=== PATIENT | male | born 1945 | race Caucasian/White ===

== ENCOUNTER 2024-12-23 19:59 | Emergency (ER) | payer MEDICARE, BC, SELFPAY ==
[2024-12-23] VITALS (17 sets, daily range): BP systolic 118–138; BP diastolic 60–84; PULSE 55–78; RESP 16–916; TEMP 36.8; O2SAT 91–98; BMI 22.4
--- OUTSIDE RECORDS SUMMARY | 2024-12-23 20:01 | XMS_ITS | Clinical Summary ---
Author Organization [facility] Address [address] , [address] [place] [address] Phone Care Team Providers Care Ripsaw Grader Name Role Phone Kathleen Kumar DO [phone] Conditions or Problems Problem Name Problem Code Onset Date Status Entry Date Provider Comment Standard Description Annotate Seizure disorder 386211717 (SNOMED CT) Active Linda Brennan MD Seizure disorder Medications Medication Instructions Start Date Stop Date Generic Name [facility] Provider VIMPAT 50 MG TABS 1 po bid for 1 wk then 2 po bid lacosamide [id number] Kathleen León Stacy DO LAMOTRIGINE 25 MG TABS 1 po qhs for 2 wks, then 1 bid for 2 wks, then 2 bid for 1 wk, then 3 bid for 1 wk, then 4 bid lamotrigine 61178523975 Kathleen León Stacy DO LAMOTRIGINE 25 MG TABS lamotrigine 08410303406 Kathleen León Stacy DO VIMPAT 50 MG TABS 1 po bid for 1 wk then 2 po bid lacosamide [id number] Kathleen Mau Stacy DO LEVETIRACETAM 750 MG TABS 2 tabs po in AM, 3 tabs pM levetiracetam [id number] Param Kennedy PA-C LEVETIRACETAM 750 MG TABS 3 po bid levetiracetam 60811940219 Chel Pop RN KEPPRA 1000 MG TABS 1 tablet twice a day levetiracetam 94773275832 Linda Brennan MD LEVETIRACETAM 750 MG TABS 2 po bid levetiracetam [id number] Kathleen León Stacy DO LEVETIRACETAM 750 MG TABS levetiracetam 40474807393 Kathleen León Stacy DO KEPPRA 500 MG TABS 2 tabs twice a day levetiracetam 81031392349 Linda Brennan MD KEPPRA 1000 MG TABS 1 tablet twice a day levetiracetam 73653522218 Linda Brennan MD KEPPRA 500 MG TABS 2 tabs twice a day LEVETIRACETAM [id number] Linda Brennan MD TERBINAFINE HCL TABS TERBINAFINE HCL TABS [id number] Linda Brennan MD KEPPRA 500 MG TABS 1 tab twice a day LEVETIRACETAM [id number] Linda Brennan MD Medications Administered No information available. Allergies, Adverse Reactions, Alerts Allergy Name Reaction Description Start Date Severity Statu s Provider PEANUTS Critical Active Linda karimi MD Results Date Name Value Unit Range Flag Description Internal Other: Verbal Autho rization/Emergency Contact - OBS VERBAL_EMER DONE Verbal au thorization and emergency contact Internal Other: Authorizatio n - OBS [id number] Yes GE use only - for LinkLog[employer] import when terms are not otherwise specified HIECONSENT Yes Consent To Release information to the Health Information Exchange (HIE) Telemedicine: Telemedicine V isit fax MEDS REVIEW Done Documenta tion of current medications (procedure) Plan of Care Type Date Detail Pending order Follow up Pending order Follow up Pending order Lamotrigine (Sweet ictal) Pending order Telemedicine Fol low up Pending order Telemedicine Fol low up Pending Order exclud ed from report: Pending order Lamotrigine (Sweet ictal) Pending order Telemedicine Fol low up Pending order Follow up KWABENA Pending order Levetiracetam (K eppra) Pending order Instructions for Staff Pending order Patient Instruct ions Pending order Follow up Pending order Creatinine Serum Pending order Levetiracetam (K eppra) Pending order We will contact you with test results Pending order Follow up Pending order Follow up after testing Pending order EEG Routine Procedures Code Procedure Name Date Entry Date ORDERS Telemedicine Follow up 09/10 ORDERS Telemedicine Follow up 08/26 ORDERS Follow up KWABENA ORDERS Levetiracetam (Keppra) 07/17 ORDERS Patient Instructions ORDERS Instructions for Staff 05/19 ORDERS Follow up ORDERS Levetiracetam (Keppra) 12/25 ORDERS Creatinine Serum ORDERS We will contact you with test results 07/09/23 ORDERS Follow up ORDERS Follow up after testing 2019 ORDERS EEG Routine [id number] EEG EXTENDED 41-60mins (END) Vital Signs Date Name Value Unit Description Height 71 [in_us] height E&M BMI (Body Mass Index) 22.14 kg/m2 Bod y Mass Index (Ratio) BP Diastolic 80 mm[Hg] blood pressu re, diastolic BP Systolic 145 mm[Hg] blood pressur e, systolic Heart Rate 68 /min pulse rate Weight Measured 158.2 [lb_av] weight E& M Weight Measured 158.2 [lb_av] weight E& M Immunizations No information available. Advance Directives No information available.
--- OUTSIDE RECORDS SUMMARY | 2024-12-23 20:02 | XMS_ITS | Data Portability ---
Author Organization [place] - [facility], [employer] - [employer] [facility] Address [address] [place] [address] Assessment Encounter Date Assessment Date Assessment LastModified by Organization Details LastModified Time 09/03/2024 09/03/2024 ASSESSMENT: Patient is a good candidate for conservative care and the prognosis is for a favorable outcome that achieves the patients' goals. We discussed etiology, activity modifications, home care, and other treatment options. Initially, it is recommended that the patient receive in-office treatment 1 times per week for 8 weeks at which time a re-evaluation will be performed to determine an appropriate change in plan. Initially, treatment will focus on joint manipulation to restore range of motion and reduce pain. We will slowly progress to therapeutic exercises and activities to improve function, strength, and stability may also be used as warranted. If the patient is not responding as expected, more invasive procedures will be discussed along with a referral. All considerations above were discussed with the patient and questions answered to satisfaction. If the patient should have any additional questions, or should the condition evolve or worsen, the patient should not hesitate to contact our office. ASSESSMENT: Patient is a good candidate for conservative care and the prognosis is for a favorable outcome that achieves the patients' goals. We discussed etiology, activity modifications, home care, and other treatment options. Initially, it is recommended that the patient receive in-office treatment 1 times per week for 8 weeks at which time a re-evaluation will be performed to determine an appropriate change in plan. Initially, treatment will focus on joint manipulation to restore range of motion and reduce pain. We will slowly progress to therapeutic exercises and activities to improve function, strength, and stability may also be used as warranted. If the patient is not responding as expected, more invasive procedures will be discussed along with a referral. All considerations above were discussed with the patient and questions answered to satisfaction. If the patient should have any additional questions, or should the condition evolve or worsen, the patient should not hesitate to contact our office. ecram Not available 09/03/2024 18:54:22 10/12/2024 10/12/2024 ASSESSMENT: Patient is a good candidate for conservative care and the prognosis is for a favorable outcome that achieves the patients' goals. We discussed etiology, activity modifications, home care, and other treatment options. Initially, it is recommended that the patient receive in-office treatment 1 times per week for 8 weeks at which time a re-evaluation will be performed to determine an appropriate change in plan. Initially, treatment will focus on joint manipulation to restore range of motion and reduce pain. We will slowly progress to therapeutic exercises and activities to improve function, strength, and stability may also be used as warranted. If the patient is not responding as expected, more invasive procedures will be discussed along with a referral. All considerations above were discussed with the patient and questions answered to satisfaction. If the patient should have any additional questions, or should the condition evolve or worsen, the patient should not hesitate to contact our office. ASSESSMENT: Patient is a good candidate for conservative care and the prognosis is for a favorable outcome that achieves the patients' goals. We discussed etiology, activity modifications, home care, and other treatment options. Initially, it is recommended that the patient receive in-office treatment 1 times per week for 8 weeks at which time a re-evaluation will be performed to determine an appropriate change in plan. Initially, treatment will focus on joint manipulation to restore range of motion and reduce pain. We will slowly progress to therapeutic exercises and activities to improve function, strength, and stability may also be used as warranted. If the patient is not responding as expected, more invasive procedures will be discussed along with a referral. All considerations above were discussed with the patient and questions answered to satisfaction. If the patient should have any additional questions, or should the condition evolve or worsen, the patient should not hesitate to contact our office. ecram Not available 10/12/2024 14:16:51 Plan of Treatment Reminders Order Date Submit Date Provider Last Modified By Organization Details Last Modified Time Details Appointments None record ed. Lab None record ed. Referral None record ed. Procedures None record ed. Surgeries None record ed. Imaging None record ed. Medication Orders None record ed. Patient TargetsNo targets recorded. Patient InstructionsNo instructions recorded. Reason for Referral None Reported. Problems Name Problem SNOMED Code Status Onset Date Resolution Date Notes Provider Name and Address Organization Details Recorded Time Neck pain 91778206 Active 2024 Jordon Lewis DC [address] [place], [address], [place] [facility] 18:54:19 Cervical segmental dysfunction 475949431 Active 2024 Jordon Lewis DC [address], [place], [address], [facility] [place] [facility] 18:54:19 Lumbar segmental dysfunction 905125229 Active 2024 Jordon Lewis DC [address], [place], [address], [facility] [place] [facility] 18:54:19 Thoracic segmental dysfunction 200662489 Active 2024 Jordon Lewis DC [address], [place], [address], [facility] [place] [facility] 18:54:19 Low back pain 270745984 Active 2024 Jordon Lewis DC [address], [place], [address], [facility] [place] [facility] 18:54:23 Somatic dysfunction of sacral spine 197812181 Active 2024 Jordon Lewis DC [address], [place], [address], [facility] 18:54:23 Problem Notes None recorded. Procedures Surgical History Date Name Laterality Status Provider Name and Address Organization Details Recorded Time 5 46021: Spinal manipulation , 3 to 4 regions completed Jordon Lewis DC [address], [place], [address], [facility] 10/12/2024 14:16:50 5 [address]001: Spinal manipulation , 3 to 4 regions completed Jordon Lewis DC [address], [address], [facility] 09/03/2024 19:11:23 Imaging Results None recorded. Procedure Notes None recorded. Medical Equipment None Reported. Medications Name Sig Start Date Stop Date Status Note LastModified by Organization Details LastModified Time levetiraceta m 500 mg tablet TAKE ONE TABLET BY MOUTH TWICE DAILY* active Not Available Not Available No t Available Anucort-HC 25 mg suppository insert 1 suppository by rectal route twice daily.* active Not Available Not Available No t Available oxcarbazepin e 300 mg tablet TAKE 1 & 1/2 TABLETS BY MOUTH IN THE MORNING AND 1 TAB IN THE EVENING* active Not Available Not Available No t Available hydrocortiso ne 2.5 % topical cream with perineal applicator Apply topically to affected area(s) three times daily.* active Not Available Not Available No t Available benzonatate 100 mg capsule TAKE ONE CAPSULE BY MOUTH THREE TIMES DAILY NEEDED FOR COUGH* active Not Available Not Available N ot Available codeine 10 mg-guaifenes in 100 mg/5 mL oral liquid Take 5 TO 10 mL by mouth every 4 hours if needed for Cough.* active Not Available Not Available No t Available levetiraceta m 750 mg tablet TAKE ONE TABLET BY MOUTH TWICE DAILY* active Not Available Not Available No t Available GaviLyte-G 236 gram-22.74 gram-6.74 gram-5.86 gram oral solution Drink 2 liters the day before colonoscopy and 2 liters 6 hours before colonoscopy appointment * active Not Available Not Available No t Available baclofen 5 mg tablet TAKE ONE OR TWO TABLETS BY MOUTH THREE TIMES DAILY NEEDED FOR HICCUPS* active Not Available Not Available No t Available Vitals None Recorded Social History None recorded. Functional Status None recorded. Mental Status None recorded. Family History Nothing Reported. Medical History No medical history recorded. Past Encounters Encounter ID Performer Location Encounter Start Date Encounter Closed Date Diagnosis/Indication Diagnosis SNOMED-CT Code Diagnosis ICD10 Code Diagnosis Note [id number] [facility] Cavaz[facility] [address] [place] [address] 09/03/2024 15:17:17 09/04/2024 09:46:34 Cervical segmental dysfunction 324761192 M99.01 Neck pain 07279267 M54.2 Thoracic s egmental dysfunction 700677911 M99.02 Lumbar seg mental dysfunction 418096937 M99.03 Low back pain 716155061 M54.50 Somatic dy sfunction of sacral spine 863447714 M99.04 [id number] [facility]A Cavazos [facility] [address] [place] [address] 10/12/2024 11:10:55 10/12/2024 15:37:09 Cervical segmental dysfunction 505298654 M99.01 Neck pain 41663234 M54.2 Thoracic s egmental dysfunction 267123777 M99.02 Lumbar seg mental dysfunction 229709403 M99.03 Low back pain 683244871 M54.50 Somatic dy sfunction of sacral spine 631898956 M99.04 Health Concerns Section Related Observation LastModified by Organization Detai ls LastModified Time None Recorded Concern Status LastModified by Organization Details LastModified Time None Recorded Advance Directives Directive None Recorded Payers Insurance Date Sequence Insurance Name Policy Number Policy Stokes Covered Member ID Stokes Member ID Guarantor Name 10/11/2024 1 [place] [employer] Javier Scott [id number] Javier Scott 10/11/2024 2 [place] [id number] Javier Scott [id number] Javier Scott Notes Date Note Type Note Provider Name and Address Organization Details Recorded Time 09/03/2024 text/html HPI - Cervical SpineReported bypatient.Location: right Quality:aching Severity:moderate Timing:gradual Context:atraumatic Alleviating Factors:chiropracti c care; rest Aggravating Factors:bending; twisting/turning Associated Symptoms:no numbness/tinglingHP I - Lumbar SpineReported bypatient.Location: right; With radiation to knee Quality:aching Severity:mild Context:bending; lifting; twisting Aggravating Factors:lifting; twisting; bending/squatting Alleviating Factors:nothing helps Jordon Lewis DC [address], [place], [address], [facility] 09/03/2024 19:11:37 10/12/2024 text/html HPI - Cervical SpineReported bypatient.Location: right Quality:aching Severity:moderate Timing:gradual Context:atraumatic Alleviating Factors:chiropracti c care; rest Aggravating Factors:bending; twisting/turning Associated Symptoms:no numbness/tinglingHP I - Lumbar SpineReported bypatient.Location: right; With radiation to knee Quality:aching Severity:mild Context:bending; lifting; twisting Aggravating Factors:lifting; twisting; bending/squatting Alleviating Factors:nothing helps Jordon Lewis DC [address] [place] [address], [place], [address], [facility] 10/12/2024 14:17:49
--- OUTSIDE RECORDS SUMMARY | 2024-12-23 20:02 | XMS_ITS | Data Portability ---
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 01/20, good FLOW, DRY. PSA STABLE 0.13. INTERESTED IN TREATMENTS FOR E.D.REVIEWED MEDICAL THERAPY ORDERED, AND REVIEWED PSA PLAN SCRIPTS FOR VIN CASANOVA. RTC 6 MO PSA. Not available 03/29/2023 13:11:34 10/04/2023 10/04/2023 78 y/o male, HX CAP, G8,(4,4), G6(3,3), S/P CRYOTHERAPY 2021. DOING WELL. GOOD FLOW DRY. PSA 0.35 ORDERED, REVIEWED PSA PLAN RTC 6 MO.WILL GET PSA IN [place]. Not available 10/04/2023 11:38:53 04/11/2024 04/11/2024 78 y/o male, hx cap, g6, g8(4,4), S/P CRYOTHERAPY 2021. DOING WELL. GOOD FLOW, DRY. PSA STABLE 0.15 , NO COMPLAINTS. ORDERED, REVIEWED PSA PLAN HE WILL GET PSA IN 6 MO IN [place]. Not available 04/11/2024 12:21:21 12/05/2024 12/05/2024 79 Y/O MALE, HX CAP, G6, G8(4,4).S/P CRYOTHERAPY 2021. DOING WELL. GOOD FLOW, DRY. PSA 1.5. DISCUSSED NEED FOR FURTHER EVALUATION IF PSA RISES ABOVE 2.5-3.0. WOULD DO MRI SCAN AND RE BX. IF NEEDED, ORDERED REVIEWED PSA PLAN RTC 6 MO. WILL FOLLOWUP WITH DR BAKER OR ANJELICA.PSA. IF RISES DO MRI SCAN. RE BX, POSSIBLE RADIATION. Not available 12/10/2024 13:20:46 Plan of Treatment Reminders Order Date Submit Date Provider Last Modified By Organization Details Last Modified Time Details Appointments PSA 10 2024 10:20A M [facility] Not available Not available Not available APC EST 2024 10:30A M RANDALL SRINIVASAN Not available Not available Not available Lab PSA, serum or plasma 2024 025 ssamb [facility], [address], [place], [address], 12/05/2024 14:30:28 PSA, serum or plasma 2023 024 [facility], [address], [place], [address], 04/11/2024 12:22:15 PSA, serum or plasma 2023 024 ssamb [facility], [address], [place], [address], 10/04/2023 11:25:53 PSA, serum or plasma 2022 023 [facility], [address], [place], [address], 03/29/2023 11:54:06 Referral None recorded . Procedures None recorded . Surgeries None recorded . Imaging None recorded . Medication Orders Viagra 100 mg tablet 2022 023 ssamb Not available 03/30/2023 10:23:37 Cialis 20 mg tablet 2022 023 ss[facility] Not available 03/30/2023 10:23:37 Patient TargetsNo targets recorded. Patient InstructionsNo instructions recorded. Reason for Referral None Reported. Results Created Date Observation Date Name Description Value Unit Range Abnormal Flag Note LastModifiedBy Organization Detail LastModifiedTime 03/29/2003/29/2023 PSA, serum or plasm a PSA 0.39ng /mL 0-4.0 Not Available [facility] [address], [place], [address], 03/29/2023 11:53:46 10/04/19 24 10/04/2023 PSA, serum or plasm a PSA 0.35 ng/mL 0-4.0 Not Available [facility] [address], [place], [address], 10/04/2023 11:11:10 04/11/20 24 04/11/2024 PSA, serum or plasm a PSA 0.15 ng/mL 0-4.0 NG/mL Not Available [facility] [address], [place], [address], 04/11/2024 11:54:15 12/06/19 25 12/05/2024 PSA, serum or plasm a PSA 1.5 ng/ml 0-4.0 NG/mL Not Available [facility] [address], [place], [address], 12/05/2024 14:30:07 Result Notes None recorded. Problems Name Problem SNOMED Code Status Onset Date Resolution Date Notes Provider Name and Address Organization Details Recorded Time Malignant neoplasm of prostate 869236505 Active 020 Tay cervantes [facility] 0 10:56:50 Problem Notes None recorded. Procedures Surgical History Date Name Laterality Status Provider Name and Address Organization Details Recorded Time 5 COMPLEX VISIT completed Valentin Jimenez MD [address] [facility],[address], [place], [address], [facility] 12/10/2024 13:17:47 4 COMPLEX VISIT completed Valentin Jimenez MD [address] [place] [address],[address], [place], [address], [facility] 04/11/2024 12:21:48 4 CREPE MAKER/blood draw completed Valentin Jimenez MD [address] [place] [address],[address], [place], [address], [facility] 04/11/2024 11:54:00 4 CREPE MAKER/blood draw completed Valentin Jimenez MD [address] [place] [address],[address], [place], [address], [facility] 10/04/2023 11:11:06 3 Blood Draw/CREPE MAKER/PSA RESULTS completed Valentin Jimenez MD [address] [place] [address],[address], [place], [address], [facility] 03/29/2023 11:53:42 3 CREPE MAKER/blood draw completed Valentin Jimenez MD [address] [place] [address],[address], [place], [address], [facility] 09/07/2022 11:19:39 2 Blood Draw/CREPE MAKER/PSA RESULTS completed Valentin Jimenez MD [address] [place] [address],[address], [place], [address], [facility] 03/10/2022 14:46:12 1 Blood Draw/CREPE MAKER/PSA RESULTS completed Valentin Jimenez MD [address] [place] [address],[address], [place], [address], [facility] 03/27/2021 11:12:53 1 Blood Draw/CREPE MAKER/PSA RESULTS completed Valentin Jimenez MD [address] [place] [address],[address], [place], [address], [facility] 09/24/2020 11:02:16 0 Colonoscopy completed Ida Stanley [facility] 03/28/2021 11:55:18 0 Blood Draw/CREPE MAKER/PSA RESULTS completed Lizzeth Reina [facility] 03/26/2020 12:00:39 0 cryosurgery completed Tay Munoz [facility] 01/22/2020 10:57:26 Imaging Results None recorded. Procedure Notes None recorded. Medical Equipment None Reported. Allergies No known drug allergies Medications Name Sig Start Date Stop Date Status Note LastModified by Organization Details LastModified Time prednisone 10 mg tablet TAKE 3 TABLETS BY MOUTH ONCE DAILY WITH FOOD FOR 2 DAYS, THEN TAKE 2 TABLETS DAILY WITH FOOD FOR 2 DAYSM, THEN TAKE 1 TABLET DAILY WITH FOOD 03/10 completed Not Available Not Available Not Available cetirizine 10 mg tablet Take 1 Tablet (10 mg) by mouth once daily. active Not Available Not Available No t Available levetiracet am 500 mg tablet TAKE ONE TABLET BY MOUTH TWICE DAILY* active Not Available Not Available No t Available Anucort-HC 25 mg suppository insert 1 supposito ry by rectal route twice daily.* active Not Available Not Available No t Available oxcarbazepi ne 300 mg tablet TAKE 1 & 1/2 TABLETS BY MOUTH IN THE MORNING AND 1 TAB IN THE EVENING* active Not Available Not Available No t Available sulfamethox azole 800 mg-trimetho prim 160 mg tablet 03/10 completed Not Available Not Available Not Available tramadol 50 mg tablet 03/10 completed Not Available Not Available Not Available triamcinolo ne acetonide 0.1 % topical cream APPLY TO AFFECTED AREA ON LEGS 1-2X DAILY FOR UP TO 2 WEEKS, TAKE A 2 WEEK BREAK THEB REPEAT NEEDED FOR FLARES active Not Available Not Available No t Available lamotrigine 25 mg tablet TAKE 1 TAB BY MOUTH ONCE DAILY AT BEDTIME FOR 2 WEEKS, THEN 1 TAB TWICE DAILY FOR 2 WEEKS, THEN 2 TABS TWICE DAILY FOR 1 WEEK, THEN 3 TABS T 03/10 completed Not Available Not Available Not Available hydrocortis one 2.5 % topical cream with perineal applicator Apply topically to affected area(s) three times daily.* active Not Available Not Available No t Available terbinafine HCl 250 mg tablet TAKE ONE TABLET BY MOUTH DAILY FOR TWO WEEKS, THEN TAKE A TWO WEEK BREAK. REPEAT FOR A TOTAL OF FOUR MONTHS. 03/29 completed Not Available Not Available Not Available hydrocortis one valerate 0.2 % topical ointment Apply topically to affected area(s) 2 times daily. 03/10 completed Not Available Not Available Not Available tamsulosin 0.4 mg capsule Take 1 capsule every day by oral route for 30 days. 03/10 completed Not Available Not Available Not Available benzonatate 100 mg capsule TAKE ONE CAPSULE BY MOUTH THREE TIMES DAILY NEEDED FOR COUGH* 04/11 completed Not Available Not Available Not Available cephalexin 500 mg capsule TAKE ONE CAPSULE BY MOUTH THREE TIMES DAILY FOR 7 DAYS 03/10 completed Not Available Not Available Not Available triamcinolo ne acetonide 0.1 % topical ointment Apply to affected area(S) three times daily active Not Available Not Available No t Available hydrocortis one 2.5 % topical cream apply to affected area(s) by topical route twice daily as needed for itching. 03/10 completed Not Available Not Available Not Available codeine 10 mg-guaifene sin 100 mg/5 mL oral liquid Take 5 TO 10 mL by mouth every 4 hours if needed for Cough.* 04/11 completed Not Available Not Available Not Available levetiracet am 750 mg tablet TAKE ONE TABLET BY MOUTH TWICE DAILY* active Not Available Not Available No t Available Viagra 100 mg tablet Take 1 tablet as needed by oral route. 2022 active Not Available Not Available Not Avai lable levofloxaci n 500 mg tablet 03/10 completed Not Available Not Available Not Available lamotrigine 100 mg tablet TAKE ONE TABLET BY MOUTH TWICE DAILY active Not Available Not Available No t Available naproxen 500 mg tablet 03/10 completed Not Available Not Available Not Available Cialis 20 mg tablet TAKE ONE TABLET NEEDED, NOT TO EXCEED ONE PILL IN 72 HOURS 2022 active Not Available Not Available Not Avai lable Keppra active Not Available Not Availa ble Not Available levetiracet am 1,000 mg tablet TAKE ONE TABLET BY MOUTH TWICE DAILY active Not Available Not Available No t Available GaviLyte-G 236 gram-22.74 gram-6.74 gram-5.86 gram oral solution Drink 2 liters the day before colonosco py and 2 liters 6 hours before colonosco py appointme nt* 04/11 completed Not Available Not Available Not Available baclofen 5 mg tablet TAKE ONE OR TWO TABLETS BY MOUTH THREE TIMES DAILY NEEDED FOR HICCUPS* active Not Available Not Available No t Available Vitals Date Recorded Body height Body mass index (BMI) Body weight Provider Name and Address Organization Details Last Updated DateTime 10/04/2023 182.88 cm 21.4 kg/m2 20120.59 dany Jimenez MD [address] [place] [address],[address] 10/04/2023 11:10:02 Date Recorded Body height Body mass index (BMI) Body weight Provider Name and Address Organization Details Last Updated DateTime 12/05/2024 182.88 cm 21.7 kg/m2 55659.78 g Tay Munoz [facility] 12/05/2024 14:12:34 Date Recorded Body height Body mass index (BMI) Body weight Provider Name and Address Organization Details Last Updated DateTime 03/29/2023 182.88 cm 21.4 kg/m2 77066.59 dany Jimenez MD [address] [place] [address],[address] 03/29/2023 11:51:27 Date Recorded Body height Body mass index (BMI) Body weight Provider Name and Address Organization Details Last Updated DateTime 04/11/2024 182.88 cm 21.7 kg/m2 97393.78 dany Jimenez MD [address] [place] [address],[address] 04/11/2024 11:52:42 Social History Question Answer Notes LastModified by Organ[employer] Details LastModified Time Tobacco Smoking Status [facility] 10:57:02 What Is Your Level Of Caffeine Consumption? None Information not available 10/04/2023 What Was The Date Of Your Most Recent Tobacco Screening? 12/05/2024 [facility] Information not available 12/05/2024 Has Tobacco Cessation Counseling Been Provided? No Information not available 10/04/2023 Sex: Unknown Functional Status Question Answer Note LastModified by Organizat ion Details LastModified Time Do you use any illicit or recreational drugs? No Information not available 10/04/2023 Do you or have you ever used any other forms of tobacco or nicotine? No Information not available 10/04/2023 What is your level of alcohol consumption? None Information not available 03/29/2023 Mental Status None recorded. Family History Relationship Description Onset Age of this Age Resolved Age Notes LastModified by Organization Details LastModified Time Father No current problems or disability Not available 10/03 11:14:24 Mother No current problems or disability Not available 10/03 11:14:24 Medical History Condition Response Other N High Blood Pressure N Kidney Stones N Lung Disease N Depression N GERD/Acid Reflux N Diabetes N Sexually Transmitted Infection N Bleeding Disorder N Cancer Y High Cholesterol N Heart Disease N Immunizations Vaccine Type Date Status Note Provider Nam e and Address Organization Details Recorded Time zoster recombinant 1 completed Valentin Jimenez MD [address] [place] [address],[address], [address], [facility] 10/04/2023 11:10:09 zoster recombinant 1 completed Valentin Jimenez MD [address] [place] [address],[address], [address], [facility] 10/04/2023 11:10:09 Influenza, adjuvanted, quadrivalent, PF 0 completed Valentin Jimenez MD [address] [place] [address],[address], [address], [facility] 10/04/2023 11:10:09 Influenza, adjuvanted, quadrivalent, PF 1 completed Valentin Jimenez MD [address] [place] [address],[address], [address], [facility] 10/04/2023 11:10:09 COVID-19, mRNA, LNP-S, PF, 100 mcg/0.5mL dose or 50 mcg/0.25mL dose 1 completed Valentin Jimenez MD [address] [place] [address],[address], [address], [facility] 10/04/2023 11:10:09 COVID-19, mRNA, LNP-S, PF, 100 mcg/0.5mL dose or 50 mcg/0.25mL dose 1 completed Valentin Jimenez MD [address] [place] [address],[address], [place], [address], [facility] 10/04/2023 11:10:09 COVID-19, mRNA, LNP-S, PF, 100 mcg/0.5mL dose or 50 mcg/0.25mL dose 1 completed Valentin Jimenez MD [address] [place] [address],[address], [place], [address], [facility] 10/04/2023 11:10:09 Tdap 8 completed Valentin Jimenez MD [address] [place] [address],[address], [place], [address], [facility] 10/04/2023 11:10:09 Td (adult), 5 Lf tetanus toxoid, preservative free, adsorbed 6 completed Valentin Jimenez MD [address] [place] [address],[address], [place], [address], [facility] 10/04/2023 11:10:09 Td (adult), 2 Lf tetanus toxoid, preservative free, adsorbed 6 completed Valentin Jimenez MD [address] [place] [address],[address], [place], [address], [facility] 10/04/2023 11:10:09 COVID-19, mRNA, LNP-S, PF, 30 mcg/0.3 mL dose, karan-sucrose 2 completed Valentin Jimenez MD [address] [place] [address],[address], [place], [address], [facility] 04/11/2024 11:52:31 Influenza, high-dose, quadrivalent, PF 2 completed Not Available [facility] 12/05/2024 14:01:12 COVID-19, mRNA, LNP-S, bivalent, PF, 50 mcg/0.5 mL or 25mcg/0.25 mL dose 2 completed Not Available [facility] 12/05/2024 14:01:12 Pneumococcal conjugate PCV20, polysaccharide MSQ025 conjugate, adjuvant, PF 3 completed Not Available [facility] 12/05/2024 14:01:12 Influenza, high-dose, quadrivalent, PF 3 completed Not Available [facility] 12/05/2024 14:01:12 Past Encounters Encounter ID Performer Location Encounter Start Date Encounter Closed Date Diagnosis/Indication Diagnosis SNOMED-CT Code Diagnosis ICD10 Code Diagnosis Note [id number] [place] [id number] 01/22/2020 10:49:30 01/23/2020 09:36:11 Benign prostatic hyperplasia with outflow obstruction 518478925 N40.1 Malignant neoplasm of prostate 916615166 C61 [id number] MD Fernanda [address] [place] [id number] 03/26/2020 11:34:52 03/26/2020 14:30:13 Malignant neoplasm of prostate 944035821 C61 [id number] MD Fernanda [address] [place] [id number] 09/24/2020 10:49:31 09/25/2020 16:19:16 Malignant neoplasm of prostate 956712046 C61 [id number] MD Fernanda [address] [place] [id number] 03/27/2021 10:50:55 03/30/2021 09:23:15 Malignant neoplasm of prostate 657901642 C61 [id number] MD Fernanda [address] [place] [id number] 09/25/2021 10:33:09 09/28/2021 09:00:53 Malignant neoplasm of prostate 473195510 C61 [id number] MD Fernanda Fonseca. [place] [id number] 03/10/2022 14:37:11 03/12/2022 13:10:21 Malignant neoplasm of prostate 882986797 C61 Prostate s pecific antigen above reference range 469297087 R97.20 [id number] MD Fernanda Fonsec[address]. [place] [id number] 09/07/2022 11:10:34 09/09/2022 10:47:12 Malignant neoplasm of prostate 356928898 C61 [id number] [facility] [address] [place] [id number] 03/29/2023 11:17:56 04/06/2023 11:27:05 Malignant neoplasm of prostate 256071823 C61 [id number] [facility] [address] [place] [id number] 03/29/2023 11:17:56 04/08/2023 04:02:29 [id number] MD MICHAELA [facility] [address] [place] [id number] 10/04/2023 11:01:14 10/05/2023 12:16:36 Malignant neoplasm of prostate 918935261 C61 [id number] MD MICHAELA [facility]on[facility] [address] [place] [address] 04/11/2024 11:42:43 04/12/2024 14:19:01 Malignant neoplasm of prostate 436077509 C61 [id number] Valentin Jimenez MD [facility] [address] [place] [id number] 12/05/2024 13:58:26 12/11/2024 16:53:52 Malignant neoplasm of prostate 143275696 C61 Health Concerns Section Related Observation LastModified by Organization Detai ls LastModified Time None Recorded Concern Status LastModified by Organization Details LastModified Time None Recorded Advance Directives Directive None Recorded Payers Insurance Date Sequence Insurance Name Policy Number Policy Stokes Covered Member ID Stokes Member ID Guarantor Name 12/11/2024 1 [place] MEDICARE COST [id number] Javier Scott [id number] Javier Scott 12/05/2024 1 [place] [id number] Javier Scott [id number] Javier Scott 12/05/2024 1 [place] - [facility] Javier Scott [id number] Javier Guy Tyler Notes Date Note Type Note Provider Name and Address Organization Details Recorded Time 03/29/2023 text/html 77 Y/O MALE, HX OF AN ELEVATED PSA . SMALL PROSTATE, NEG PROSTATE EXAM. PSA 11. PROSTATE 15 G. G6, G8(4,4) . NEG C.T. NEG BONE SCAN . HAD CRYO ON 12/23.doing well. good flow, mild freq. MOST RECENT PSA 0.11 ON 09/07/22 PSA TODAY 0.39. DISCUSSED OPTIONS FOR E.D. Valentin Jimenez MD [address] [place] [address],[address], [address], [facility] 03/29/2023 13:12:08 10/04/2023 text/html 77 Y/O MALE, HX OF AN ELEVATED PSA . SMALL PROSTATE, NEG PROSTATE EXAM. PSA 11. PROSTATE 15 G. G6, G8(4,4) . NEG C.T. NEG BONE SCAN . HAD CRYO ON 12/23.doing well. good flow, mild freq. MOST RECENT PSA 0.11 ON 09/07/22 PSA TODAY 0.39. DISCUSSED OPTIONS FOR E.D. PSA TODAY 10/04/23: 0.35 Valentin Jimenez MD [address] [place] [address],[address], [place], [address], [facility] 10/04/2023 11:39:29 04/11/2024 text/html 77 Y/O MALE, HX OF AN ELEVATED PSA . SMALL PROSTATE, NEG PROSTATE EXAM. PSA 11. PROSTATE 15 G. G6, G8(4,4) . NEG C.T. NEG BONE SCAN . HAD CRYO ON 12/23.doing well. good flow, mild freq. MOST RECENT PSA 0.11 ON 09/07/22 PSA TODAY 0.39. DISCUSSED OPTIONS FOR E.D. PSA TODAY 10/04/23: 0.35 PSA 04/11/24: 0.15 77 Y/O MALE, HX OF AN ELEVATED PSA . SMALL PROSTATE, NEG PROSTATE EXAM. PSA 11. PROSTATE 15 G. G6, G8(4,4) . NEG C.T. NEG BONE SCAN . HAD CRYO ON 12/23.doing well. good flow, mild freq. MOST RECENT PSA 0.11 ON 09/07/22 PSA TODAY 0.39. DISCUSSED OPTIONS FOR E.D. PSA TODAY 10/04/23: 0.35 PSA 04/11/24: 0.15doing well no complaints. Valentin Jimenez MD [address] [facility] [facility],[address], [place], [address], [facility] 04/11/2024 12:22:18 12/05/2024 text/html 77 Y/O MALE, HX OF AN ELEVATED PSA . SMALL PROSTATE, NEG PROSTATE EXAM. PSA 11. PROSTATE 15 G. G6, G8(4,4) . NEG C.T. NEG BONE SCAN . HAD CRYO ON 12/23.doing well. good flow, mild freq. MOST RECENT PSA 0.11 ON 09/07/22 PSA TODAY 0.39. DISCUSSED OPTIONS FOR E.D. PSA 10/04/23: 0.35PSA 04/11/24: 0.15doing well no complaints. PSA TODAY 12/05/2024: 1.5 Valentin Jimenez MD [address] [place] [address],[address], [place], [address], [facility] 12/10/2024 13:21:59
--- OUTSIDE RECORDS SUMMARY | 2024-12-23 20:02 | XMS_ITS | Clinical Summary ---
Author Organization [facility] Address [address] [place] [address] Care Team Providers Care Visual Merchandising Associate Name Role Phone VotelMax MD Primary Care Provider + Allergies Active Allergy Reactions Criticality Noted Date Comments Peanut GI Upset Low 09/29/2021 Medications multivitamin (MVI) tablet Take 1 Tablet by mouth once daily. 0 2 Active levETIRAcetam (KEPPRA) 500 mg tablet levetiracetam 500 mg tablet TAKE ONE TABLET BY MOUTH TWICE DAILY. take in addition to one 750mg tablet twice daily for a total dose of 1250mg twice daily 2 Active OXcarbazepine (TRILEPTAL) 300 mg tablet TAKE 1 & 1/2 TABLETS BY MOUTH IN THE MORNING AND 1 TAB IN THE EVENING* 4 Active levETIRAcetam 750 mg tabletIndicati ons:Epilepsy with partial complex seizures (HC) Take one tablet twice daily with a 500 mg tablet 5 Active lamoTRIgine 100 mg tabletIndicati ons:Epilepsy with partial complex seizures (HC) Take 1.5 tabs in the morning and 1 tab in the evening 5 Active Active Problems Problem Noted Date Diagnosed Date Epilepsy with partial complex seizures 2 Syncope 03/30/2021 Focal seizure 11/22/2020 Memory problem 11/22/2020 Hyperglycemia 11/22/2020 Hyperkalemia 11/22/2020 Adenomatous colon polyp 05/08/2020 Overview (11/18/2023): Colonoscopy 05/2020 multiple polyps, repeat in 3 years Colonoscopy 11/2023 SSA, TA, repeat in 5 years Malignant tumor of prostate 01/22/2020 Overview (03/30/2021): Cryoablation summer 2019 Left bundle branch block (LBBB) on electrocardio gram 12/17/2015 Assessment & Plan (12/06/2019 1:33 PM CDT): Nuclear Medicine Scan in 2016 with 66% EJF. Encounters Date Type Department Care Team Description 11/14/2024 10:25 AM CDT Office Visit [facility] [address] [place] [address] Max Burns MD Medicare ANNUAL (subsequent) Visit (79 year old male) 11/13/2024 Travel from Last 3 Months Immunizations Immunization Administration Dates Next Due COVID-19 vaccine (Moderna 10 0mcg/0.5mL) MAGDALENA KNOTT 05/06/2021,09/19/2020,08/22/2020 COVID-19 vaccine ([employer] NT[employer] 30mcg/0.3mL) 12YO+ LAQUITA-SUCROSE MAGDALENA KNOTT 11/02/2021 Influenza, High-dose Quadriv alent Inactivated 04/18/2023,04/19/2022 Influenza, Inactivated AIIV4 (Age 65+ Years) Preserv Free 04/23/2021,04/16/2020 Pneumococcal Conj 20-valent (Prevnar 20) 023 Td (Age >=7 Years) 12/19/1995 Td, Preservative Free (age >= 7 Years) 6 Tdap 09/03/2017,04/07/2006,12/19/1995 Zoster (Shingrix-RZV, recombinant) 06/29/2021, Family History Medical History Relation Name Comments Cancer Father Brain, lung and lip CA Cancer Mother Intestinal Other Other no history of s eizures Relation Name Status Comments Father (Age 83) Brain canc er Mother (Age 83) Old age Other Social History Tobacco Use Types Packs/Day Years Used Date Smoking Tobacco: Never Smokeless Tobacco: Never Tobacco Cessation:Counseling Given: Yes Alcohol Use Standard Drinks/Week Comments Never 0 (1 standard drink = 0.6 oz pur e alcohol) PHQ-2 Answer Date Recorded PHQ-2 TOTAL SCORE 0 11/13/2024 Social Connections Answer Date Recorded Do you often feel lonely or isolated from those around you? 0 11/13/2024 Financial Resource Strain Answer Date R ecorded Difficulty of Paying Living Expenses 3 11/13/2024 Difficulty of Paying Living Expenses Not on file 11/13/2024 Food Insecurity Answer Date Recorded Do you worry your food will run out before you are able to buy more? 1 11/13/2024 Transportation Needs Answer Date Record ed Does lack of transportation keep you from medica l appointments? 1 11/13/2024 Does lack of transportation keep you from work, meetings or getting things that you need? 1 11/13/2024 Housing Stability Answer Date Recorded What is your housing situation today? 1 11/13/2024 Utilities Answer Date Recorded Do you have trouble paying f or utilities (for example, heat, electricity, water, phone)? 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67 11/14/2024 10:19 AM CDT Plan of Treatment Health Maintenance Due Date Last Done Comments RSV vaccine for adults or (1 - 1-dose 75+ series) 2021 COVID-19 vaccine series ( season) 2024 04/19/2022, 11/02/2021, 05/06/2021, Additional history exists Influenza Vaccine (Season Ended) 2025 04/23/2021, 04/16/2020 Depression screening for age 12+ 11/13/2025 11/13/2024, 11/10/2023, 11/10/2023, Additional history exists BMI (ht and wt on same day) for age 18+ 11/14/2025 11/14/2024, 11/10/2023, 09/28/2023, Additional history exists Medicare Wellness for age 65+ 11/15/2025 11/14/2024, 11/10/2023, 11/04/2022, Additional history exists Tetanus booster 09/04/2027 09/03/2017, 0 11/2005, 04/07/2006, Additional history exists Tdap Completed 09/03/2017, 11/2005, 12/19/1995 Zoster (shingles) series for age 50+ Completed 06/29/2021, 04/28/2021 Hepatitis C screening for age 18-79 Completed 11/02/2021 Pneumococcal series for age 50+ Completed 11/04/2022 Hepatitis B series for 19+ Aged Out N o longer eligible based on patient's age to complete this topic Procedures Procedure Name Priority Date/Time Associated Diagnosis Comments CBC WITH AUTO DIFFERENTIAL Routine 11/14/2024 11:04 AM CDT Medicare annual wellness visit, subsequent ALT (SGPT) Routine 11/14/2024 11:04 AM CDT Lipid screening BASIC METABOLIC PANEL Routine 11/14/2024 11:04 AM CDT Epilepsy with partial complex seizures (HC) ANTI HCV Routine 11/02/2021 10:22 AM CDT Need for hepatitis C screening test from Last 3 Months or Most Recently Relevant to Health Maintenance Results * (ABNORMAL) CBC AND DIFFERENTIAL (11/14/2024 11:04 AM CDT) [facility] WHITE BLOOD CELL COUNT 5.8 3.8 - 10.8 Thousand/u L [facility] RED BLOOD CELL COUNT 4.85 4.20 - 5.80 Million/uL [facility] HEMOGLOBIN 15.3 13.2 - 17.1 g/dL [facility] HEMATOCRIT 46.4 38.5 - 50.0 % [facility] MCV 95.7 80.0 - 100.0 fL [facility] MCH 31.5 27.0 - 33.0 pg [facility] MCHC 33.0 32.0 - 36.0 g/dL [facility] Comment: For adults, a slight decrease in the calculated MCHC value (in the range of 30 to 32 g/dL) is most likely not clinically significant; however, it should be interpreted with caution in correlation with other red cell parameters and the patient's clinical condition. RDW 12.2 11.0 - 15.0 % [facility] PLATELET COUNT 212 140 - 400 Thousand/u L [facility] MPV 9.9 7.5 - 12.5 fL [facility] ABSOLUTE NEUTROPHILS 4,559 1,500 - 7,800 cells/uL [facility] ABSOLUTE LYMPHOCYTES 626(L) 850 - 3,900 cells/uL [facility] ABSOLUTE MONOCYTES 505 200 - 950 cells/uL [facility] ABSOLUTE EOSINOPHILS 81 15 - 500 cells/uL [facility] ABSOLUTE BASOPHILS 29 0 - 200 cells/uL [facility] NEUTROPHILS 78.6 % [facility] LYMPHOCYTES 10.8 % [facility] MONOCYTES 8.7 % [facility] EOSINOPHILS 1.4 % [facility] BASOPHILS 0.5 % [facility] Blood BLOOD SPECIMEN / Unknown 11/14/2024 11:04 AM CDT 11/14/2024 11:05 AM CDT us Max Burns MD HEMATOLOGY Final Re sult Performing Organization Address [facility]/ZIP Co de Phone Number [employer] [facility] [address] [place] [address], [facility] [address] [place] [address] * ALT (SGPT) (11/14/2024 11:04 AM CDT) [facility] ALT 12 9 - 46 U/L [facility] Blood BLOOD SPECIMEN / Unknown 11/14/2024 11:04 AM CDT 11/14/2024 11:05 AM CDT Max Burns MD CHEMISTRY Final Re sult Performing Organization Address [facility] Co de Phone Number [employer] [address] [address], [facility] [address] [place] [phone] * BASIC METABOLIC PANEL (11/14/2024 11:04 AM CDT) [facility] GLUCOSE 94 65 - 99 mg/dL [facility] Comment: Fasting reference interval UREA NITROGEN (BUN) 13 7 - 25 mg/dL [facility] CREATININE 1.12 0.70 - 1.28 mg/dL [facility] EGFR 67 > OR = 60 mL/min/1. 73m2 [facility] BUN/CREATININE RATIO SEE NOTE: 6 - 22 (calc) [facility] Comment: Not Reported: BUN and Creatinine are within reference range. SODIUM 139 135 - 146 mmol/L [facility] POTASSIUM 4.4 3.5 - 5.3 mmol/L [facility] CHLORIDE 100 98 - 110 mmol/L [facility] CARBON DIOXIDE 30 20 - 32 mmol/L [facility] ELECTROLYTE BALANCE 9 7 - 17 mmol/L (calc) [facility] CALCIUM 9.8 8.6 - 10.3 mg/dL [facility] Blood BLOOD SPECIMEN / Unknown 11/14/2024 11:04 AM CDT 11/14/2024 11:05 AM CDT us Max Burns MD CHEMISTRY Final Re sult [facility] [address] [place] [address], [facility] [address] [place] [address] * ANTI HCV (11/02/2021 10:22 AM CDT) Pathologist [facility] HEPATITIS C ANTIBODY Non-React casi Non-React casi 11/02/2021 6:53 PM CDT [facility] Comment:Antibodies to HCV no t detected; does not exclude the possibility of exposure to HCV. Blood BLOOD SPECIMEN / Unknown Venipuncture / Unknown 11/02/2021 10:22 AM CDT 11/02/2021 10:23 AM CDT Brittany Perez DO SEND OUTS Final Result [facility] [address] [place] [address], [place] from Last 3 Months or Most Recently Relevant to Health Maintenance Insurance [place] PB ONLY MEDICARE PART B HB ONLY [facility] HB ONLY MEDICARE PART A HB ONLY [facility] Advance Directives * Full Code (Latest Code Status on File) Date Activated Date Inactivated Comments 11/22/2020 8:54 PM 11/23/2020 1:35 PM Question Answer Comments Code Status Discussion: Not Discussed * Full Code Date Activated Date Inactivated Comments 12/18/2019 10:46 AM 12/18/2019 7:15 PM Care Teams Visual Merchandising Associate Relationship Specialty Start Date End Date Votel, Max Ortega MD [address] [place] [address] PCP - General Family Practice 09/28/23
--- OUTSIDE RECORDS SUMMARY | 2024-12-23 20:02 | XMS_ITS | Data Portability ---
Author Organization [place] - [facility], [employer] - [employer] [facility] Address [address] [place] [address] Assessment Encounter Date Assessment Date Assessment LastModified [...] Address Organization Details Recorded Time Neck pain 90892902 Active 2024 Jordon Lewis DC [address], [place], [address], [place] [facility] 18:54:19 Cervical segmental dysfunction 718075941 Active 2024 Jordon Lewis DC [address], [place], [address], [facility] 18:54:19 Lumbar segmental dysfunction 240981288 Active 2024 Jordon Lewis DC [address], [place], [address], [facility] 18:54:19 Thoracic segmental dysfunction 569217615 Active 2024 Jordon Lewis DC [address], [place], [address], [facility] 18:54:19 Low back pain 278177907 Active 2024 Jordon Lewis DC [address], [place], [address], [facility] 18:54:23 Somatic dysfunction of sacral spine 594786137 Active 2024 Jordon Lewis DC [address], [place], [address], [facility] 18:54:23 Problem Notes None recorded. Procedures Surgical History Date Name Laterality Status Provider Name and Address Organization Details Recorded Time 5 [address]: Spinal manipulation , 3 to 4 regions completed Jordon Lewis DC [address], [place], [address], [facility] 10/12/2024 14:16:50 5 [address]: Spinal manipulation , 3 to 4 regions completed Jordon Lewis DC [address], [address], [facility] 09/03/2024 19:11:23 Imaging Results None recorded. [...] SNOMED-CT Code Diagnosis ICD10 Code Diagnosis Note [id number] BER[facility]A Cavazos [facility] [address] [place] [address] 09/03/2024 15:17:17 09/04/2024 09:46:34 Cervical segmental dysfunction 741852892 M99.01 Neck pain 47041207 M54.2 Thoracic s egmental dysfunction 468979080 M99.02 Lumbar seg mental dysfunction 686167375 M99.03 Low back pain 471190144 M54.50 Somatic dy sfunction of sacral spine 067869603 M99.04 [id number] BERTHA Cavazos [facility] [address] [place] [address] 10/12/2024 11:10:55 10/12/2024 15:37:09 Cervical segmental dysfunction 403043052 M99.01 Neck pain 93235172 M54.2 Thoracic s egmental dysfunction 556430356 M99.02 Lumbar seg mental dysfunction 741512272 M99.03 Low back pain 605250569 M54.50 Somatic dy sfunction of sacral spine 597091915 M99.04 Health Concerns Section Related Observation LastModified by Organization Detai ls LastModified Time None Recorded Concern Status LastModified by Organization Details LastModified Time None Recorded Advance Directives Directive None Recorded Payers Insurance Date Sequence Insurance Name Policy Number Policy Stokes Covered Member ID Stokes Member ID Guarantor Name 10/11/2024 1 [place] [employer] Javier Scott [id number] Javier Scott 10/11/2024 2 [place] [id number] Javier Scott [id number] Javier Scott Notes Date Note Type Note [...] Alleviating Factors:nothing helps Jordon Lewis DC [address], [place], [address], [facility] 09/03/2024 19:11:37 10/12/2024 text/html HPI - Cervical SpineReported bypatient.Location: right Quality:aching Severity:moderate Timing:gradual Context:atraumatic Alleviating Factors:chiropracti c care; rest Aggravating Factors:bending; twisting/turning Associated Symptoms:no numbness/tinglingHP I - Lumbar SpineReported bypatient.Location: right; With radiation to knee Quality:aching Severity:mild Context:bending; lifting; twisting Aggravating Factors:lifting; twisting; bending/squatting Alleviating Factors:nothing helps Jordon Lewis DC [address] [place] [address], [place], [address], [facility] 10/12/2024 14:17:49
--- OUTSIDE RECORDS SUMMARY | 2024-12-23 20:02 | XMS_ITS | Continuity of Care Document ---
Author Organization [facility] Address [address] [place] [address] Care Team Providers Care Director Case Management Name Role Phone TEETEE VASQUES Primary Care Provider [phone] Assessment Encounter Date Assessment Date Assessment LastModified by Organization Details LastModified Time 12/05/2024 12/05/2024 79 Y/O MALE, HX CAP, [...] Not available APC EST 2024 10:30A M HANS SRINIVASAN-DEMETRICE Not available Not available Not available Lab PSA, serum or plasma 2024 0604/ 025 ssamb [facility], [address], [place], [address], 12/05/2024 14:30:28 Referral None recorded . Procedures None recorded . Surgeries None recorded . Imaging None recorded . Medication Orders None recorded . Patient TargetsNo targets recorded. Patient InstructionsNo instructions recorded. Reason for Referral None Reported. Results Created Date Observation Date Name Description Value Unit Range Abnormal Flag Note LastModifiedBy Organization Detail LastModifiedTime 12/06/19 25 12/05/2024 PSA, serum or plasm a PSA 1.5 ng/ml 0-4.0 NG/mL Not Available [facility] [address], [place], [address], 12/05/2024 14:30:07 Result Notes None recorded. Problems Name Problem SNOMED Code Status Onset Date Resolution Date Notes Provider Name and Address Organization Details Recorded Time Malignant neoplasm of prostate 660614198 Active 020 [facility] 10:56:50 Problem Notes None recorded. Procedures Surgical History Date Name Laterality Status Provider Name and Address Organization Details Recorded Time 5 COMPLEX VISIT completed Valentin Jimenez MD [address] [place] [address],[facility] [address], [address], [facility] 12/10/2024 13:17:47 4 COMPLEX VISIT completed Valentin Jimenez MD [address] [place] [address],[facility] [address], [address], [facility] 04/11/2024 12:21:48 4 DESIGN ENG/blood draw completed Valentin Jimenez MD [address] [place] [address],[address], [address], [facility] 04/11/2024 11:54:00 4 DESIGN ENG/blood draw completed Valentin Jimenez MD [address] [place] [address], [address], [facility] 10/04/2023 11:11:06 3 Blood Draw/DESIGN ENG/PSA RESULTS completed Valentin Jimenez MD [address] [place] [address],[address], [address], [facility] 03/29/2023 11:53:42 3 DESIGN ENG/blood draw completed Valentin Jimenez MD [address] [place] [address],[address], [address], [facility] 09/07/2022 11:19:39 2 Blood Draw/DESIGN ENG/PSA RESULTS completed Valentin Jimenez MD [address] [place] [address],[address], [place], [address], [facility] 03/10/2022 14:46:12 1 Blood Draw/DESIGN ENG/PSA RESULTS completed Valentin Jimenez MD [address] [place] [address],[facility] [address], [address], [facility] 03/27/2021 11:12:53 1 Blood Draw/DESIGN ENG/PSA RESULTS completed Valentin Jimenez MD [address] [place] [address],[address], [place], [address], [facility] 09/24/2020 11:02:16 0 Colonoscopy completed Ida Stanley [facility] 03/28/2021 11:55:18 0 Blood Draw/DESIGN ENG/PSA RESULTS completed Lizzeth Reina [facility] 03/26/2020 12:00:39 0 cryosurgery completed Tay Munoz [facility] 01/22/2020 10:57:26 Imaging Results None [...] Updated DateTime 12/05/2024 182.88 cm 21.7 kg/m2 04692.78 g Tay Munoz [facility] 12/05/2024 14:12:34 Social History Question Answer Notes LastModified by Organizat IS Decisions Details LastModified Time Tobacco Smoking Status Never [facility]oker [facility] 01/22/2020 10:57:02 What Is Your Level Of [...] Disease N Depression N GERD/Acid Reflux N Sexually Transmitted Infection N Cancer Y High Cholesterol N Diabetes N Bleeding Disorder N Heart Disease N Immunizations Vaccine Type Date Status Note Provider Nam e and Address Organization Details Recorded Time zoster recombinant 1 completed Valentin Jimenez MD [address] [place] [address],[address], [address], [facility] 10/04/2023 11:10:09 zoster recombinant 1 completed Valentin Jimenez MD [address] [place] [address], [address], [facility] 10/04/2023 11:10:09 Influenza, adjuvanted, quadrivalent, PF 0 completed Valentin Jimenez MD [address] [place] [address],[address], [address], [facility] 10/04/2023 11:10:09 Influenza, adjuvanted, quadrivalent, PF 1 completed Valentin Jimenez MD [address] [place] [address],[address], [address], [facility] 10/04/2023 11:10:09 COVID-19, mRNA, LNP-S, PF, 100 mcg/0.5mL dose or 50 mcg/0.25mL dose 1 completed Valentin Jimenez MD [address] [place] [address],[address], [address], [facility] 10/04/2023 11:10:09 COVID-19, mRNA, LNP-S, PF, 100 mcg/0.5mL dose or 50 mcg/0.25mL dose 1 completed Valentin Jimenez MD [address] [place] [address],[address], [address], [facility] 10/04/2023 11:10:09 COVID-19, mRNA, LNP-S, PF, 100 mcg/0.5mL dose or 50 mcg/0.25mL dose 1 completed Valentin Jimenez MD [address] [place] [address],[address], [place], [address], [facility] 10/04/2023 11:10:09 Tdap 8 completed Valentin Jimenez MD [address] [place] [address],[address], [address], [facility] 10/04/2023 11:10:09 Td (adult), 5 Lf tetanus toxoid, preservative free, adsorbed 6 completed Valentin Jimenez MD [address] [place] [address],[address], [place], [address], [facility] 10/04/2023 11:10:09 Td (adult), 2 Lf tetanus toxoid, preservative free, adsorbed 6 completed Valentin Jimenez MD [address] [place] [address],[address], [address], [facility] 10/04/2023 11:10:09 COVID-19, mRNA, LNP-S, PF, 30 mcg/0.3 mL dose, karan-sucrose 2 completed Valentin Jimenez MD [address] [place] [address],[address] [place] [address], [address], [facility] 04/11/2024 11:52:31 Influenza, high-dose, quadrivalent, PF 2 completed Not Available [facility] 12/05/2024 14:01:12 COVID-19, mRNA, LNP-S, bivalent, PF, 50 mcg/0.5 mL or 25mcg/0.25 mL dose 2 completed Not Available [facility] 12/05/2024 14:01:12 Pneumococcal conjugate PCV20, polysaccharide IPV475 conjugate, adjuvant, PF 3 completed Not Available [facility] 12/05/2024 14:01:12 Influenza, high-dose, quadrivalent, PF 3 completed Not Available [facility] 12/05/2024 14:01:12 Past Encounters Encounter ID Performer Location Encounter Start Date Encounter Closed Date Diagnosis/Indication Diagnosis SNOMED-CT Code Diagnosis ICD10 Code Diagnosis Note [id number] Valentin Jimenez MD [facility] [address] [place] [address] 12/05/2024 13:58:26 12/11/2024 16:53:52 Malignant neoplasm of prostate 222136935 C61 Health Concerns Section Related Observation LastModified by Organization Detai ls LastModified Time None Recorded Concern Status LastModified by Organization Details LastModified Time None Recorded Payers Encounter Date Sequence Insurance Name Policy Number Policy Stokes Covered Member ID Stokes Member ID Guarantor Name 12/05/2024 1 [place] MEDICARE COST [id number] Javier Scott [id number] Javier Scott Notes Date Note Type Note Provider Name and Address Organization Details Recorded Time 12/05/2024 text/html 77 Y/O MALE, HX OF [...] PSA TODAY 12/05/2024: 1.5 Valentin Jimenez MD [address], [place], [address], [place] [facility] 12/10/2024 13:21:59
--- OUTSIDE RECORDS SUMMARY | 2024-12-23 20:03 | XMS_ITS | Data Portability ---
Author Organization [facility], [facility] Address [address] [place] [address] Care Team Providers Care Striping Machine Operator Name Role Phone TEETEE VASUQES Primary Care Provider Assessment Encounter Date Assessment Date Assessment LastModified [...] PLAN RTC 6 MO.WILL GET PSA IN [place]. Not available 10/04/2023 11:38:53 04/11/2024 04/11/2024 78 y/o male, hx cap, g6, g8(4,4), S/P CRYOTHERAPY 2021. DOING WELL. GOOD FLOW, DRY. PSA STABLE 0.15 , NO COMPLAINTS. ORDERED, REVIEWED PSA PLAN HE WILL GET PSA IN 6 MO IN [place]. Not available 04/11/2024 12:21:21 12/05/2024 12/05/2024 79 [...] 025 ssamb [facility], [address], [place], [address], 12/05/2024 14:30:28 PSA, serum or plasma 2023 024 [facility], [address], [place], [address], 04/11/2024 12:22:15 PSA, serum or plasma 2023 024 ssamb [facility], [address], [place], [address], 10/04/2023 11:25:53 PSA, serum or plasma 2022 023 [facility], [address], [place], [address], 03/29/2023 11:54:06 Referral None recorded . Procedures [...] Not Available [facility] [address], [place], [address], 03/29/2023 11:53:46 10/04/19 24 10/04/2023 PSA, serum or plasm a PSA 0.35 ng/mL 0-4.0 Not Available [facility] [address], [place], [address], 10/04/2023 11:11:10 04/11/20 24 04/11/2024 PSA, serum or plasm a PSA 0.15 ng/mL 0-4.0 NG/mL Not Available [facility] [address], [place], [address], 04/11/2024 11:54:15 12/06/19 25 12/05/2024 PSA, serum or plasm a PSA 1.5 ng/ml 0-4.0 NG/mL Not Available [facility] [address], [place], [address], 12/05/2024 14:30:07 Result Notes None recorded. Problems Name Problem SNOMED Code Status Onset Date Resolution Date Notes Provider Name and Address Organization Details Recorded Time Malignant neoplasm of prostate 212929843 Active 020 Tay cervantes [facility] 0 10:56:50 Problem Notes None recorded. Procedures Surgical History Date Name Laterality Status Provider Name and Address Organization Details Recorded Time 5 COMPLEX VISIT completed Valentin Jimenez MD [address], [place], [address], [facility] 12/10/2024 13:17:47 4 COMPLEX VISIT completed Valentin Jimenez MD [address] [place] [address],[address], [place], [address], [facility] 04/11/2024 12:21:48 4 NON DESTRUCTIVE TESTING SUPERVISOR/blood draw completed Valentin Jimenez MD [address] [place] [address],[address], [place], [address], [facility] 04/11/2024 11:54:00 4 NON DESTRUCTIVE TESTING SUPERVISOR/blood draw completed Valentin Jimenez MD [address] [place] [address],[address], [place], [address], [facility] 10/04/2023 11:11:06 3 Blood Draw/NON DESTRUCTIVE TESTING SUPERVISOR/PSA RESULTS completed Valentin Jimenez MD [address] [place] [address],[address], [place], [address], [facility] 03/29/2023 11:53:42 3 NON DESTRUCTIVE TESTING SUPERVISOR/blood draw completed Valentin Jimenez MD [address] [place] [address],[address], [place], [address], [facility] 09/07/2022 11:19:39 2 Blood Draw/NON DESTRUCTIVE TESTING SUPERVISOR/PSA RESULTS completed Valentin Jimenez MD [address] [place] [address],[address], [place], [address], [facility] 03/10/2022 14:46:12 1 Blood Draw/NON DESTRUCTIVE TESTING SUPERVISOR/PSA RESULTS completed Valentin Jimenez MD [address] [place] [address],[address], [place], [address], [facility] 03/27/2021 11:12:53 1 Blood Draw/NON DESTRUCTIVE TESTING SUPERVISOR/PSA RESULTS completed Valentin Jimenez MD [address] [place] [address],[address], [place], [address], [facility] 09/24/2020 11:02:16 0 Colonoscopy completed Ida Stanley [facility] 03/28/2021 11:55:18 0 Blood Draw/NON DESTRUCTIVE TESTING SUPERVISOR/PSA RESULTS completed Lizzeth Reina [facility] 03/26/2020 12:00:39 0 cryosurgery completed Tay Munoz [facility] 01/22/2020 10:57:26 Imaging Results None [...] Updated DateTime 10/04/2023 182.88 cm 21.4 kg/m2 04044.59 dany Jimenez MD [address] [place] [address],[address] 10/04/2023 11:10:02 Date Recorded Body height Body mass index (BMI) Body weight Provider Name and Address Organization Details Last Updated DateTime 12/05/2024 182.88 cm 21.7 kg/m2 97696.78 g Tay Munoz [facility] 12/05/2024 14:12:34 Date Recorded Body height Body mass index (BMI) Body weight Provider Name and Address Organization Details Last Updated DateTime 03/29/2023 182.88 cm 21.4 kg/m2 96769.59 dany Jimenez MD [address] [place] [address],[address] 03/29/2023 11:51:27 Date Recorded Body height Body mass index (BMI) Body weight Provider Name and Address Organization Details Last Updated DateTime 04/11/2024 182.88 cm 21.7 kg/m2 80452.78 dany Jimenez MD [address] [place] [address],[address] 04/11/2024 11:52:42 Social History Question Answer Notes LastModified by [employer] Details LastModified Time Tobacco Smoking Status [facility]/2020 10:57:02 What Is Your Level Of [...] zoster recombinant 1 completed Valentin Jimenez MD [address] [place] [address],[address], [address], [facility] 10/04/2023 11:10:09 zoster recombinant 1 completed Valentin Jimenez MD [address] [place] [address],[address], [address], [facility] 10/04/2023 11:10:09 Influenza, adjuvanted, quadrivalent, PF 0 completed Valentin Jimenez MD [address] [place] [address],[address], [address], [facility] 10/04/2023 11:10:09 Influenza, adjuvanted, quadrivalent, PF 1 completed Valentin Jimenez MD [address] [place] [address],[address], [address], [facility] 10/04/2023 11:10:09 COVID-19, mRNA, LNP-S, PF, 100 mcg/0.5mL dose or 50 mcg/0.25mL dose 1 completed Valentin Jimenez MD [address] [place] [address],[address], [address], [facility] 10/04/2023 11:10:09 COVID-19, mRNA, LNP-S, PF, 100 mcg/0.5mL dose or 50 mcg/0.25mL dose 1 completed Valentin Jimenez MD [address] [place] [address],[address], [place], [address], [facility] 10/04/2023 11:10:09 COVID-19, mRNA, LNP-S, PF, 100 mcg/0.5mL dose or 50 mcg/0.25mL dose 1 completed Valentin Jimenez MD [address] [place] [address],[address], [place], [address], [facility] 10/04/2023 11:10:09 Tdap 8 completed Valentin Jimenez MD [address] [place] [address],[address], [place], [address], [facility] 10/04/2023 11:10:09 Td (adult), 5 Lf tetanus toxoid, preservative free, adsorbed 6 completed Valentin Jimenez MD [address] [place] [address],[address], [place], [address], [facility] 10/04/2023 11:10:09 Td (adult), 2 Lf tetanus toxoid, preservative free, adsorbed 6 completed Valentin Jimenez MD [address] [place] [address],[address], [place], [address], [facility] 10/04/2023 11:10:09 COVID-19, mRNA, LNP-S, PF, 30 mcg/0.3 mL dose, karan-sucrose 2 completed Valentin Jimenez MD [address] [place] [address],[address], [place], [address], [facility] 04/11/2024 11:52:31 Influenza, high-dose, quadrivalent, PF 2 completed Not Available [facility] 12/05/2024 14:01:12 COVID-19, mRNA, LNP-S, bivalent, PF, 50 mcg/0.5 mL or 25mcg/0.25 mL dose 2 completed Not Available [facility] 12/05/2024 14:01:12 Pneumococcal conjugate PCV20, polysaccharide CSK138 conjugate, adjuvant, PF 3 completed Not Available [facility] 12/05/2024 14:01:12 Influenza, high-dose, quadrivalent, PF 3 completed Not Available [facility] 12/05/2024 14:01:12 Past Encounters Encounter ID Performer Location Encounter Start Date Encounter Closed Date Diagnosis/Indication Diagnosis SNOMED-CT Code Diagnosis ICD10 Code Diagnosis Note [id number] [place] [address] 01/22/2020 10:49:30 01/23/2020 09:36:11 Benign prostatic hyperplasia with outflow obstruction 896116852 N40.1 Malignant neoplasm of prostate 031018239 C61 [id number] MD Fernanda [address] [place] [id number] 03/26/2020 11:34:52 03/26/2020 14:30:13 Malignant neoplasm of prostate 350330153 C61 [id number] MD Fernanda [address] [place] [id number] 09/24/2020 10:49:31 09/25/2020 16:19:16 Malignant neoplasm of prostate 944993496 C61 [id number] MD Fernanda [address] [place] [id number] 03/27/2021 10:50:55 03/30/2021 09:23:15 Malignant neoplasm of prostate 453254114 C61 [id number] MD Fernanda [address] [place] [id number] 09/25/2021 10:33:09 09/28/2021 09:00:53 Malignant neoplasm of prostate 784463276 C61 [id number] MD Fernanda Fonseca. [place] [address] 03/10/2022 14:37:11 03/12/2022 13:10:21 Malignant neoplasm of prostate 442818059 C61 Prostate s pecific antigen above reference range 832176147 R97.20 [id number] MD Fernanda Fon[address]. [place] [id number] 09/07/2022 11:10:34 09/09/2022 10:47:12 Malignant neoplasm of prostate 662976741 C61 [id number] [facility] [address] [place] [id number] 03/29/2023 11:17:56 04/06/2023 11:27:05 Malignant neoplasm of prostate 216967368 C61 [id number] [facility] [address] [place] [id number] 03/29/2023 11:17:56 04/08/2023 04:02:29 [id number] MD MICHAELA [facility] [address] [place] [id number] 10/04/2023 11:01:14 10/05/2023 12:16:36 Malignant neoplasm of prostate 365365383 C61 [id number] MD MICHAELA Fonseca[facility] [address] [place] [address] 04/11/2024 11:42:43 04/12/2024 14:19:01 Malignant neoplasm of prostate 013877922 C61 [id number] Valentin Jimenez MD [facility] [address] [place] [address] 12/05/2024 13:58:26 12/11/2024 16:53:52 Malignant neoplasm of prostate 992982052 C61 Health Concerns Section Related Observation LastModified by Organization Detai ls LastModified Time None Recorded Concern Status LastModified by Organization Details LastModified Time None Recorded Advance Directives Directive None Recorded Payers Insurance Date Sequence Insurance Name Policy Number Policy Stokes Covered Member ID Stokes Member ID Guarantor Name 12/11/2024 1 [place] - MEDICARE COST [id number] Javier Scott [id number] Javier Scott 12/05/2024 1 [place] [id number] Javier Scott [id number] Javier Scott 12/05/2024 1 [place] - [facility] Javier Scott [id number] Javier Guy Tyler Notes Date Note [...] DISCUSSED OPTIONS FOR E.D. Valentin Jimenez MD [address] [place] [address],[address], [address], [facility] 03/29/2023 13:12:08 10/04/2023 text/html 77 Y/O MALE, HX OF AN ELEVATED PSA . SMALL PROSTATE, NEG PROSTATE EXAM. PSA 11. PROSTATE 15 G. G6, G8(4,4) . NEG C.T. NEG BONE SCAN . HAD CRYO ON 12/23.doing well. good flow, mild freq. MOST RECENT PSA 0.11 ON 09/07/22 PSA TODAY 0.39. DISCUSSED OPTIONS FOR E.D. PSA TODAY 10/04/23: 0.35 Valentin Jimenez MD [address] [place] [address],[address], [place], [address], [facility] 10/04/2023 11:39:29 04/11/2024 text/html 77 Y/O [...] well no complaints. Valentin Jimenez MD [address], [place], [address], [facility] 04/11/2024 12:22:18 12/05/2024 text/html 77 Y/O [...] PSA TODAY 12/05/2024: 1.5 Valentin Jimenez MD [address] [place] [address],[address], [place], [address], [facility] 12/10/2024 13:21:59
--- NOTE | 2024-12-23 20:23 | ED.GENADULT ---
HPI - General Adult General Date Seen: 12/23/24 <Alexander Lockwood DO - Last Filed: 12/23/24 23:53> Chief complaint: Weakness <Alexander Lockwood DO - Last Filed: 12/23/24 23:53> Stated complaint: Leg sores, weakness, nausea <Alexander Lockwood DO - Last Filed: 12/23/24 23:53> Time Seen by Provider: 12/23/24 20:16 <Alexander Lockwood DO - Last Filed: 12/23/24 23:53> Source: patient <Alexander Carlton Lockwood DO - Last Filed: 12/23/24 23:53> Mode of arrival: ambulatory <Alexander Lockwood DO - Last Filed: 12/23/24 23:53> Limitations: no limitations <Alexander Lockwood DO - Last Filed: 12/23/24 23:53> History of Present Illness HPI narrative: Patient is a 79-year-old with improved history of seizures, syncope presenting to the emergency department for lightheadedness and weakness. He states he has been having symptoms of lightheadedness and nausea when he stands, leg weakness, chills. He states he has been having the symptoms now for several months but they got worse over the past week. He has been also been having neck and jaw pain he states the worst of the pain is at the base of his neck. Has been seeing a chiropractor for this and will make his neck feel little bit better. Has not had any fevers. Denies any chest pain or shortness of breath. Denies any abdominal pain. Has not spoken to leave his providers about this before. Does state he has some tingling sensation in his legs. No history of peripheral neuropathies. Denies any numbness of the legs. No other concerns noted. He states he lives home alone has been functioning appropriately at home. <Alexander Lockwood DO - Last Filed: 12/23/24 23:53> Related Data Home medications: Home Medications ?Medication ?Instructions ?Recorded ?Confirmed levetiracetam 750 mg tablet 750 mg PO BID 02/18/23 12/23/24 oxcarbazepine 300 mg tablet 300 mg PO 08/02/23 10/05/24 <Alexander Lockwood DO - Last Filed: 12/23/24 23:53> Allergies/adverse reactions: Allergies Allergy/AdvReac Type Severity Reaction Status Date / Time No Known Drug Allergies Allergy Verified 09/18/23 09:35 <Alexander Lockwood DO - Last Filed: 12/23/24 23:53> Review of Systems Status of ROS: Reports: 10 or more systems reviewed and unremarkable except as noted in History and below <Alexander Lockwood DO - Last Filed: 12/23/24 23:53> PFSH PFSH Surgical History: Surgical History Hx of appendectomy ?Z90.49 - Acquired absence of other specified parts of digestive tract (ICD-10) <Alexander Lockwood DO - Last Filed: 12/23/24 23:53> Social History: Social History Smoking Status: Never smoker Do you use any of these nicotine containing products: None Second hand tobacco smoke exposure: No Non-prescribed substance use: denies use <Alexander Lockwood DO - Last Filed: 12/23/24 23:53> Exam Narrative: Exam Narrative: Const: Well-nourished, Well-developed, in mild distress Eyes: PERRL, no conjunctival injection, and symmetrical lids HENT: Atraumatic external nose and ears. Moist mucous membranes. Neck: Symmetric, trachea midline, No thyromegaly. CVS: RRR, No murmurs or gallops. Peripheral pulses 2+ and equal in all extremities RESP: Unlabored respiratory effort. Clear to auscultation bilaterally. GI: Nontender/Nondistended, No rebound or guarding. MSK:Extremities w/o deformity, Normal Active ROM Skin: Warm, Dry. No rashes or lesions. Neuro: Normal Muscle tone, No focal neurological deficits. Psych: Awake, Alert, & Oriented x3. Appropriate mood and affect. <Alexander Lockwood DO - Last Filed: 12/23/24 23:53> Const: Vital Signs, click to edit/add: Vital Signs - 24 hr 12/23/24 20:07 12/23/24 20:20 12/23/24 20:26 Temperature 98.2 F Pulse Rate 66 Pulse Rate [Pulse Oximeter] 65 Pulse Rate [orthos tatic lying Right Pulse Oximeter] 67 Pulse Rate [orthos tatic sitting Righ t Pulse Oximeter] 66 Pulse Rate [orthos tatic standing Rig ht Pulse Oximeter] 73 Respiratory Rate 16 18 Blood Pressure 125/73 Blood Pressure [Ri ght Upper Arm] 132/84 Blood Pressure [or thostatic lying Le ft Arm] 121/67 Blood Pressure [or thostatic sitting Left Arm] 132/65 Blood Pressure [or thostatic standing Left Arm] 133/65 Pulse Oximetry 98 96 Oxygen Delivery Me thod Room Air 12/23/24 20:31 12/23/24 20:33 12/23/24 20:34 Temperature 98.2 F Pulse Rate 63 77 78 Pulse Rate [Pulse Oximeter] Pulse Rate [orthos tatic lying Right Pulse Oximeter] Pulse Rate [orthos tatic sitting Righ t Pulse Oximeter] Pulse Rate [orthos tatic standing Rig ht Pulse Oximeter] Respiratory Rate 18 18 18 Blood Pressure 121/67 132/65 133/65 Blood Pressure [Ri ght Upper Arm] Blood Pressure [or thostatic lying Le ft Arm] Blood Pressure [or thostatic sitting Left Arm] Blood Pressure [or thostatic standing Left Arm] Pulse Oximetry 94 91 93 Oxygen Delivery Me thod 12/23/24 20:47 12/23/24 21:15 12/23/24 21:17 Temperature Pulse Rate 63 75 67 Pulse Rate [Pulse Oximeter] Pulse Rate [orthos tatic lying Right Pulse Oximeter] Pulse Rate [orthos tatic sitting Righ t Pulse Oximeter] Pulse Rate [orthos tatic standing Rig ht Pulse Oximeter] Respiratory Rate 18 18 16 Blood Pressure 123/69 138/72 130/65 Blood Pressure [Ri ght Upper Arm] Blood Pressure [or thostatic lying Le ft Arm] Blood Pressure [or thostatic sitting Left Arm] Blood Pressure [or thostatic standing Left Arm] Pulse Oximetry 96 94 95 Oxygen Delivery Me thod 12/23/24 21:32 12/23/24 21:47 12/23/24 22:02 Temperature 98.2 F Pulse Rate 63 62 60 Pulse Rate [Pulse Oximeter] Pulse Rate [orthos tatic lying Right Pulse Oximeter] Pulse Rate [orthos tatic sitting Righ t Pulse Oximeter] Pulse Rate [orthos tatic standing Rig ht Pulse Oximeter] Respiratory Rate 16 16 16 Blood Pressure 133/70 127/64 129/68 Blood Pressure [Ri ght Upper Arm] Blood Pressure [or thostatic lying Le ft Arm] Blood Pressure [or thostatic sitting Left Arm] Blood Pressure [or thostatic standing Left Arm] Pulse Oximetry 93 94 93 Oxygen Delivery Me thod 12/23/24 22:17 12/23/24 22:32 12/23/24 22:44 Temperature 98.2 F Pulse Rate 60 65 60 Pulse Rate [Pulse Oximeter] Pulse Rate [orthos tatic lying Right Pulse Oximeter] Pulse Rate [orthos tatic sitting Righ t Pulse Oximeter] Pulse Rate [orthos tatic standing Rig ht Pulse Oximeter] Respiratory Rate 916 H 18 16 Blood Pressure 122/65 125/65 134/68 Blood Pressure [Ri ght Upper Arm] Blood Pressure [or thostatic lying Le ft Arm] Blood Pressure [or thostatic sitting Left Arm] Blood Pressure [or thostatic standing Left Arm] Pulse Oximetry 93 95 94 Oxygen Delivery Ga thod 12/23/24 23:02 12/23/24 23:32 12/24/24 00:02 Temperature Pulse Rate 61 55 L 63 Pulse Rate [Pulse Oximeter] Pulse Rate [orthos tatic lying Right Pulse Oximeter] Pulse Rate [orthos tatic sitting Righ t Pulse Oximeter] Pulse Rate [orthos tatic standing Rig ht Pulse Oximeter] Respiratory Rate 18 24 18 Blood Pressure 125/68 118/60 114/69 Blood Pressure [Ri ght Upper Arm] Blood Pressure [or thostatic lying Le ft Arm] Blood Pressure [or thostatic sitting Left Arm] Blood Pressure [or thostatic standing Left Arm] Pulse Oximetry 94 94 94 Oxygen Delivery Me thod 12/24/24 00:31 12/24/24 01:02 12/24/24 01:32 Temperature 98.2 F Pulse Rate 65 62 62 Pulse Rate [Pulse Oximeter] Pulse Rate [orthos tatic lying Right Pulse Oximeter] Pulse Rate [orthos tatic sitting Righ t Pulse Oximeter] Pulse Rate [orthos tatic standing Rig ht Pulse Oximeter] Respiratory Rate 16 16 15 Blood Pressure 117/63 126/70 127/63 Blood Pressure [Ri ght Upper Arm] Blood Pressure [or thostatic lying Le ft Arm] Blood Pressure [or thostatic sitting Left Arm] Blood Pressure [or thostatic standing Left Arm] Pulse Oximetry 92 94 93 Oxygen Delivery Me thod 12/24/24 01:54 12/24/24 02:06 Temperature 98.2 F 98.2 F Pulse Rate Pulse Rate [Pulse Oximeter] 61 61 Pulse Rate [orthos tatic lying Right Pulse Oximeter] Pulse Rate [orthos tatic sitting Righ t Pulse Oximeter] Pulse Rate [orthos tatic standing Rig ht Pulse Oximeter] Respiratory Rate 16 16 Blood Pressure Blood Pressure [Ri ght Upper Arm] 118/74 118/74 Blood Pressure [or thostatic lying Le ft Arm] Blood Pressure [or thostatic sitting Left Arm] Blood Pressure [or thostatic standing Left Arm] Pulse Oximetry 95 Oxygen Delivery Me thod Room Air <Alexander Lockwood, DO - Last Filed: 12/23/24 23:53> Vital Signs, click to edit/add: Vital Signs - 24 hr 12/23/24 20:07 12/23/24 20:20 12/23/24 20:26 Temperature 98.2 F Pulse Rate 66 Pulse Rate [Pulse Oximeter] 65 Pulse Rate [orthos tatic lying Right Pulse Oximeter] 67 Pulse Rate [orthos tatic sitting Righ t Pulse Oximeter] 66 Pulse Rate [orthos tatic standing Rig ht Pulse Oximeter] 73 Respiratory Rate 16 18 Blood Pressure 125/73 Blood Pressure [Ri ght Upper Arm] 132/84 Blood Pressure [or thostatic lying Le ft Arm] 121/67 Blood Pressure [or thostatic sitting Left Arm] 132/65 Blood Pressure [or thostatic standing Left Arm] 133/65 Pulse Oximetry 98 96 Oxygen Delivery Me thod Room Air 12/23/24 20:31 12/23/24 20:33 12/23/24 20:34 Temperature 98.2 F Pulse Rate 63 77 78 Pulse Rate [Pulse Oximeter] Pulse Rate [orthos tatic lying Right Pulse Oximeter] Pulse Rate [orthos tatic sitting Righ t Pulse Oximeter] Pulse Rate [orthos tatic standing Rig ht Pulse Oximeter] Respiratory Rate 18 18 18 Blood Pressure 121/67 132/65 133/65 Blood Pressure [Ri ght Upper Arm] Blood Pressure [or thostatic lying Le ft Arm] Blood Pressure [or thostatic sitting Left Arm] Blood Pressure [or thostatic standing Left Arm] Pulse Oximetry 94 91 93 Oxygen Delivery Me thod 12/23/24 20:47 12/23/24 21:15 12/23/24 21:17 Temperature Pulse Rate 63 75 67 Pulse Rate [Pulse Oximeter] Pulse Rate [orthos tatic lying Right Pulse Oximeter] Pulse Rate [orthos tatic sitting Righ t Pulse Oximeter] Pulse Rate [orthos tatic standing Rig ht Pulse Oximeter] Respiratory Rate 18 18 16 Blood Pressure 123/69 138/72 130/65 Blood Pressure [Ri ght Upper Arm] Blood Pressure [or thostatic lying Le ft Arm] Blood Pressure [or thostatic sitting Left Arm] Blood Pressure [or thostatic standing Left Arm] Pulse Oximetry 96 94 95 Oxygen Delivery Me thod 12/23/24 21:32 12/23/24 21:47 12/23/24 22:02 Temperature 98.2 F Pulse Rate 63 62 60 Pulse Rate [Pulse Oximeter] Pulse Rate [orthos tatic lying Right Pulse Oximeter] Pulse Rate [orthos tatic sitting Righ t Pulse Oximeter] Pulse Rate [orthos tatic standing Rig ht Pulse Oximeter] Respiratory Rate 16 16 16 Blood Pressure 133/70 127/64 129/68 Blood Pressure [Ri ght Upper Arm] Blood Pressure [or thostatic lying Le ft Arm] Blood Pressure [or thostatic sitting Left Arm] Blood Pressure [or thostatic standing Left Arm] Pulse Oximetry 93 94 93 Oxygen Delivery Me thod 12/23/24 22:17 12/23/24 22:32 12/23/24 22:44 Temperature 98.2 F Pulse Rate 60 65 60 Pulse Rate [Pulse Oximeter] Pulse Rate [orthos tatic lying Right Pulse Oximeter] Pulse Rate [orthos tatic sitting Righ t Pulse Oximeter] Pulse Rate [orthos tatic standing Rig ht Pulse Oximeter] Respiratory Rate 916 H 18 16 Blood Pressure 122/65 125/65 134/68 Blood Pressure [Ri ght Upper Arm] Blood Pressure [or thostatic lying Le ft Arm] Blood Pressure [or thostatic sitting Left Arm] Blood Pressure [or thostatic standing Left Arm] Pulse Oximetry 93 95 94 Oxygen Delivery Me thod 12/23/24 23:02 12/23/24 23:32 12/24/24 00:02 Temperature Pulse Rate 61 55 L 63 Pulse Rate [Pulse Oximeter] Pulse Rate [orthos tatic lying Right Pulse Oximeter] Pulse Rate [orthos tatic sitting Righ t Pulse Oximeter] Pulse Rate [orthos tatic standing Rig ht Pulse Oximeter] Respiratory Rate 18 24 18 Blood Pressure 125/68 118/60 114/69 Blood Pressure [Ri ght Upper Arm] Blood Pressure [or thostatic lying Le ft Arm] Blood Pressure [or thostatic sitting Left Arm] Blood Pressure [or thostatic standing Left Arm] Pulse Oximetry 94 94 94 Oxygen Delivery Me thod 12/24/24 00:31 12/24/24 01:02 12/24/24 01:32 Temperature 98.2 F Pulse Rate 65 62 62 Pulse Rate [Pulse Oximeter] Pulse Rate [orthos tatic lying Right Pulse Oximeter] Pulse Rate [orthos tatic sitting Righ t Pulse Oximeter] Pulse Rate [orthos tatic standing Rig ht Pulse Oximeter] Respiratory Rate 16 16 15 Blood Pressure 117/63 126/70 127/63 Blood Pressure [Ri ght Upper Arm] Blood Pressure [or thostatic lying Le ft Arm] Blood Pressure [or thostatic sitting Left Arm] Blood Pressure [or thostatic standing Left Arm] Pulse Oximetry 92 94 93 Oxygen Delivery Me thod 12/24/24 01:54 12/24/24 02:06 Temperature 98.2 F 98.2 F Pulse Rate Pulse Rate [Pulse Oximeter] 61 61 Pulse Rate [orthos tatic lying Right Pulse Oximeter] Pulse Rate [orthos tatic sitting Righ t Pulse Oximeter] Pulse Rate [orthos tatic standing Rig ht Pulse Oximeter] Respiratory Rate 16 16 Blood Pressure Blood Pressure [Ri ght Upper Arm] 118/74 118/74 Blood Pressure [or thostatic lying Le ft Arm] Blood Pressure [or thostatic sitting Left Arm] Blood Pressure [or thostatic standing Left Arm] Pulse Oximetry 95 Oxygen Delivery Me thod Room Air <Sue Mittal MD - Last Filed: 12/24/24 03:28> Course Course ED Course: dr. mittal- I assumed care for patient at shift change. We were able to secure placement in an ICU bed at [facility]. Previous physician had consult and with ICU team from [place] and they had recommended 2 short bursts of 3% saline. Patient was transferred prior to completion of these medications and recheck of sodium. Neurology consult was recommended by consulting team as well. Vitals remained stable with no further neurological decline while under our care. Transferred by [facility] ground ambulance, sign-out given to tele hospitalist with all information faxed as well. l <Sue Mittal MD - Last Filed: 12/24/24 03:28> Vital Signs Vital signs: Initial Vital Signs Temperature 98.2 F 12/23/24 20:07 Temperature Source Temporal Artery Scan 12/23/24 20:07 Pulse Rate 65 12/23/24 20:07 Respiratory Rate 16 12/23/24 20:07 Blood Pressure 132/84 12/23/24 20:07 Blood Pressure Mean 100 12/23/24 20:07 Blood Pressure Position Sitting 12/23/24 20:07 Pulse Oximetry 98 12/23/24 20:07 Oxygen Delivery Method Room Air 12/23/24 20:07 Vital Signs Temperature 98.2 F 12/23/24 20:07 Pulse Rate 65 12/23/24 20:07 Respiratory Rate 16 12/23/24 20:07 Blood Pressure 132/84 12/23/24 20:07 Pulse Oximetry 98 12/23/24 20:07 Oxygen Delivery Method Room Air 12/23/24 20:07 Temperature 98.2 F 12/24/24 02:06 Pulse Rate 61 12/24/24 02:06 Respiratory Rate 16 12/24/24 02:06 Blood Pressure 118/74 12/24/24 02:06 Pulse Oximetry 95 12/24/24 01:54 Oxygen Delivery Method Room Air 12/24/24 01:54 <Alexander Lockwood DO - Last Filed: 12/23/24 23:53> Initial Vital Signs Temperature 98.2 F 12/23/24 20:07 Temperature Source Temporal Artery Scan 12/23/24 20:07 Pulse Rate 65 12/23/24 20:07 Respiratory Rate 16 12/23/24 20:07 Blood Pressure 132/84 12/23/24 20:07 Blood Pressure Mean 100 12/23/24 20:07 Blood Pressure Position Sitting 12/23/24 20:07 Pulse Oximetry 98 12/23/24 20:07 Oxygen Delivery Method Room Air 12/23/24 20:07 Vital Signs Temperature 98.2 F 12/23/24 20:07 Pulse Rate 65 12/23/24 20:07 Respiratory Rate 16 12/23/24 20:07 Blood Pressure 132/84 12/23/24 20:07 Pulse Oximetry 98 12/23/24 20:07 Oxygen Delivery Method Room Air 12/23/24 20:07 Temperature 98.2 F 12/24/24 02:06 Pulse Rate 61 12/24/24 02:06 Respiratory Rate 16 12/24/24 02:06 Blood Pressure 118/74 12/24/24 02:06 Pulse Oximetry 95 12/24/24 01:54 Oxygen Delivery Method Room Air 12/24/24 01:54 <Sue Mittal MD - Last Filed: 12/24/24 03:28> Medications Administered Medications: Discontinued Medications Generic Name Dose Route Start Last Admin Trade Name Freq PRN Reason Stop Dose Admin Sodium Chloride 1,000 mls @ 1,000 mls/hr 12/23/24 20:30 12/23/24 21:24 0.9 % Sodium Chloride 1000 Ml IV 12/23/24 21:29 Infused .Q1H VARGAS Infusion Sodium Chloride 1,000 mls @ 100 mls/hr 12/23/24 22:48 12/24/24 00:01 0.9 % Sodium Chloride 1000 Ml IV 0 mls/hr .Q10H VARGAS Infusion Sodium Chloride 30 mls @ 30 mls/hr 12/23/24 23:37 12/24/24 01:41 3 % Sodium Chloride 500 Ml IV 12/24/24 00:36 Infused ONCE ONE Infusion Sodium Chloride 30 mls @ 30 mls/hr 12/23/24 23:39 12/24/24 01:42 3 % Sodium Chloride 500 Ml IV 12/24/24 00:38 Infused ONCE ONE Infusion Levetiracetam/Sodium Chloride 1,000 mg 12/23/24 22:15 12/23/24 22:35 Levetiracetam 1,000 Mg/100 Ml Infusion IVPB 12/23/24 22:16 1,000 mg ONCE ONE Administration <Alexander Lockwood DO - Last Filed: 12/23/24 23:53> Discontinued Medications Generic Name Dose Route Start Last Admin Trade Name Freq PRN Reason Stop Dose Admin Sodium Chloride 1,000 mls @ 1,000 mls/hr 12/23/24 20:30 12/23/24 21:24 0.9 % Sodium Chloride 1000 Ml IV 12/23/24 21:29 Infused .Q1H VARGAS Infusion Sodium Chloride 1,000 mls @ 100 mls/hr 12/23/24 22:48 12/24/24 00:01 0.9 % Sodium Chloride 1000 Ml IV 0 mls/hr .Q10H VARGAS Infusion Sodium Chloride 30 mls @ 30 mls/hr 12/23/24 23:37 12/24/24 01:41 3 % Sodium Chloride 500 Ml IV 12/24/24 00:36 Infused ONCE ONE Infusion Sodium Chloride 30 mls @ 30 mls/hr 12/23/24 23:39 12/24/24 01:42 3 % Sodium Chloride 500 Ml IV 12/24/24 00:38 Infused ONCE ONE Infusion Levetiracetam/Sodium Chloride 1,000 mg 12/23/24 22:15 12/23/24 22:35 Levetiracetam 1,000 Mg/100 Ml Infusion IVPB 12/23/24 22:16 1,000 mg ONCE ONE Administration <Sue Mittal MD - Last Filed: 12/24/24 03:28> Medical Decision Making MDM Narrative Medical decision making narrative: Patient is a 79-year-old male presenting to the emergency department for lightheadedness, headache, leg tingling sensation. He is asymptomatically in in bed other than the headache but he states is at the base of his skull. Has been seeing a chiropractor for this according to his son-in-law. With the lightheadedness I will do a CTA of the head and neck to make sure there are no dissections considering the chiropractic work. Will do some orthostatic blood pressures. Will check a chest x-ray were signs of pneumonia or pneumothorax. EKG and troponin to look for signs of ACS. He is already having symptoms consistent with a PE at this time in my opinion. He has not had any true syncopal episodes is not having any chest pain or shortness of breath associated with the symptoms and they are only there when he stands up. Patient's lab work shows a sodium of 120. Versus lab work shows no concerning findings. EKG shows no concerning findings. Imaging shows no acute concerning abnormalities as reviewed by myself and the radiologist. He seemed to get more confused and his son in law thought he noticed some jaw twitching. Previously the patient will have this jaw twitching confusion somewhat similar when he was dealing with his focal seizures. He sees [facility] for this. Patient states he took his medication today but is confused so is unsure if this is true. With that history I did speak to the on-call neurologist at [place], Dr. Cardozo who recommends a loading dose of Keppra and transferred to [place] [facility]. I spoke to Dr. Bach of the [place] [facility] hospitalist group who accepted him for transfer but wants is to recheck a sodium 1st to see if the patient needs to be an ICU versus the floor. Also recommend a mounting machine operator consult which was done. I spoke to the on-call mounting machine operator for [facility] and he recommends doing serum and urine osmolalities, he is aware these are send outs, along with a urine sodium and creatinine. Will re-evaluate again once sodium returns. Sodium returned at 118. I spoke to the [facility] industrial spray painter and he recommends 60 mL of 3% saline over 2 hours. This will be ordered. States the patient does not meet ICU criteria at this time. [facility] then informed me that they do not have any floor beds available and he will be placed on the wait list. We will start working on transferring to other facilities. <Alexander Lockwood, DO - Last Filed: 12/23/24 23:53> Lab Data Labs: Lab Results 12/23/24 12/23/24 12/23/24 Range/Units 20:10 20:11 20:20 WBC 10.62 (4.50-11.00) K/uL RBC 4.52 (4.30-5.90) m/uL Hgb 14.4 (13.5-17.5) gm/dL Hct 40.3 (37.0-53.0) % MCV 89 (80-100) fL MCH 32 (26-34) pg MCHC 36 (32-36) gm/dL RDW Coeff of Jorge 11.7 (11.5-15.5) % Plt Count 215 (140-440) K/uL Neut % (Auto) 84.4 H (42.0-72.0) % Lymph % (Auto) 8.5 L (20-44) % [place] % (Auto) 5.6 (0.0-11.0) % Eos % (Auto) 0.1 (0.0-7.0) % Baso % (Auto) 0.1 (0.0-3.0) % Neut # (Auto) 9.00 H (1.7-7.0) K/uL Lymph # (Auto) 0.90 (0.90-2.90) K/uL [place] # (Auto) 0.60 (0.00-0.90) K/UL Eos # (Auto) 0.01 (0.00-0.50) K/uL Baso # (Auto) 0.01 (0.00-0.30) K/uL Abs Immat Gran (auto) 0.14 (0.00-0.30) K/uL Imm/Tot Granulo (auto) 1.3 % Sodium (135-149) mmol/L Potassium (3.6-5.1) mmol/L Chloride (96-114) mmol/L Carbon Dioxide (20-32) mmol/L Anion Gap (7-15) mEq/L BUN (7-30) mg/dL Creatinine (0.5-1.5) mg/dL Estimated Creat Clear Estimated GFR ml/min Glucose (60-115) mg/dL Calcium (8.4-10.6) mg/dL Magnesium (1.5-2.6) mg/dL Troponin I (0.01-0.04) ng/mL Urine Color (Yellow) Urine Appearance (Clear) Urine pH (5.0-8.5) Ur Specific [place] (1.000-1.030) Urine Protein (Negative) Urine Glucose (UA) (Negative) Urine Ketones (Negative) Urine Blood (Negative) Urine Nitrite (Negative) Urine Bilirubin (Negative) Urine Urobilinogen (0.2-1.0) Ur Leukocyte Esterase (Negative) Urine RBC (0-2) Urine WBC (0-5) Ur Squamous Epith Cells (None-Few) Urine Bacteria (None) Ur Random Creatinine mg/dL Ur Random Sodium SARS-CoV-2 (PCR) Negative SARS-CoV-2 (Negative) Influenza Type A (PCR) Negative PCR FLU A (Negative) Influenza Type B (PCR) Negative PCR FLU B (Negative) RSV (PCR) Negative PCR RSV (Negative) POC Creatinine 0.9 (0.6-1.3) mg/dl 12/23/24 12/23/24 12/23/24 Range/Units 20:27 20:50 21:00 WBC (4.50-11.00) K/uL RBC (4.30-5.90) m/uL Hgb (13.5-17.5) gm/dL Hct (37.0-53.0) % MCV (80-100) fL MCH (26-34) pg MCHC (32-36) gm/dL RDW Coeff of Jorge (11.5-15.5) % Plt Count (140-440) K/uL Neut % (Auto) (42.0-72.0) % Lymph % (Auto) (20-44) % [place] % (Auto) (0.0-11.0) % Eos % (Auto) (0.0-7.0) % Baso % (Auto) (0.0-3.0) % Neut # (Auto) (1.7-7.0) K/uL Lymph # (Auto) (0.90-2.90) K/uL [place] # (Auto) (0.00-0.90) K/UL Eos # (Auto) (0.00-0.50) K/uL Baso # (Auto) (0.00-0.30) K/uL Abs Immat Gran (auto) (0.00-0.30) K/uL Imm/Tot Granulo (auto) % Sodium 120 L* (135-149) mmol/L Potassium 3.8 (3.6-5.1) mmol/L Chloride 88 L (96-114) mmol/L Carbon Dioxide 22 (20-32) mmol/L Anion Gap 10 (7-15) mEq/L BUN 14 (7-30) mg/dL Creatinine 0.8 (0.5-1.5) mg/dL Estimated Creat Clear 66.40 Estimated GFR 91 ml/min Glucose 149 H (60-115) mg/dL Calcium 8.7 (8.4-10.6) mg/dL Magnesium 1.4 L (1.5-2.6) mg/dL Troponin I < 0.01 (0.01-0.04) ng/mL Urine Color Yellow (Yellow) Urine Appearance Clear (Clear) Urine pH 6.5 (5.0-8.5) Ur Specific [place] 1.025 (1.000-1.030) Urine Protein 1+ A (Negative) Urine Glucose (UA) Negative (Negative) Urine Ketones 2+ A (Negative) Urine Blood Trace-intact A (Negative) Urine Nitrite Negative (Negative) Urine Bilirubin Negative (Negative) Urine Urobilinogen 0.2 (0.2-1.0) Ur Leukocyte Esterase Negative (Negative) Urine RBC 0-2 (0-2) Urine WBC 0-2 (0-5) Ur Squamous Epith Cells Few (None-Few) Urine Bacteria None (None) Ur Random Creatinine 200 mg/dL Ur Random Sodium 36 SARS-CoV-2 (PCR) (Negative) Influenza Type A (PCR) (Negative) Influenza Type B (PCR) (Negative) RSV (PCR) (Negative) POC Creatinine (0.6-1.3) mg/dl 12/23/24 Range/Units 22:45 WBC (4.50-11.00) K/uL RBC (4.30-5.90) m/uL Hgb (13.5-17.5) gm/dL Hct (37.0-53.0) % MCV (80-100) fL MCH (26-34) pg MCHC (32-36) gm/dL RDW Coeff of Jorge (11.5-15.5) % Plt Count (140-440) K/uL Neut % (Auto) (42.0-72.0) % Lymph % (Auto) (20-44) % [place] % (Auto) (0.0-11.0) % Eos % (Auto) (0.0-7.0) % Baso % (Auto) (0.0-3.0) % Neut # (Auto) (1.7-7.0) K/uL Lymph # (Auto) (0.90-2.90) K/uL [place] # (Auto) (0.00-0.90) K/UL Eos # (Auto) (0.00-0.50) K/uL Baso # (Auto) (0.00-0.30) K/uL Abs Immat Gran (auto) (0.00-0.30) K/uL Imm/Tot Granulo (auto) % Sodium 118 L* (135-149) mmol/L Potassium (3.6-5.1) mmol/L Chloride (96-114) mmol/L Carbon Dioxide (20-32) mmol/L Anion Gap (7-15) mEq/L BUN (7-30) mg/dL Creatinine (0.5-1.5) mg/dL Estimated Creat Clear Estimated GFR ml/min Glucose (60-115) mg/dL Calcium (8.4-10.6) mg/dL Magnesium (1.5-2.6) mg/dL Troponin I (0.01-0.04) ng/mL Urine Color (Yellow) Urine Appearance (Clear) Urine pH (5.0-8.5) Ur Specific [place] (1.000-1.030) Urine Protein (Negative) Urine Glucose (UA) (Negative) Urine Ketones (Negative) Urine Blood (Negative) Urine Nitrite (Negative) Urine Bilirubin (Negative) Urine Urobilinogen (0.2-1.0) Ur Leukocyte Esterase (Negative) Urine RBC (0-2) Urine WBC (0-5) Ur Squamous Epith Cells (None-Few) Urine Bacteria (None) Ur Random Creatinine mg/dL Ur Random Sodium SARS-CoV-2 (PCR) (Negative) Influenza Type A (PCR) (Negative) Influenza Type B (PCR) (Negative) RSV (PCR) (Negative) POC Creatinine (0.6-1.3) mg/dl <Alexander Lockwood, DO - Last Filed: 12/23/24 23:53> Lab Results 12/23/24 12/23/24 12/23/24 Range/Units 20:10 20:11 20:20 WBC 10.62 (4.50-11.00) K/uL RBC 4.52 (4.30-5.90) m/uL Hgb 14.4 (13.5-17.5) gm/dL Hct 40.3 (37.0-53.0) % MCV 89 (80-100) fL MCH 32 (26-34) pg MCHC 36 (32-36) gm/dL RDW Coeff of Jorge 11.7 (11.5-15.5) % Plt Count 215 (140-440) K/uL Neut % (Auto) 84.4 H (42.0-72.0) % Lymph % (Auto) 8.5 L (20-44) % [place] % (Auto) 5.6 (0.0-11.0) % Eos % (Auto) 0.1 (0.0-7.0) % Baso % (Auto) 0.1 (0.0-3.0) % Neut # (Auto) 9.00 H (1.7-7.0) K/uL Lymph # (Auto) 0.90 (0.90-2.90) K/uL [place] # (Auto) 0.60 (0.00-0.90) K/UL Eos # (Auto) 0.01 (0.00-0.50) K/uL Baso # (Auto) 0.01 (0.00-0.30) K/uL Abs Immat Gran (auto) 0.14 (0.00-0.30) K/uL Imm/Tot Granulo (auto) 1.3 % Sodium (135-149) mmol/L Potassium (3.6-5.1) mmol/L Chloride (96-114) mmol/L Carbon Dioxide (20-32) mmol/L Anion Gap (7-15) mEq/L BUN (7-30) mg/dL Creatinine (0.5-1.5) mg/dL Estimated Creat Clear Estimated GFR ml/min Glucose (60-115) mg/dL Calcium (8.4-10.6) mg/dL Magnesium (1.5-2.6) mg/dL Troponin I (0.01-0.04) ng/mL Urine Color (Yellow) Urine Appearance (Clear) Urine pH (5.0-8.5) Ur Specific [place] (1.000-1.030) Urine Protein (Negative) Urine Glucose (UA) (Negative) Urine Ketones (Negative) Urine Blood (Negative) Urine Nitrite (Negative) Urine Bilirubin (Negative) Urine Urobilinogen (0.2-1.0) Ur Leukocyte Esterase (Negative) Urine RBC (0-2) Urine WBC (0-5) Ur Squamous Epith Cells (None-Few) Urine Bacteria (None) Ur Random Creatinine mg/dL Ur Random Sodium SARS-CoV-2 (PCR) Negative SARS-CoV-2 (Negative) Influenza Type A (PCR) Negative PCR FLU A (Negative) Influenza Type B (PCR) Negative PCR FLU B (Negative) RSV (PCR) Negative PCR RSV (Negative) POC Creatinine 0.9 (0.6-1.3) mg/dl 12/23/24 12/23/2425 Range/Units 20:27 20:50 21:00 WBC (4.50-11.00) K/uL RBC (4.30-5.90) m/uL Hgb (13.5-17.5) gm/dL Hct (37.0-53.0) % MCV (80-100) fL MCH (26-34) pg MCHC (32-36) gm/dL RDW Coeff of Jorge (11.5-15.5) % Plt Count (140-440) K/uL Neut % (Auto) (42.0-72.0) % Lymph % (Auto) (20-44) % [place] % (Auto) (0.0-11.0) % Eos % (Auto) (0.0-7.0) % Baso % (Auto) (0.0-3.0) % Neut # (Auto) (1.7-7.0) K/uL Lymph # (Auto) (0.90-2.90) K/uL [place] # (Auto) (0.00-0.90) K/UL Eos # (Auto) (0.00-0.50) K/uL Baso # (Auto) (0.00-0.30) K/uL Abs Immat Gran (auto) (0.00-0.30) K/uL Imm/Tot Granulo (auto) % Sodium 120 L* (135-149) mmol/L Potassium 3.8 (3.6-5.1) mmol/L Chloride 88 L (96-114) mmol/L Carbon Dioxide 22 (20-32) mmol/L Anion Gap 10 (7-15) mEq/L BUN 14 (7-30) mg/dL Creatinine 0.8 (0.5-1.5) mg/dL Estimated Creat Clear 66.40 Estimated GFR 91 ml/min Glucose 149 H (60-115) mg/dL Calcium 8.7 (8.4-10.6) mg/dL Magnesium 1.4 L (1.5-2.6) mg/dL Troponin I < 0.01 (0.01-0.04) ng/mL Urine Color Yellow (Yellow) Urine Appearance Clear (Clear) Urine pH 6.5 (5.0-8.5) Ur Specific [place] 1.025 (1.000-1.030) Urine Protein 1+ A (Negative) Urine Glucose (UA) Negative (Negative) Urine Ketones 2+ A (Negative) Urine Blood Trace-intact A (Negative) Urine Nitrite Negative (Negative) Urine Bilirubin Negative (Negative) Urine Urobilinogen 0.2 (0.2-1.0) Ur Leukocyte Esterase Negative (Negative) Urine RBC 0-2 (0-2) Urine WBC 0-2 (0-5) Ur Squamous Epith Cells Few (None-Few) Urine Bacteria None (None) Ur Random Creatinine 200 mg/dL Ur Random Sodium 36 SARS-CoV-2 (PCR) (Negative) Influenza Type A (PCR) (Negative) Influenza Type B (PCR) (Negative) RSV (PCR) (Negative) POC Creatinine (0.6-1.3) mg/dl 12/23/24 Range/Units 22:45 WBC (4.50-11.00) K/uL RBC (4.30-5.90) m/uL Hgb (13.5-17.5) gm/dL Hct (37.0-53.0) % MCV (80-100) fL MCH (26-34) pg MCHC (32-36) gm/dL RDW Coeff of Jorge (11.5-15.5) % Plt Count (140-440) K/uL Neut % (Auto) (42.0-72.0) % Lymph % (Auto) (20-44) % [place] % (Auto) (0.0-11.0) % Eos % (Auto) (0.0-7.0) % Baso % (Auto) (0.0-3.0) % Neut # (Auto) (1.7-7.0) K/uL Lymph # (Auto) (0.90-2.90) K/uL [place] # (Auto) (0.00-0.90) K/UL Eos # (Auto) (0.00-0.50) K/uL Baso # (Auto) (0.00-0.30) K/uL Abs Immat Gran (auto) (0.00-0.30) K/uL Imm/Tot Granulo (auto) % Sodium 118 L* (135-149) mmol/L Potassium (3.6-5.1) mmol/L Chloride (96-114) mmol/L Carbon Dioxide (20-32) mmol/L Anion Gap (7-15) mEq/L BUN (7-30) mg/dL Creatinine (0.5-1.5) mg/dL Estimated Creat Clear Estimated GFR ml/min Glucose (60-115) mg/dL Calcium (8.4-10.6) mg/dL Magnesium (1.5-2.6) mg/dL Troponin I (0.01-0.04) ng/mL Urine Color (Yellow) Urine Appearance (Clear) Urine pH (5.0-8.5) Ur Specific [place] (1.000-1.030) Urine Protein (Negative) Urine Glucose (UA) (Negative) Urine Ketones (Negative) Urine Blood (Negative) Urine Nitrite (Negative) Urine Bilirubin (Negative) Urine Urobilinogen (0.2-1.0) Ur Leukocyte Esterase (Negative) Urine RBC (0-2) Urine WBC (0-5) Ur Squamous Epith Cells (None-Few) Urine Bacteria (None) Ur Random Creatinine mg/dL Ur Random Sodium SARS-CoV-2 (PCR) (Negative) Influenza Type A (PCR) (Negative) Influenza Type B (PCR) (Negative) RSV (PCR) (Negative) POC Creatinine (0.6-1.3) mg/dl <Sue Mittal MD - Last Filed: 12/24/24 03:28> Imaging Data Chest x-ray: Attestation: I have reviewed the pertinent imaging results. <Alexander Lockwood DO - Last Filed: 12/23/24 23:53> Radiologist's impression: No acute cardiopulmonary process detected. Age-indeterminate but likely chronic compression fracture along the thoracolumbar junction. Dictated by Eduardo Linares MD @ 12/23/2024 9:18:23 PM <Alexander Lockwood DO - Last Filed: 12/23/24 23:53> CT scan head: Attestation: I have reviewed the pertinent imaging results. <Alexander Lockwood DO - Last Filed: 12/23/24 23:53> Radiologist's impression: No acute abnormality appreciated. Please note that all CT scans at this facility use dose modulation, iterative reconstruction, and/or weight-based dosing when appropriate to reduce radiation dose to as low as reasonably achievable. Dictated by Eduardo Linares MD @ 12/23/2024 9:33:04 PM <Alexander Lockwood DO - Last Filed: 12/23/24 23:53> CTA head and neck: Attestation: I have reviewed the pertinent imaging results. <Alexander Lockwood DO - Last Filed: 12/23/24 23:53> Radiologist's impression: Preliminary report, full report to follow. Impression: CTA head: No acute abnormality appreciated. CTA neck: No acute abnormality appreciated. Dictated by Eduardo Linares MD @ 12/23/2024 9:36:34 PM <Alexander Lockwood, DO - Last Filed: 12/23/24 23:53> ECG Data Attestation: I personally reviewed and interpreted this ECG as follows: <Alexander Lockwood, DO - Last Filed: 12/23/24 23:53> Prior ECG tracings: not available for review <Alexander Lockwood, DO - Last Filed: 12/23/24 23:53> Interpretation: Normal sinus rhythm with a rate of 67 beats per minute. Does have a first-degree AV block. Left bundle branch block. Normal QRS. No ST or T-wave abnormalities. <Alexander Lockwood, DO - Last Filed: 12/23/24 23:53> Discharge Plan Discharge Clinical Impression: Acute hyponatremia, Focal seizure <Alexander Lockwood, DO - Last Filed: 12/23/24 23:53> Patient Disposition: Xfer Other <Alexander Lockwood, DO - Last Filed: 12/23/24 23:53> Condition: Guarded <Alexander Lockwood, DO - Last Filed: 12/23/24 23:53> Prescriptions: No Action levetiracetam 750 mg tablet 750 mg PO BID oxcarbazepine 300 mg tablet 300 mg PO Rx Instructions: TAKE 1 1/2 TABLETS BY MOUTH IN THE MORNING AND 1 TAB IN THE EVENING <Alexander Lockwood DO - Last Filed: 12/23/24 23:53> Stand Alone Forms: MyHealth Info Instructions <Alexander Lockwood DO - Last Filed: 12/23/24 23:53>
--- NOTE | 2024-12-23 20:26 | CRLHL7_ITS ---
For Patients: As a result of the Century Cures Act, medical imaging exams and procedure reports are released immediately into your electronic medical record. You may view this report before your referring provider. If you have questions, please contact your health care provider. INDICATION: Acute stroke, lightheadedness. TECHNIQUE: CTA head with contrast bolus tracking, 3D angiographic rendering using maximum intensity projection (MIP) and images permanently archived. FINDINGS: There is normal opacification of the intracranial vasculature. There is no large vessel occlusion. No aneurysm is identified. IMPRESSION: No acute intracranial abnormality at CTA. Please note that all CT scans at this facility use dose modulation, iterative reconstruction, and/or weight-based dosing when appropriate to reduce radiation dose to as low as reasonably achievable. Dictated by Ambrosio Rice MD @ 12/24/2024 12:13:02 PM (Electronically Signed)
--- NOTE | 2024-12-23 20:26 | CRLHL7_ITS ---
For Patients: As a result of the Century Cures Act, medical imaging exams and procedure reports are released immediately into your electronic medical record. You may view this report before your referring provider. If you have questions, please contact your health care provider. Indication: Lightheadedness Technique: Noncontrast CT through the head with multiplanar reformats Comparison: CT head performed 10/19/2020 Findings: Brain: No acute hemorrhage. No acute infarct. No significant mass effect or midline shift. No gross evidence of a mass lesion or cerebral edema. Mild chronic microvascular ischemic disease and global parenchymal volume loss again demonstrated. Ventricles: No acute abnormality appreciated. Orbits, sinuses, mastoids: No acute abnormality appreciated. Calvarium and soft tissues: No acute abnormality appreciated. Impression: No acute abnormality appreciated. Please note that all CT scans at this facility use dose modulation, iterative reconstruction, and/or weight-based dosing when appropriate to reduce radiation dose to as low as reasonably achievable. Dictated by Eduardo Linares MD @ 12/23/2024 9:33:04 PM (Electronically Signed)
--- NOTE | 2024-12-23 20:26 | CRLHL7_ITS ---
For Patients: As a result of the Century Cures Act, medical imaging exams and procedure reports are released immediately into your electronic medical record. You may view this report before your referring provider. If you have questions, please contact your health care provider. INDICATION: Acute stroke, lightheadedness. TECHNIQUE: CTA neck with contrast bolus tracking, 3D angiographic rendering using maximum intensity projection (MIP) and images permanently archived. FINDINGS: There is no significant carotid artery stenosis or dissection. There is no significant vertebral artery stenosis or dissection. The soft tissues of the neck are within normal limits. Degenerative changes are noted in the cervical spine. IMPRESSION: No significant carotid or vertebral artery stenosis or dissection. Please note that all CT scans at this facility use dose modulation, iterative reconstruction, and/or weight-based dosing when appropriate to reduce radiation dose to as low as reasonably achievable. Dictated by Ambrosio Rice MD @ 12/24/2024 12:14:02 PM (Electronically Signed)
--- NOTE | 2024-12-23 20:27 | CRLHL7_ITS ---
For Patients: As a result of the Cures Act, medical imaging exams and procedure reports are released immediately into your electronic medical record. You may view this report before your referring provider. If you have questions, please contact your health care provider. Indication: Lightheadedness Technique: Two views of the chest Comparison: None Findings/Impression: No acute cardiopulmonary process detected. Age-indeterminate but likely chronic compression fracture along the thoracolumbar junction. Dictated by Eduardo Linares MD @ 12/23/2024 9:18:23 PM (Electronically Signed)
[2024-12-23] MEDS: 0.9 % SODIUM CHLORIDE 1000 ml 1,000 ML IV (20:31)
[2024-12-23 20:32] LABS: Creatinine, Point-of-Care* 0.9 mg/dl (0.6-1.3)
[2024-12-23 21:04] LABS: Chloride* 88 mmol/L (96-114)
[2024-12-23 21:05] LABS: Potassium* 3.8 mmol/L (3.6-5.1)
[2024-12-23 21:08] LABS: Anion Gap 10 mEq/L (7-15); Blood Urea Nitrogen* 14 mg/dL (7-30); Calcium* 8.7 mg/dL (8.4-10.6); Carbon Dioxide* 22 mmol/L (20-32); Creatinine* 0.8 mg/dL (0.5-1.5); Estimated Glomerular Filt Rate 91 ml/min; Glucose* 149 mg/dL (60-115); Magnesium* 1.4 mg/dL (1.5-2.6)
[2024-12-23 21:11] LABS: Appearance Urine Clear (Clear); Bilirubin Urine Negative (Negative); Blood Urine Trace-intact (Negative); Color Urine Yellow (Yellow); Glucose Urine Negative (Negative); Ketones Urine 2+ (Negative); Leukocyte Esterase Urine Negative (Negative); Nitrite Urine Negative (Negative); Protein Urine 1+ (Negative); Specific Gravity Urine 1.025 (1.000-1.030); Urobilinogen Urine 0.2 (0.2-1.0); pH Urine 6.5 (5.0-8.5)
[2024-12-23 21:20] LABS: Basophils Absolute Auto 0.01 K/uL (0.00-0.30); Basophils Percent Auto 0.1 % (0.0-3.0); Eosinophils Absolute Auto 0.01 K/uL (0.00-0.50); Eosinophils Percent Auto 0.1 % (0.0-7.0); Hematocrit 40.3 % (37.0-53.0); Hemoglobin* 14.4 gm/dL (13.5-17.5); Immature Granulocytes Abs Auto 0.14 K/uL (0.00-0.30); Immature Granulocytes Pct Auto 1.3 %; Lymphocytes Percent Auto 8.5 % (20-44); Mean Corpuscular HGB Conc 36 gm/dL (32-36); Mean Corpuscular Hemoglobin 32 pg (26-34); Mean Corpuscular Volume 89 fL (80-100); Monocytes Percent Auto 5.6 % (0.0-11.0); Neutrophils Percent Auto 84.4 % (42.0-72.0); Platelet Count* 215 K/uL (140-440); RDW Coefficient of Variation % 11.7 % (11.5-15.5); Red Blood Count 4.52 m/uL (4.30-5.90); White Blood Count* 10.62 K/uL (4.50-11.00)
[2024-12-23 21:21] LABS: Sodium* 120 mmol/L (135-149); Troponin I* < 0.01 ng/mL (0.01-0.04)
[2024-12-23 21:22] LABS: Slide Review Reflex No
[2024-12-23 21:23] LABS: RBC Urine 0-2 (0-2); Squamous Epithelial Cell Urine Few (None-Few); WBC Urine 0-2 (0-5)
[2024-12-23 21:41] LABS: PCR FLU A Negative PCR FLU A (Negative); PCR FLU B Negative PCR FLU B (Negative); PCR RSV Negative PCR RSV (Negative); SARS PCR* Negative SARS-CoV-2 (Negative)
--- OUTSIDE RECORDS SUMMARY | 2024-12-23 21:48 | XMS_ITS | Clinical Summary ---
Author Organization [facility] Address [address] , [address] [place] [address] Phone Care Team Providers Care Field Marketing Representative Name Role Phone Kathleen Kumar DO [phone] Conditions or Problems Problem Name Problem Code Onset Date Status Entry Date Provider Comment Standard Description Annotate Seizure disorder [id number] (SNOMED CT) Active Linda Brennan MD Seizure disorder Medications Medication Instructions Start Date Stop Date Generic Name [facility] Provider VIMPAT 50 MG TABS 1 po bid for 1 wk then 2 po bid lacosamide [id number] Kathleen León Stacy DO LAMOTRIGINE 25 MG TABS 1 po qhs for 2 wks, then 1 bid for 2 wks, then 2 bid for 1 wk, then 3 bid for 1 wk, then 4 bid lamotrigine [id number] Kathleen León Stacy DO LAMOTRIGINE 25 MG TABS lamotrigine [id number] Kathleen León Stacy DO VIMPAT 50 MG TABS 1 po bid for 1 wk then 2 po bid lacosamide [id number] Kathleen Mau Stacy DO LEVETIRACETAM 750 MG TABS 2 tabs po in AM, 3 tabs pM levetiracetam [id number] Param Kennedy PA-C LEVETIRACETAM 750 MG TABS 3 po bid levetiracetam [id number] Chel Pop RN KEPPRA 1000 MG TABS 1 tablet twice a day levetiracetam [id number] Linda Brennan MD LEVETIRACETAM 750 MG TABS 2 po bid levetiracetam [id number] Kathleen León Stacy DO LEVETIRACETAM 750 MG TABS levetiracetam [id number] Kathleen León Stacy DO KEPPRA 500 MG TABS 2 tabs twice a day levetiracetam 46969004214 Linda Brennan MD KEPPRA 1000 MG TABS 1 tablet twice a day levetiracetam [id number] Linda Brennan MD KEPPRA 500 MG TABS 2 tabs twice a day LEVETIRACETAM [id number] Linda Brennan MD TERBINAFINE HCL TABS TERBINAFINE HCL TABS [id number] Linda Brennan MD KEPPRA 500 MG TABS 1 tab twice a day LEVETIRACETAM [id number] Linda Brennan MD Medications Administered No information [...] up after testing 2019 ORDERS EEG Routine [id number] EEG EXTENDED 41-60mins (END) Vital Signs Date [...]
[2024-12-23] MEDS: LEVETIRACETAM 1,000 mg/100 ml INFUSION 1000 MG IVPB (22:35)
[2024-12-23] MEDS: 0.9 % SODIUM CHLORIDE 1000 ml 1,000 ML 100 ML IV (22:49)
[2024-12-23 23:20] LABS: Sodium* 118 mmol/L (135-149)
[2024-12-23 23:24] LABS: Sodium Urine Random* 36
[2024-12-23 23:41] LABS: Creatinine Urine Random 200 mg/dL
[2024-12-23] MEDS: 3 % SODIUM CHLORIDE 500 ml 30 ML IV ×2 (23:52→23:54)
[2024-12-24 00:02] VITALS: BP 114/69; PULSE 63; RESP 18; O2SAT 94
[2024-12-24 00:31] VITALS: BP 117/63; PULSE 65; RESP 16; O2SAT 92
[2024-12-24 01:02] VITALS: BP 126/70; PULSE 62; RESP 16; O2SAT 94
[2024-12-24 01:32] VITALS: BP 127/63; PULSE 62; RESP 15; TEMP 36.8; O2SAT 93
[2024-12-24 01:54] VITALS: BP 118/74; PULSE 61; RESP 16; TEMP 36.8; O2SAT 95
[2024-12-24 02:06] VITALS: BP 118/74; PULSE 61; RESP 16; TEMP 36.8
[2024-12-26 09:58] LABS: Urine Osmolality 878 mOsm/kg (50-800)
== END 2024-12-24 02:06 | disposition other institution (70) ==
PROVIDERS: Student in an Organized Health Care Education/Training Program; Emergency Provider Family Medicine; PCP Student in an Organized Health Care Education/Training Program
DX: E87.1 Hypo-osmolality and hyponatremia (principal); G40.89 Other seizures; R42 Dizziness and giddiness; R53.1 Weakness; R11.0 Nausea; R68.83 Chills (without fever); M54.2 Cervicalgia; R68.84 Jaw pain
CPT/HCPCS: 36415; 70450; 70496; 70498; 71046; 80048; 81001; 82565; 82570; 83735; 83930; 83935; 84295; 84300; 84484; 85025; 87631; 93005; 96361; 96374; 99285; J1953; J7030; J7131; Q9967

== ENCOUNTER 2024-12-24 01:51 | Outpatient (CLI) | payer MEDICARE, BC, SELFPAY ==
--- OUTSIDE RECORDS SUMMARY | 2024-12-24 03:27 | XMS_ITS | Encounter Summary ---
Author Organization [facility] Address [address] [place] [id number] Care Team Providers Care Buggy Man Name Role Phone Clinic, [facility] Primary Care Provider Reason for Visit * Auth/Cert (Routine) Specialty Diagnoses / Procedures Referred By Dale españa Referred To Contact Med Surg Diagnoses Hyponatremia Hyponatremia Ida Carreon MD [address] [place] [address] Phone: tel: fax: [facility] [address] [place] [address] Phone: tel: fax: Referral ID Status Reason Start Date Expiration Date Visits Re quested Visits Authorized [id number] 1 1 Encounter Details Date Type Department Care Team (Late st Contact Info) Description 12/24/2024 3:27 AM CDT - Present Hospital Encounter [facility] [address] [place] [phone] Ida Carreon MD [address] [place] [address] Jt Ge MD [address] [place], [place] [id number] Stefano Saez MD [address] [place], [place] [id number] Social History Tobacco Use Types Packs/Day Years Used Date Smoking Tobacco: Never Assessed Food Insecurity Answer Date Recorded Within the past 12 months, d id you worry that your food would run out before you got money to buy more? No 12/24/2024 Within the past 12 months, d id the food you bought just not last and you didn t have money to get more? No 12/24/2024 Housing Stability Answer Date Recorded Do you have housing? (Taylor saenz is defined as stable permanent housing and does not include staying outside in a car, in a tent, in an abandoned building, in an overnight custodial, or couch-surfing.) Yes 12/24/2024 Are you worried about losing your housing? No 12/24/2024 Financial Resource Strain Answer Date R ecorded Within the past 12 months, h ave you or your family members you live with been unable to get utilities (heat, electricity) when it was really needed? No 12/24/2024 Transportation Needs Answer Date Record ed Within the past 12 months, h as lack of transportation kept you from medical appointments, getting your medicines, non-medical meetings or appointments, work, or from getting things that you need? No 12/24/2024 Interpersonal Safety Answer Date Record ed Do you feel physically and e motionally safe where you currently live? Yes 12/24/2024 Within the past 12 months, h ave you been hit, slapped, kicked or otherwise physically hurt by someone? No 12/24/2024 Within the past 12 months, h ave you been humiliated or emotionally abused in other ways by your partner or ex-partner? 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 Gender Identity Not on file Sexual Orientation Not on file documented as of this encounter Last Filed Vital Signs Vital Sign Reading Time Taken Comments Blood Pressure 157/80 12/25/2024 11:02 PM CDT Pulse 83 12/25/2024 11:02 PM CDT Temperature 36.8 C (98.2 F) 12/25/2024 11:02 PM CDT Respiratory Rate 18 12/25/2024 11:02 PM CDT Oxygen Saturation 97% 12/25/2024 11:02 PM CDT Inhaled Oxygen Concentration - - Weight 76.7 kg (169 lb 1.5 oz) 12/25/2024 7:52 A M CDT Height 185.4 cm (6' 1) 12/24/2024 3:45 AM CDT Body Mass Index 22.31 12/24/2024 3:45 AM CDT documented in this encounter Progress Notes * Stefano Saez MD - 12/25/2024 5:19 PM CDT [facility] Medicine Progress Note Date of Service: 12/25/2024 Assessment & Plan Javier Scott is a 79 year old male with h/o seizure disorder, transferred from outside ER for hyponatremia and seizure. Hyponatremia Initial Na = 120 ? 118 at outside emergency department, received 3% saline prior to transfer. Repeat Na = 120 upon arrival. Reportedly had a brief seizure while in transport, see below. Appears euvolemic at time of admission. Reportedly started a low sodium diet, also possibly drinks a lot of water (although varying reports about this, unclear if this is true). Patient encephalopathic, records from outside emergency department unavailable at time of admission. Unclear cause of hyponatremia at this time, although appears to have euvolemic hyponatremia possibly related to poor sodium intake vs excessive fluid intake, less likely medication related but cannot rule out. Na 127 this morning which is adequate replacement rate. Recheck 126 ? 133 this afternoon. Etiology of hyponatremia is not clear but possibly due to seizures. - stop NS and follow - stop fluid restriction - recheck this evening Addendum: Na 139 this evening. Normalizing rather rapidly today. ODS risk not high from his starting point of 127 this morning. - resume IVF with D5W at 100/h and recheck in AM Encephalopathy Presented with confusion, A&O to self and president (thought year was 2005, thought location was place for people with memory issues). Does not remember much about events leading up to emergency department visit, although is aware he has been having episodes of memory loss lately, does not know frequency or when it started. Is aware he is confused, at times is able to have a coherent conversation but alternates with nonsensical speech as well. Reportedly had head CT at outside emergency department that was normal, records unavailable at timeof admission. No focal deficits at time of admission. Patient denies any alcohol use. Has seizure disorder with witnessed 30 second seizure while in EMS transport, unclear medication compliance (see below). Ammonia low. Vit B12 normal. RPR nonreactive. Etiology for encephalopathy is most likely post-ictal state, though hyponatremia may have contributed early on. Mentation improving but still very impulsive and tangential at times. - continue to follow Seizure disorder Known history of seizure disorder, it appears he follows with private practice neurology but no records available. Has been prescribed lamotrigine in the past, but not filled since 2021. Also prescribed levetiracetam 500 mg plus 750 mg tabs together BID and oxcarbazepine 450 mg am / 300 mg pm, but compliance recently questioned. Patient did have a witnessed 30 second seizure per EMS, possibly post-ictal upon arrival. Unclear if seizure due to not taking medications vs hyponatremia. Levitiracetam level on admission was therapeutic though may have received load in outside ED. Oxcarbazepine level pending. Lamotrigine level negative. Able to obtain records from neurology this evening 12/25, and confirmed levitiracetam dosing and oxcarbazepine dosing as above and also not on lamotrigine. - Levetiracetam 1000 mg bid ? 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 - Resume oxcarbazepine 450 mg AM and 300 mg PM today 12/25 - Seizure precautions Clinically Significant Risk Factors # Hyponatremia: Lowest Na = 120 mmol/L in last 2 days, will monitor as appropriate # Hypochloremia: Lowest Cl = 90 mmol/L in last 2 days, will monitor as appropriate # Hypocalcemia: Lowest Ca = 8.3 mg/dL in last 2 days, will monitor and replace as appropriate Diet: Fluid restriction 1800 ML FLUID Combination Diet Low Saturated Fat Na <2400mg Diet, No Caffeine Diet DVT Prophylaxis: Low Risk/Ambulatory with no VTE prophylaxis indicated Queen Catheter: Not present Lines: None Cardiac Monitoring: None Code Status: Full Code Discussion/Disposition: Improving but not baseline. Na improving. Follow at least overnight again. Medically Ready for Discharge: Anticipated Tomorrow Medical Decision Making 55 MINUTES SPENT BY ME on the date of service doing chart review, history, exam, documentation & further activities per the note. 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 Patient pulled IVs out twice overnight but not today. Physical Exam Temp: [98.2 ??F (36.8 ??C)] 98.2 ??F (36.8 ??C) Pulse: [54-64] 64 Resp: [16-18] 16 BP: (125-135)/(57-67) 135/67 SpO2: [96 %] 96 % Weights: Vitals: 12/24/24 0345 12/25/24 0752 Weight: 75 kg (165 lb 5.5 oz) 76.7 kg (169 lb 1.5 oz) Body mass index is 22.31 kg/m??. Constitutional: alert and oriented to place, day, date, some recent events, but also some tangential thought process, impulsive, mild pressured speech CV: Regular, no edema Respiratory: CTA bilaterally GI: Soft, non-tender, bowel sounds normal Skin: Warm and dry Neuro: face symmetric, no nystagmus, EOMI, PERRL, tongue midline without fasciculations, no asterixis, no palmar drift, [id number] smooth and accurate Data Recent Labs Lab 12/25/24 1428 12/25/24 0834 12/25/24 0305 12/24/24 1043 12/24/24 0758 12/24/24 0654 WBC -- -- 11.8* -- -- 10.7 HGB -- -- 13.0* -- -- 12.5* MCV -- -- 89 -- -- 90 PLT -- -- 182 -- -- 173 NA 133* 126* 127* < > -- 120* 120* POTASSIUM -- -- 4.6 -- -- 4.2 CHLORIDE -- -- 96* -- -- 90* CO2 -- -- 20* -- -- 21* BUN -- -- 16.7 -- -- 12.8 CR -- -- 0.87 -- -- 0.84 ANIONGAP -- -- 11 -- -- 9 PAT -- -- 8.5* -- -- 8.3* GLC -- -- 133* -- 121* 117* ALBUMIN -- -- -- -- -- 3.6 PROTTOTAL -- -- -- -- -- 5.5* BILITOTAL -- -- -- -- -- 0.7 ALKPHOS -- -- -- -- -- 63 ALT -- -- -- -- -- 14 AST -- -- -- -- -- 25 < > = values in this interval not displayed. Recent Labs Lab 12/25/24 0305 12/24/24 0758 12/24/24 0654 12/24/24 0354 GLC 133* 121* 117* 130* Unresulted Labs Ordered in the Past 30 Days of this Admission Date and Time Order Name Status Description 12/24/2024 9:49 AM Oxcarbazepine Level In process Imaging: No results found for this or any previous visit (from the past 24 hours). I reviewed all new labs and imaging results over the last 24 hours. I personally reviewed no imagesor EKG's today. Medications Current Facility-Administered Medications Medication Dose Route Frequency Provider Last Rate Last Admin sodium chloride 0.9 % infusion Intravenous Continuous Jt Ge MD 75 mL/hr at 12/25/24 1234New Bag at 12/25/24 1234 Current Facility-Administered Medications Medication Dose Route Frequency Provider Last Rate Last Admin levETIRAcetam (KEPPRA) tablet 1,000 mg 1,000 mg Oral BID Ida Carreon MD 1,000 mg at 12/25/24 0803 sodium chloride (PF) 0.9% PF flush 3 mL 3 mL Intracatheter Q8H Ida Carreon MD 3 mL at 12/24/24 0617 Stefano Saez MD [facility] Medicine * Saskia Breen LSW - 12/25/2024 4:39 PM CDT Care Transitions Dept Referral received to assist with discharge planning EMR reviewed. Per RN notes- Patient is currently alert to self/place Remains on a 1:1 Unable to complete assessment with patient today Plan to reach out to Pt's daughter to complete assessment HALEY Ayala [facility] [phone] [facility][Note 3] [phone] * Sabine Srinivasan RN - 12/24/2024 4:24 PM CDT End Of Shift Note Situation: Hyponatremia Plan: every 6 hour sodium checks with NACL 0.9% 75 mL/ hr to RFA. Subjective/Objective: AMS, STM but LTM intact. After explanation patient will ask where am I again?, what is this place, after explaining to him he is in hospital. Neuro: AMS, see above note Resp:RA GI/: Continent ambulates to bathroom with SBA due to lines MSK: Intact Skin: Intact LDAs: PIV RFA Report given to Chriss Matos RN for transfer of care. * Sabine Srinivasan RN - 12/24/2024 4:17 PM CDT Payroll And Benefits Analyst was able to fax release of information statement to [facility] [phone] to obtain medical records. [facility] phone number [phone]. Daughter is at bedside with patient giving consent to release information. * Sabine Srinivasan RN - 12/24/2024 8:17 AM CDT Payroll And Benefits Analyst noted bed alarm sounding, patient was ambulating around room, had taken his PIV out, blood was trailed from bed to sink to bathroom. Patient was unaware what happened, kept looking at his arm wondering how he started bleeding. Payroll And Benefits Analyst was able to clean up LUE FA and noted 18G PIV sitting on his bedside table. Patient states, what's that. Was unaware it came from his arm. Payroll And Benefits Analyst had to repeat several times on how he became to [facility] from [facility]. Unaware he has seizures. Patient had his cell phone in his hand stating he did not know how to call his daughter, then once sports book writer assisted patient was able to call Gabriella (daughter). As he was talking on the phone to her,he asked how he can talk to his daughter Gabriella. Daughter states she will go to patient house and get medications and will be in to see her dad today and will bring his meds. Daughter states patient stated he started a low sodium diet for health reasons recently. Update to night monitor/ MD Ge. * Renae Peters PA-C - 12/24/2024 7:[address] [facility] Medicine Progress Note - Hospitalist Service Date of Admission: 12/24/2024 Assessment & Plan Javier Scott is a 79 year old male with h/o seizure disorder, transferred from outside ER for hyponatremia and seizure. Hyponatremia Initial Na = 120 ? 118 at outside emergency department, received 3% saline prior to transfer. Repeat Na = 120 upon arrival. Reportedly had a brief seizure while in transport, see below. Appears euvolemic at time of admission. Reportedly started a low sodium diet, also possibly drinks a lot of water (although varying reports about this, unclear if this is true). Patient encephalopathic, records from outside emergency department unavailable at time of admission. Unclear cause of hyponatremia at this time, although appears to have euvolemic hyponatremia possibly related to poor sodium intake vs excessive fluid intake, less likely medication related but cannot rule out. - Trial NS @ 75 ml/hr - Na checks q4h - At risk for ODS; goal Na not to exceed 126 by 7 am on 12/25 - Urine osmolality and serum osmolality pending - Fluid restriction 1800 ml daily Encephalopathy Presented with confusion, A&O to self and president (thought year was 2005, thought location was place for people with memory issues). Does not remember much about events leading up to emergency department visit, although is aware he has been having episodes of memory loss lately, does not know frequency or when it started. Is aware he is confused, at times is able to have a coherent conversation but alternates with nonsensical speech as well. Reportedly had head CT at outside emergency department that was normal, records unavailable at timeof admission. No focal deficits at time of admission. Patient denies any alcohol use. Has seizure disorder with witnessed 30 second seizure while in EMS transport, unclear medication compliance (see below). Etiology for encephalopathy is unclear, possibly post-ictal state, differential also includes acuteCVA (although outside window for acute intervention and no other deficits), metabolic encephalopathy, less likely hepatic encephalopathy (ammonia level low, not known to be a drinker or have liver disease) or toxic encephalopathy. - Neuro checks q4h - Ammonia level low (15) - B12, folic acid, RPR pending - Defer MRI for now, reevaluate if not improving Seizure disorder Known history of seizure disorder, it appears he follows with private practice neurology but no records available. Has been prescribed lamotrigine in the past, but not filled since 2021. Also prescribed levetiracetam (500 vs 750 mg bid, unclear what the most recent dose is) and oxcarbazepine 450 mgam / 300 mg pm, but it is unclear if he has been taking these regularly (see medication scribe note12/24/24 for pharmacy fill details). Patient encephalopathic at time of admission and does not recall his medications or if he has been taking them. He did have a witnessed 30 second seizure per EMS, possibly post-ictal upon arrival. Unclear if seizure due to not taking medications vs hyponatremia. - Levetiracetam 1000 mg bid - Home oxcarbazepine & lamotrigine on hold for now - Drug levels pending (levetiracetam, oxcarbazepine, and lamotrigine) - Seizure precautions ADDENDUM 2:27 PM Additional information obtained from patient's daughter: Patient's first seizure was about 4 years ago and manifested as lip smacking and confusion. Patientwas started on Keppra, but a few years ago had been decreasing his dose to half and had recurrent seizures and subtherapeutic levels. It appears patient is not taking his medications again (or is taking reduced doses) based on having pills from a number of months ago still present in pill containers at his home. He has pill containers for levetiracetam and oxcarbazepine at home (but not lamotrigine). Medications are prescribed by neurologist Dr. Angelica Johnson at [facility], will attempt to obtain records. Diet: Combination Diet Low Saturated Fat Na <2400mg Diet, No Caffeine Diet Fluid restriction 1800 ML FLUID DVT Prophylaxis: Pneumatic Compression Devices Queen Catheter: Not present Lines: None Cardiac Monitoring: None Code Status: Full Code Clinically Significant Risk Factors Present on Admission # Hyponatremia: Lowest Na = 120 mmol/L in last 2 days, will monitor as appropriate # Hypochloremia: Lowest Cl = 90 mmol/L in last 2 days, will monitor as appropriate # Hypocalcemia: Lowest Ca = 8.3 mg/dL in last 2 days, will monitor and replace as appropriate Social Drivers of Health Disposition Plan Medically Ready for Discharge: Anticipated in 2-4 Days The patient's care was discussed with the Attending Physician, Dr. Jt Ge, Bedside Nurse, andPatient. Renae Peters PA-C Hospitalist Service [facility] Securely message with [facility] (more info) Text page via [facility] Paging/Directory Interval History Patient remains confused, is aware he is confused and mentions having recent episodes of memory loss, does not know how often episodes occur or when they started. Does not remember any events leading up to going to the emergency department last night. Is A&O to self and president only; states his location is a place for people with memory issues, does not know date but notes it looks like summer outside so December or January, but states the yearis 2004 or 2005. 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 Patient does not know if he takes any medications at home, let alone what he takes and when he lasthad them, is not sure if he started any new medications. Says I think I've had seizures in the past but I don't know. Denies any alcohol use. Stays hydrated but doesn't think he drinks an excessive amount of water ('3-4 glasses a day, maybe more if I'm outside and its hot). Currently denies any pain, breathing difficulties, palpitations, urinary problems, dizziness / lightheadedness, weakness, numbness, tingling. Physical Exam Vital Signs: Temp: 98.8 ??F (37.1 ??C) Temp src: Oral BP: 116/74 Pulse: 58 Resp: 30 SpO2: 95 % O2 Device: None (Room air) Weight: 165 lbs 5.52 oz Constitutional: Alert, oriented x2, pleasantly confused but cooperative. No apparent distress, appears nontoxic. Speaking in full sentences, at times conversation is coherent and at other times speaks nonsensically. Eyes: Eyes are clear, pupils are reactive. No scleral icterus. Extraocular movements intact. HEENT: Oropharynx is clear and moist, no lesions. Normocephalic, no evidence of cranial trauma. Cardiovascular: Regular rhythm and rate, normal S1 and S2. No murmur, rubs, or gallops. Peripheral pulses intact bilaterally. No lower extremity edema. Respiratory: Non-labored breathing on room air. Lung sounds are clear to auscultation bilaterally without wheezes, rhonchi, or crackles. GI: Soft, non-distended. Non-tender, no rebound or guarding. No hepatosplenomegaly or masses appreciated. Normal bowel sounds. Musculoskeletal: Without obvious deformity, normal range of motion. Normal muscle bulk and tone. Distal CMS intact. Skin: Warm and dry, no rashes or ecchymoses. No mottling of skin. Neurologic: Patient moves all extremities. Cranial nerves are grossly intact. Tile Erector is symmetric. Gross strength and sensation are equal bilaterally. Normal rapid alternating movements. No pronator drift. Normal finger to nose testing. Genitourinary: Deferred Medical Decision Making 85 MINUTES SPENT BY ME on the date of service doing chart review, history, exam, documentation & further activities per the note. MANAGEMENT DISCUSSED with the following over the past 24 hours: Dr. Jt Ge NOTE(S)/MEDICAL RECORDS REVIEWED over the past 24 hours: PCP note 11/14/24, RN notes 12/24/24 Data I have personally reviewed the following data over the past 24 hrs: 10.7 \ 12.5 (L) / 173 123 (L) 90 (L) 12.8 / 121 (H) 4.2 21 (L) 0.84 \ ALT: 14 AST: 25 AP: 63 TBILI: 0.7 ALB: 3.6 TOT PROTEIN: 5.5 (L) LIPASE: N/A TSH: 3.31 T4: N/A A1C: N/A Imaging results reviewed over the past 24 hrs: No results found for this or any previous visit (from the past 24 hours). Cosigned by Jt Ge MD at 12/24/2024 4:19 PM CDT Associated attestation - Jt Ge MD - 12/24/2024 4:19 PM CDT Physician Attestation I saw and evaluated Javier Scott as part of a shared CLIENT SOLUTIONS MANAGER/PA visit. I personally reviewed the vital signs, medications, labs, and imaging. I personally provided a substantive portion of care for this patient and I approve the care plan aswritten by the KWABENA. I was involved with Medical Decision Making including: Please see A&P for additional details of medical decision making. MANAGEMENT DISCUSSED with the following over the past 24 hours: Renae Peters Discussed and determined plan in collaboration with Renae as below including trial of NS infusion given appropriately dilute sodium in urine. Showing initial improvement with this, will follow every 6 hours overnight with goal of up to 128. Discussed possible MRI, but stroke seems very unlikely here and if present is not acute. Can reassess that tomorrow if mental status not clearing with improved sodium and being further out from seizures. Continue keppra, can reassess other medications tomorrow - I'm suspicious he may be on multiple medications due to not reliably taking them, but cannotsee neurology notes to confirm this or if they had been checking levels in the past. 50 MINUTES SPENT BY ME on the date of service doing chart review, history, exam, documentation & further activities per the note. Jt Ge MD Date of Service (when I saw the patient): 12/24/24 * Dylan Jin RN - 12/24/2024 4:17 AM CDT Recorder completed secondary skin check with primary nurse. Agree with findings. * Anabella Church RN - 12/24/2024 3:50 AM CDT [facility] ADMISSION NOTE Patient admitted to room 1008 at approximately 0345 via cart from EMS. Patient was accompanied by EMS staff. Verbal SBAR report received from Dandre MARX RN prior to patient arrival. Patient trasferred to bed via self. Patient alert and oriented X 2. The patient is not having any pain. . Admission vital signs: Blood pressure 115/63, pulse 54, temperature 98 ??F (36.7 ??C), temperature source Oral, resp. rate 14, height 1.854 m (6' 1), weight 75 kg (165 lb 5.5 oz), SpO2 97%. Patient was oriented to plan of care, call light, bed controls, tv, telephone, bathroom, and visiting hours. Risk Assessment The following safety risks were identified during admission: fall and seizure. Yellow risk band applied: YES. Skin Initial Assessment This sports book writer admitted this patient and completed a full skin assessment and Evan score in the Adult PCS flowsheet. Photo documentation of skin problem and/or wound competed via Tindie application (located under Modular Patterns): N/A Appropriate interventions initiated as needed. Secondary skin check completed by Nick ELKINS. Education Patient has a [place] to Observation order: Yes Observation education completed and documented: Yes Anabella Church RN documented in this encounter H&P Notes * Ida Carreon MD - 12/24/2024 4:35 AM CDT HOSPITALIST TELEMED ADMISSION H&P Service Date : 12/24/2024 Dr. Lauri Moser, ceci located in [place]. Javier Scott is located in [place] at [facility]. The RN or tech on duty in the ED is assisting me today with this patient. chief complaint: Near-syncope History of Present Illness: Javier Scott is a 79 year old male with h/o seizure disorder, transferred from outside ER for hyponatremia. Pt is confused, and postictal, not able to give hx at this time. States I don't know trying to gain the situation I guess. Per my d/w ER MD at [facility], family brought him into the ER due to anear syncopal episode. I do not have the outside ER records. I am told that he had a sodium of 120, 118 repeat. I am told he had a CT CTA head was negative and they looked euvolemic. They gave 3% saline after discussion with Nephrology. I do not have any other lab work. In outside records I see prescriptions for Keppra, Lamictal and oxcarbazepine . Unclear exactly what he was taking .There are some records in chart review but it is unclear exactly what seizure meds he has taking an he was unable to tell me. He had a 30 second seizure [address] the way here in ambulance per nursing in his now postictal but improving per nursing. Past Medical History Seizure disorder Past Surgical History No past surgical history on file. Social History Javier Family History Javier's family history is not on file. Home Medications No current outpatient medications Allergies No Known Allergies 10 pt ROS neg except as noted in HPI Physical Exam: I performed all aspects of the physical examination via Telemedicine associated with two way audio and video communication. Vital Signs: Blood pressure 115/63, pulse 54, temperature 98 ??F (36.7 ??C), temperature source Oral, resp. rate 14, height 1.854 m (6' 1), weight 75 kg (165 lb 5.5 oz), SpO2 97%. Physical Exam Gen: Well-developed, well-nourished, in no acute distress, lying semi-supine in hospital stretcher HEENT: Anicteric sclera, PER, hearing intact to voice Resp: No accessory muscle use, breath sounds clear; no wheezes no rales no rhonchi Card: No murmur, normal S1, S2 Abd: Soft per RN exam, no TTP, non-distended, normoactive bowel sounds are present Musc: moves all extremities well Psych: confused, not anxious, not agitated DATA Labs: I have personally reviewed the following studies: No results for input(s): POTASSIUM, CHLORIDE, CO2, BUN, CREATININE, GLUCOSE, PHOS, ALBUMIN, ALKPHOS, AST, ALT, LIPASE, AMYLASE, PTT, INR in the last 168 hours. Invalid input(s): SODIUM, CAPTH, ALICE, MAGNESIUM, BILIRUBIN, LACTA No results for input(s): WBC, HGB, HCT, PLT, BAND, BNP, MYOGLOBIN, CRP, TSH in the last 168 hours. Invalid input(s): ESR, CORTDX, MMB, RAPDTR, CPK, URICACID, NH3, SERUMOSMLLTY, ROMELIA, UOSM Imaging: ER imaging reviewed ASSESSMENT/PLAN: 1. 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 Seizure disorder: - See above Clinically Significant Risk Factors Present on Admission Misc DVT prophylaxis: SCDs Code Status: Full code The plan was discussed with - Patient Time: 30 min documented in this encounter Miscellaneous Notes * Plan of Care - Alice Calero RN - 12/25/2024 7:10 PM CDT Problem: Adult Inpatient Plan of Care Goal: Absence of Hospital-Acquired Illness or Injury Intervention: Identify and Manage Fall Risk Recent Flowsheet Documentation Taken 12/25/2024 1530 by Alice Calero RN Safety Promotion/Fall Prevention: (1:1) activity supervised assistive device/personal items within reach clutter free environment maintained lighting adjusted nonskid shoes/slippers when out of bed room door open room near nurse's station other (see comments) Taken 12/25/2024 0800 by Alice Calero RN Safety Promotion/Fall Prevention: (1:1) activity supervised assistive device/personal items within reach clutter free environment maintained lighting adjusted nonskid shoes/slippers when out of bed room door open room near nurse's station other (see comments) Problem: Adult Inpatient Plan of Care Goal: Absence of Hospital-Acquired Illness or Injury Intervention: Prevent Infection Recent Flowsheet Documentation Taken 12/25/2024 1530 by Alice Calero RN Infection Prevention: rest/sleep promoted hand hygiene promoted Taken 12/25/2024 0800 by Alice Calero RN Infection Prevention: rest/sleep promoted hand hygiene promoted Problem: Risk for Delirium Goal: Improved Behavioral Control Intervention: Minimize Safety Risk Recent Flowsheet Documentation Taken 12/25/2024 1530 by Alice Calero RN Enhanced Safety Measures: room near unit station product safety expert at bedside Taken 12/25/2024 0800 by Alice Calero RN Enhanced Safety Measures: room near unit station product safety expert at bedside Goal Outcome Evaluation: Plan of Care Reviewed With: patient Overall Patient Progress: improvingOverall Patient Progress: improving Outcome Evaluation: Patient is A/O with intermittent confusion at times. Patient is up with SBA anddenies any pain. Sodium level checks are scheduled Q6hrs. Last sodium check at 1630 was 133. IV is SL. Hallway monitor 1:1 * Plan of Care - Tricia Merchant RN - 12/25/2024 4:53 AM CDT Goal Outcome Evaluation: Plan of Care Reviewed With: patient Overall Patient Progress: improvingOverall Patient Progress: improving Patient is alert to self and place (knew he was in the hospital but thought he was in [place]). Denying pain. IV infusing with Na checks every 6 hours, last Na was 127 at 0430am. Patient has been cooperative but very forgetful. Patient frequently asking what is this helping to do how did I gethere and why am I here. Denying pain. Up with stand by assist to ambulate to the bathroom. Seizur e precautions and 1:[address], no seizure activity noted on this shift. Time cared for patient 2330 to 0730. * Plan of Care - Maura Drake RN - 12/24/2024 8:40 PM CDT Problem: Risk for Delirium Goal: Optimal Coping Outcome: Progressing Goal: Improved Behavioral Control Outcome: Progressing Intervention: Minimize Safety Risk Recent Flowsheet Documentation Taken 12/24/2024 171 by Maura Drake, RN Enhanced Safety Measures: review medications for side effects with activity Goal: Improved Attention and Thought Clarity Outcome: Progressing Goal: Improved Sleep Outcome: Progressing Activity: SBA Neuro: Alert to self an they are in a hospital. Neuro assessments Q4 hours, all intact. Patient daughter thought that maybe her father had had a few unwitnessed seizure. Daughter stated that the patient will become focused on something, may stear off. This nurse has not witnessed any seizure activity, but did become focused on a water bottle. Resp: WNL GI/: Up ambulating to the bathroom Diet: Vegetarian IV Access/Drains: 0.9% NS at 75 Vitals: BP 125/57 (BP Location: Left arm) Pulse 54 Temp 98.2 ??F (36.8 ??C) (Oral) Resp 18 Ht 1.854 m (6' 1) Wt 75 kg (165 lb 5.5 oz) SpO2 96% BMI 21.81 kg/m?? Plan: Na labs Q6 hrs. Patient Na was 125, PA aware * Plan of Care - Sabine Srinivasan RN - 12/24/2024 4:24 PM CDT Problem: Adult Inpatient Plan of Care Goal: Plan of Care Review Description: The Plan of Care Review/Shift note should be completed every shift. The Outcome Evaluation is a brief statement about your assessment that the patient is improving, declining, or no change. This information will be displayed automatically on your shift note. Outcome: Progressing Goal: Patient-Specific Goal (Individualized) Description: You can add care plan individualizations to a care plan. Examples of Individualizationmight be: Parent requests to be called daily at 9am for status, I have a hard time hearing out of my right ear, or Do not touch me to wake me up as it startles me. Outcome: Progressing Goal: Absence of Hospital-Acquired Illness or Injury Outcome: Progressing Goal: Optimal Comfort and Wellbeing Outcome: Progressing Intervention: Provide Person-Centered Care Recent Flowsheet Documentation Taken 12/24/2024 1624 by Sabine Srinivasan RN Trust Relationship/Rapport: care explained questions encouraged thoughts/feelings acknowledged Taken 12/24/2024 0800 by Sabine Srinivasan RN Trust Relationship/Rapport: care explained questions encouraged thoughts/feelings acknowledged Goal: Readiness for Transition of Care Outcome: Progressing Problem: Risk for Delirium Goal: Optimal Coping Outcome: Progressing Goal: Improved Behavioral Control Outcome: Progressing Intervention: Minimize Safety Risk Recent Flowsheet Documentation Taken 12/24/2024 1624 by Sabine Srinivasan RN Trust Relationship/Rapport: care explained questions encouraged thoughts/feelings acknowledged Taken 12/24/2024 0800 by Sabine Srinivasan RN Trust Relationship/Rapport: care explained questions encouraged thoughts/feelings acknowledged Goal: Improved Attention and Thought Clarity Outcome: Progressing Goal: Improved Sleep Outcome: Progressing Goal Outcome Evaluation: * Medication Scribe - Admission Medication History - Chikis Buchanan - 12/24/2024 10:44 AM CDT Medication Scribe Admission Medication History Admission medication history is complete. The information provided in this note is only as accurateas the sources available at the time of the update. Information Source(s): Family member, [facility] pharmacy, and [facility] via phone Pertinent Information: Spoke with his daughter Zuleyka by cell phone [phone]. Also, with [facility] [place] by phone. Per [facility], [place], he has not filled the Lamotrigine since 2021. Daughter saw no bottlesof that at patient's home. She did find Oxcarbazepine 300 mg with fill date of 12/16/24, (which [facility] verified). Levetiracetam 750 mg bid last filled 12/17/24. (which [facility] verified). [facility] also stated that patient had an order for Levetiracetam 500 mg bid to go with 750 mg bid last filled on 10/05/24 which daughter did not find bottles of at patient's home. So don't know for sure about that strength. Patient's daily pill box was empty. Daughter states that he usually fills it on Tuesday nights. So not sure when patient last took medicine at home. Daughter also found bottles of Levetiracetam 750 mg and Oxcarbazepine 300 mg that were filled in September of 2024 in his closet that still had medicines in them. Changes made to [employer] medication list: Added: All of the medicines on [employer] list are new to the list as he is not a [facility] patient. Deleted: None Changed: None Allergies reviewed with patient and updates made in EHR: no, patient is confused at this time. Medication History Completed By: Chikis Buchanan 12/24/2024 10:44 AM [employer] Med List Medication Sig Last Dose/Taking levETIRAcetam (KEPPRA) 500 MG tablet Take 500 mg by mouth 2 times daily. Unknown levETIRAcetam (KEPPRA) 750 MG tablet Take 750 mg by mouth 2 times daily. Unknown OXcarbazepine (TRILEPTAL) 300 MG tablet Take 450 mg by mouth every morning. Unknown OXcarbazepine (TRILEPTAL) 300 MG tablet Take 300 mg by mouth every evening. Unknown * Plan of Care - Anabella Church RN - 12/24/2024 6:30 AM CDT Goal Outcome Evaluation: Pt resting comfortably. Remains confused, oriented to self and location, but asks repetitive questions such as how did I get here? What happened? What's the plan?. Pt reminded of situation and planof care. Sodium level pending. Pt able to use urinal independently- Urine sample sent. Anabella Church RN on 12/24/2024 at 6:32 AM documented in this encounter Plan of Treatment Pending Results Name Type Priority Associated Diagnoses Date /Time Oxcarbazepine Level Lab Routine 12/24 10:43 AM CDT Scheduled Orders Name Type Priority Associated Diagnoses Order Schedule Oxygen: Nasal cannula, Oxygen mask Respiratory Care Routine As Needed until discontinued starting 12/24/2024 Oxcarbazepine Level Lab Routine Routi ne for 1 Occurrences starting 12/24/2024 until 12/24/2024 Basic metabolic panel Lab Routine AM Draw for 1 Occurrences starting 12/26/2024 until 12/26/2024 documented as of this encounter Procedures * The patient is currently admitted. The information in this section might not be complete until the patient is discharged. Procedure Name Priority Date/Time Associated Diagnosis Comments SODIUM Timed 12/25/2024 8:24 PM CDT SODIUM Timed 12/25/2024 2:28 PM CDT EXTRA TUBE Routine 12/25/2024 8:34 AM CDT EXTRA PURPLE TOP TUBE Routine 12/25/2024 8:34 AM CDT SODIUM Timed 12/25/2024 8:34 AM CDT BASIC METABOLIC PANEL Routine 12/25/2024 3:05 AM CDT CBC WITH PLATELETS Routine 12/25/2024 3: 05 AM CDT SODIUM Timed 12/24/2024 8:30 PM CDT SODIUM Timed 12/24/2024 2:32 PM CDT TREPONEMA ABS W REFLEX TO RPR AND TITER Routine 12/24/2024 10:43 AM CDT LAMOTRIGINE LEVEL Routine 12/24/2024 10: 43 AM CDT KEPPRA (LEVETIRACETAM) LEVEL Routine 12/24/2024 10:43 AM CDT FOLATE Routine 12/24/2024 10:43 AM CDT AMMONIA Routine 12/24/2024 10:43 AM CDT VITAMIN B12 Routine 12/24/2024 10:43 AM CDT SODIUM Timed 12/24/2024 10:43 AM CDT GLUCOSE BY METER Routine 12/24/2024 7:58 AM CDT CBC WITH PLATELETS AND DIFFERENTIAL Routine 12/24/2024 6:54 AM CDT CBC WITH PLATELETS & DIFFERENTIAL Routine 12/24/2024 6:54 AM CDT TSH WITH FREE T4 REFLEX Routine 12/24/2024 6:54 AM CDT OSMOLALITY STAT Add-on 12/24/2024 6:54 AM CDT COMPREHENSIVE METABOLIC PANEL Routine 12/24/2024 6:54 AM CDT SODIUM Timed 12/24/2024 6:54 AM CDT SODIUM RANDOM URINE Routine 12/24/2024 6 :17 AM CDT OSMOLALITY, RANDOM URINE Routine 12/24/2024 6:17 AM CDT GLUCOSE BY METER Routine 12/24/2024 3:54 AM CDT documented in this encounter Results * Sodium (12/25/2024 8:24 PM CDT) Sodium 139 135 - 145 mmol/L 12/25/2024 8:50 PM CDT [facility] Blood STRUCTURE OF RIGHT UPPER LIMB / Unknown Venipuncture / Unknown 12/25/2024 8:24 PM CDT 12/25/2024 8:28 PM CDT us Jt Ge MD LAB - BLOOD ORDERABLES Final R esult [facility] [address] [facility]. Room [address] [place] [address] * (ABNORMAL) Sodium (12/25/2024 2:28 PM CDT) Sodium 133(L) 135 - 145 mmol/L 12/25/2024 3:48 PM CDT [facility] Blood BLOOD SPECIMEN / Unknown Venipuncture / Unknown 12/25/2024 2:28 PM CDT 12/25/2024 2:31 PM CDT Jt Ge MD LAB - BLOOD ORDERABLES Final R esult Performing Organization Address City/[facility]/ZIP Co de Phone Number [facility] Care Lab [address] [place] [address]. Room [address] [place] [phone] * Extra Purple Top Tube (12/25/2024 8:34 AM CDT) Hold Specimen JIC 12/25/2024 9:46 AM CDT [facility] Blood STRUCTURE OF RIGHT UPPER LIMB / Unknown Venipuncture / Unknown 12/25/2024 8:34 AM CDT 12/25/2024 8:38 AM CDT Stefano Saez MD LAB - BLOOD ORDERABLES Fi nal Result Performing Organization Address [facility]UST Co de Phone Number [facility] [address] [place] [address]. Room [address] [place] [phone] * (ABNORMAL) Sodium (12/25/2024 8:34 AM CDT) Sodium 126(L) 135 - 145 mmol/L 12/25/2024 8:59 AM CDT [facility] Blood STRUCTURE OF RIGHT UPPER LIMB / Unknown Venipuncture / Unknown 12/25/2024 8:34 AM CDT 12/25/2024 8:37 AM CDT Jt Ge MD LAB - BLOOD ORDERABLES Final R esult Performing Organization Address City/[facility]/ZIP Co de Phone Number [facility] Lab [address] [facility]. Room [address] [place] [address] * (ABNORMAL) Basic metabolic panel (12/25/2024 3:05 AM CDT) [facility] Sodium 127(L) 135 - 145 mmol/L 12/25/2024 3:46 AM CDT [facility] Potassium 4.6 3.4 - 5.3 mmol/L 12/25/2024 3:46 AM CDT [facility] Chloride 96(L) 98 - 107 mmol/L 12/25/2024 3:46 AM CDT [facility] Carbon Dioxide (CO2) 20(L) 22 - 29 mmol/L 12/25/2024 3:46 AM CDT [facility] Anion Gap 11 7 - 15 mmol/L 12/25/2024 3:46 AM CDT [facility] Urea Nitrogen 16.7 8.0 - 23.0 mg/dL 12/25/2024 3:46 AM CDT [facility] Creatinine 0.87 0.67 - 1.17 mg/dL 12/25/2024 3:46 AM CDT [facility] GFR Estimate 88 >60 mL/min/1.7 3m2 12/25/2024 3:46 AM [facility] Comment:eGFR calculated 2020 CKD-EPI equation. Calcium 8.5(L) 8.8 - 10.4 mg/dL 12/25/2024 3:46 AM CDT [facility] Glucose 133(H) 70 - 99 mg/dL 12/25/2024 3:46 AM T [facility] Blood STRUCTURE OF RIGHT UPPER LIMB / Unknown Venipuncture / Unknown 12/25/2024 3:05 AM CDT 12/25/2024 3:27 AM CDT Jt Ge MD LAB - BLOOD ORDERABLES Final R esult [facility] [address] [place] [address]. Room # [address] [place] [address] * (ABNORMAL) CBC with platelets (12/25/2024 3:05 AM CDT) WBC Count 11.8(H) 4.0 - 11.0 10e3/uL 12/25/2024 3:30 AM CDT [facility] RBC Count 4.13(L) 4.40 - 5.90 10e6/uL 12/25/2024 3:30 AM CDT [facility] Hemoglobin 13.0(L) 13.3 - 17.7 g/dL 12/25/2024 3:30 AM CDT [facility] Hematocrit 36.9(L) 40.0 - 53.0 % 12/25/2024 3:30 AM CDT [facility] MCV 89 78 - 100 fL 12/25/2024 3:30 AM CDT [facility] MCH 31.5 26.5 - 33.0 pg 12/25/2024 3:30 AM CDT [facility] MCHC 35.2 31.5 - 36.5 g/dL 12/25/2024 3:30 [facility] RDW 12.0 10.0 - 15.0 % 12/25/2024 3:30 AM [facility] Platelet Count 182 150 - 450 10e3/uL 12/25/2024 3:30 AM CDT [facility] Blood STRUCTURE OF RIGHT UPPER LIMB / Unknown Venipuncture / Unknown 12/25/2024 3:05 AM CDT 12/25/2024 3:27 AM CDT Jt Ge MD LAB - BLOOD ORDERABLES Final R esult [facility] [address] [facility]. Room [address] [place] [phone] * (ABNORMAL) Sodium (12/24/2024 8:30 PM CDT) Pathologist [facility] Sodium 125(L) 135 - 145 mmol/L 12/24/2024 8:46 PM CDT [facility] Blood STRUCTURE OF LEFT UPPER LIMB / Unknown Venipuncture / Unknown 12/24/2024 8:30 PM CDT 12/24/2024 8:33 PM CDT Jt Ge MD LAB - BLOOD ORDERABLES Final R esult Performing Organization Address City/[facility]/ZIP Co de Phone Number [facility] [address] [place] [address]. Room # [address] [place] [address] * (ABNORMAL) Sodium (12/24/2024 2:32 PM CDT) Sodium 123(L) 135 - 145 mmol/L 12/24/2024 2:59 PM CDT [facility] Blood STRUCTURE OF LEFT UPPER LIMB / Unknown Venipuncture / Unknown 12/24/2024 2:32 PM CDT 12/24/2024 2:42 PM CDT Jt Ge MD LAB - BLOOD ORDERABLES Final R esult Performing Organization Address [facility]UST Co de Phone Number [facility] [address] [place] [address]. Room [address] [place] [address] * Treponema Abs w Reflex to RPR and Titer (12/24/2024 10:43 AM CDT) Treponema Antibody Total Nonreactive Nonreactive 12/24/2024 4:27 PM CDT [facility] Blood STRUCTURE OF LEFT UPPER LIMB / Unknown Venipuncture / Unknown 12/24/2024 10:43 AM CDT 12/24/2024 10:47 AM CDT Renae Peters PA-C LAB - BLOOD ORDERABLES Final Result [facility]/PROT/ENDO [facility]Prot/Endo [address] [facility] [address], [address] [place] [address], [facility] [address] [facility] [address], [address] [place] [phone], [place] * (ABNORMAL) Lamotrigine Level (12/24/2024 10:43 AM CDT) Lamotrigine <0.9(L) 3.0 - 15.0 ug/mL 12/25/2024 3:16 PM CDT [facility] Comment: INTERPRETIVE INFORMATION: Lamotrigine Therapeutic Range: 3.0-15.0 ug/mL Toxic: Greater than or equal to 20 ug/mL Pharmacokinetics varies widely, particularly with co-medications and/or compromised renal function. Adverse effects may include dizziness, somnolence, nausea and vomiting. Performed By: [employer] [address] [place] [id number] [employer]: Tacos Velasquez MD, PhD CLIA Number: [id number] Blood STRUCTURE OF LEFT UPPER LIMB / Unknown Venipuncture / Unknown 12/24/2024 10:43 AM CDT 12/24/2024 10:47 AM CDT Renae Peters PA-C LAB - BLOOD ORDERABLES Final Result Performing Organization Address City/[facility]/ZIP Co de Phone Number [facility] [address] [place] [phone] [phone] * Keppra (Levetiracetam) Level (12/24/2024 10:43 AM CDT) Keppra (Levetiracetam) Level 36.1 10.0 - 40.0 g/mL 12/24/2024 2:16 PM CDT [facility] Blood STRUCTURE OF LEFT UPPER LIMB / Unknown Venipuncture / Unknown 12/24/2024 10:43 AM CDT 12/24/2024 10:47 AM CDT Renae Peters PA-C LAB - BLOOD ORDERABLES Final Result [facility] [place] [facility] [address] [facility], [address] [place] [address], [facility] * Folate (12/24/2024 10:43 AM CDT) Folic Acid 18.4 4.6 - 34.8 ng/mL 12/24/2024 9:02 PM CDT LABORATORY Blood STRUCTURE OF LEFT UPPER LIMB / Unknown Venipuncture / Unknown 12/24/2024 10:43 AM CDT 12/24/2024 10:47 AM CDT Renae Peters PA-C LAB - BLOOD ORDERABLES Final Result LABORATORY [employer] [facility] [employer] [facility] [address] [facility], [address] [phone] * Vitamin B12 (12/24/2024 10:43 AM CDT) Vitamin B12 637 232 - 1,245 pg/mL 12/24/2024 2:31 PM CDT LABORATORY Blood STRUCTURE OF LEFT UPPER LIMB / Unknown Venipuncture / Unknown 12/24/2024 10:43 AM CDT 12/24/2024 10:47 AM CDT Renae Peters PA-C LAB - BLOOD ORDERABLES Final Result Performing Organization Address City/[facility]/ZIP Co de Phone Number LABORATORY [employer] [facility] Lab [address] [facility], [address] [phone] * (ABNORMAL) Ammonia (12/24/2024 10:43 AM CDT) Ammonia 15(L) 16 - 60 umol/L 12/24/2024 11:04 AM CDT [facility] Blood STRUCTURE OF LEFT UPPER LIMB / Unknown Venipuncture / Unknown 12/24/2024 10:43 AM CDT 12/24/2024 10:46 AM CDT Renae HODGES-C LAB - BLOOD ORDERABLES Final Result [facility] [address] [facility]. [address] [place] [address], [facility] * (ABNORMAL) Sodium (12/24/2024 10:43 AM CDT) Sodium 123(L) 135 - 145 mmol/L 12/24/2024 11:04 AM CDT [facility] Blood STRUCTURE OF LEFT UPPER LIMB / Unknown Venipuncture / Unknown 12/24/2024 10:43 AM CDT 12/24/2024 10:47 AM CDT Jt Ge MD LAB - BLOOD ORDERABLES Final R esult [facility] Acute [facility] Lab [address] [facility]. Room # [facility] [place] [address] * (ABNORMAL) Glucose by meter (12/24/2024 7:58 AM CDT) GLUCOSE BY METER POCT 121(H) 70 - 99 mg/dL 12/24/2024 8:06 AM CDT [facility] Comment:Dr/RN Notified Blood, Capillary BLOOD SPECIMEN / Unknown 12/24/2024 7:58 AM CDT 12/24/2024 8:06 AM CDT Jt Ge MD LAB - BEAKER POCT Final Result [facility] [address] [facility]. Room [address] [place] [phone] * (ABNORMAL) Osmolality (12/24/2024 6:54 AM CDT) Osmolality Blood 255(L) 280 - 301 mmol/kg 12/24/2024 1:52 PM CDT [facility] Blood STRUCTURE OF RIGHT UPPER LIMB / Unknown Venipuncture / Unknown 12/24/2024 6:54 AM CDT 12/24/2024 7:11 AM CDT Narrative [facility] - 12/24/2024 1:52 PM CDT Greater than 385 mmol/kg relates to stupor in hyperglycemia Greater than 400 mmol/kg can relate to seizures Greater than 420 mmol/kg can be lethal Serum Osmalar Gap: Normal <10 Larger suggest unmeasured substances present in serum (ethanol, methanol, isopropanol, mannitol, ethylene glycol). us Jt Ge MD LAB - BLOOD ORDERABLES Final R esult [facility] [address] [facility], [address] [place] [phone] * (ABNORMAL) CBC with platelets and differential (12/24/2024 6:54 AM CDT) WBC Count 10.7 4.0 - 11.0 10e3/uL 12/24/2024 7:50 AM CDT [facility] RBC Count 3.94(L) 4.40 - 5.90 10e6/uL 12/24/2024 7:50 AM CDT [facility] Hemoglobin 12.5(L) 13.3 - 17.7 g/dL 12/24/2024 7:50 AM CDT [facility] Hematocrit 35.4(L) 40.0 - 53.0 % 12/24/2024 7:50 AM CDT [facility] MCV 90 78 - 100 fL 12/24/2024 7:50 AM CDT [facility] MCH 31.7 26.5 - 33.0 pg 12/24/2024 7:50 AM CDT [facility] MCHC 35.3 31.5 - 36.5 g/dL 12/24/2024 7:50 AM CDT [facility] RDW 11.9 10.0 - 15.0 % 12/24/2024 7:50 AM CDT [facility] Platelet Count 173 150 - 450 10e3/uL 12/24/2024 7:50 AM CDT [facility] % Neutrophils 86 % 12/24/2024 7:50 AM CDT [facility] % Lymphocytes 7 % 12/24/2024 7:50 AM CDT [facility] % Monocytes 7 % 12/24/2024 7:50 AM CDT [facility] % Eosinophils 0 % 12/24/2024 7:50 AM CDT [facility] % Basophils 0 % 12/24/2024 7:50 AM CDT [facility] % Immature Granulocytes 1 % 12/24/2024 7:[facility] NR[facility]s per 100 WBC 0 <1 /100 025 7:50 AM CDT [facility] Absolute Neutrophils 9.2(H) 1.6 - 8.3 10e3/uL 12/24/2024 7:50 AM CDT [facility] Absolute Lymphocytes 0.7(L) 0.8 - 5.3 10e3/uL 12/24/2024 7:50 AM CDT [facility] Absolute Monocytes 0.7 0.0 - 1.3 10e3/uL 12/24/2024 7:50 AM CDT [facility] Absolute Eosinophils 0.0 0.0 - 0.7 10e3/uL 12/24/2024 7:50 AM CDT [facility] Absolute Basophils 0.0 0.0 - 0.2 10e3/uL 12/24/2024 7:[facility] Absolute Immature Granulocytes 0.1 <=0.4 10e3/uL 12/24/2024 7:50 [facility] Absolute NRBCs 0.0 10e3/uL 12/24/2024 7:50 AM CDT [facility] Blood STRUCTURE OF RIGHT UPPER LIMB / Unknown Venipuncture / Unknown 12/24/2024 6:54 AM CDT 12/24/2024 7:11 AM CDT Ida Carreon MD LAB - BLOOD ORDERABLES Final Result [facility] [address] [facility]. Room [address] [place] [phone] * TSH with free T4 reflex (12/24/2024 6:54 AM CDT) TSH 3.31 0.30 - 4.20 uIU/mL 12/24/2024 7:55 AM CDT [facility] Blood STRUCTURE OF RIGHT UPPER LIMB / Unknown Venipuncture / Unknown 12/24/2024 6:54 AM CDT 12/24/2024 7:11 AM CDT us Ida Carreon MD LAB - BLOOD ORDERABLES Final Result [facility] [address] [facility]. Room [address] [place] [phone] * (ABNORMAL) Comprehensive metabolic panel (12/24/2024 6:54 AM CDT) Sodium 120(L) 135 - 145 mmol/L 12/24/2024 7:43 AM [facility] Potassium 4.2 3.4 - 5.3 mmol/L 12/24/2024 7:43 AM [facility] Carbon Dioxide (CO2) 21(L) 22 - 29 mmol/L 12/24/2024 7:43 AM [facility] Anion Gap 9 7 - 15 mmol/L 12/24/2024 7:43 AM [facility] Urea Nitrogen 12.8 8.0 - 23.0 mg/dL 12/24/2024 7:43 AM [facility] Creatinine 0.84 0.67 - 1.17 mg/dL 12/24/2024 7:43 AM [facility] GFR Estimate 89 >60 mL/min/1.7 3m2 12/24/2024 7:43 AM [facility] Comment:eGFR calculated us2020 CKD-EPI equation. Calcium 8.3(L) 8.8 - 10.4 mg/dL 12/24/2024 7:43 AM [facility] Chloride 90(L) 98 - 107 mmol/L 12/24/2024 7:43 AM [facility] Glucose 117(H) 70 - 99 mg/dL 12/24/2024 7:43 AM [facility] Alkaline Phosphatase 63 40 - 150 U/L 12/24/2024 7:43 AM [facility] AST 25 0 - 45 U/L 12/24/2024 7:43 AM [facility] ALT 14 0 - 70 U/L 12/24/2024 7:43 AM [facility] Protein Total 5.5(L) 6.4 - 8.3 g/dL 12/24/2024 7:43 AM [facility] Albumin 3.6 3.5 - 5.2 g/dL 12/24/2024 7:43 AM CDT [facility] Bilirubin Total 0.7 <=1.2 mg/dL 12/24/2024 7:43 AM CDT [facility] Blood STRUCTURE OF RIGHT UPPER LIMB / Unknown Venipuncture / Unknown 12/24/2024 6:54 AM CDT 12/24/2024 7:11 AM CDT us Ida Carreon MD LAB - BLOOD ORDERABLES Final Result Performing Organization Address City/[facility]/ZIP Co de Phone Number [facility] [address] [place] [address]. Room [address] [place] [phone] * (ABNORMAL) Sodium (12/24/2024 6:54 AM CDT) Sodium 120(L) 135 - 145 mmol/L 12/24/2024 7:43 AM CDT [facility] Blood STRUCTURE OF RIGHT UPPER LIMB / Unknown Venipuncture / Unknown 12/24/2024 6:54 AM CDT 12/24/2024 7:11 AM CDT us Ida Carreon MD LAB - BLOOD ORDERABLES Final Result Performing Organization Address City/[facility]/[place] Co de Phone Number [facility] [address] [place] [address]. Room # [address] [place] [phone] * Osmolality urine (12/24/2024 6:17 AM CDT) Osmolality Urine 705 100 - 1,200 mmol/kg 12/24/2024 1:52 PM CDT [facility] Urine URINE SPECIMEN OBTAINED BY CLEAN CATCH PROCEDURE / Unknown Non-blood Collection / Unknown 12/24/2024 6:17 AM CDT 12/24/2024 6:24 AM CDT Narrative [facility] - 12/24/2024 1:52 PM CDT Reference Ranges depend on patient's hydration status and renal function. Neonates: 75-300 mmol/kg 2 years and older, random specimens: 100-1200 mmol/kg; Greater than 850 mmol/kg after 12 hour fluid restriction Urine/serum osmolality ratio: 2 years and older: 1.0-3.0; 3.0-4.7 after 12 hour fluid restriction Ida Carreon MD LAB - URINE ORDERABLES Final Result [facility]ATORY [facility] [address] [facility], [address] [place] [phone], [facility] * Sodium random urine (12/24/2024 6:17 AM CDT) Sodium Urine mmol/L 22 mmol/L 12/24/2024 6:38 AM CDT [facility] Comment:The reference ranges have not been established in urine sodium. The results should be integrated into the clinical context for interpretation. Urine URINE SPECIMEN OBTAINED BY CLEAN CATCH PROCEDURE / Unknown Non-blood Collection / Unknown 12/24/2024 6:17 AM CDT 12/24/2024 6:24 AM CDT Ida Carreon MD LAB - URINE ORDERABLES Final Result Performing Organization Address [facility] de Phone Number [facility] [address] [place] [address]. Room [address] [place] [phone] * (ABNORMAL) Glucose by meter (12/24/2024 3:54 AM CDT) GLUCOSE BY METER POCT 130(H) 70 - 99 mg/dL 12/24/2024 4:01 AM CDT [facility] Blood, Capillary BLOOD SPECIMEN / Unknown 12/24/2024 3:54 AM CDT 12/24/2024 4:01 AM CDT Ida Carreon MD LAB - BEAKER POCT Final Resul t Performing Organization Address City/[facility]/ZIP Co de Phone Number [facility] [address] [place] [address]. Room # [address] [place] [phone] documented in this encounter Visit Diagnoses Diagnosis Hyponatremia- Primary Hyposmolality and/or hyponatremia Seizure disorder (H) Unspecified epilepsy without mention of intractable epilepsy Encephalopathy Encephalopathy, unspecified documented in this encounter Admitting Diagnoses Diagnosis Hyponatremia Hyposmolality and/or hyponatremia documented in this encounter Administered Medications Active Administered Medications - up to 3 most recent administrations Medication Order MAR Action Action Date Dose Rate Site acetaminophen (TYLENOL) Suppository 650 mg 650 mg, Rectal, EVERY 4 HOURS PRN, mild pain, other, and adjunct with moderate or severe pain or per patient request, Starting on Tue12/24/24 at 0510, Alternate with ibuprofen if ordered. Maximum acetaminophen dose from all sources= 75 mg/kg/day or 4 g/day. acetaminophen (TYLENOL) tablet 650 mg 650 mg, Oral, EVERY 4 HOURS PRN, mild pain, other, and adjunct with moderate or severe pain or per patient request, Starting on Tue12/24/24 at 0510, Alternate with ibuprofen if ordered. Maximum acetaminophen dose from all sources = 75 mg/kg/day not to exceed 4 grams/day. dextrose 5% infusion at 100 mL/hr, Intravenous, CONTINUOUS, Starting on Tue12/25/24 at 2300, Until Discontinued $New Bag 12/25/2024 11:07 PM CDT 100 mL/hr diazepam (VALIUM) injection 5-10 mg 5-10 mg, Intravenous, EVERY 3 MIN PRN, seizures, To use for active seizures only, Starting on Tue12/25/24 at 0618, For 3 doses, 5 to 10 mg as a single dose given at a maximum infusion rate of 5 mg/minute; may repeat at 3- to 5-minute intervals if seizures continue up to a total dose of 30 mg. For active seizures only. This drug may cause significant respiratory depression. Monitor respiratory status and vital signs carefully for 1 hour after each dose. levETIRAcetam (KEPPRA) tablet 500 mg 500 mg, Oral, 2 TIMES DAILY, First dose on Tue12/25/24 at 1999, Take with 750 mg tab BID $Given 12/25/2024 8:43 PM CDT 500 mg levETIRAcetam (KEPPRA) tablet 750 mg 750 mg, Oral, 2 TIMES DAILY, First dose (after last modification) on Tue12/25/24 at 1999, Take with 500 mg tab BID $Given 12/25/2024 8:43 PM CDT 750 mg melatonin tablet 1 mg 1 mg, Oral, AT BEDTIME PRN, sleep, Starting on Tue12/24/24 at 0509, Do not give unless at least 6 hours of uninterrupted sleep is expected. If patient has multiple medications ordered PRN sleep/insomnia, offer melatonin first. $Given 12/24/2024 10:11 PM CDT 1 mg ondansetron (ZOFRAN ODT) ODT tab 4 mg 4 mg, Oral, EVERY 6 HOURS PRN, nausea/vomiting - 1st line, Starting on Tue12/24/24 at 0511, This is Step 1 of nausea and vomiting management. If nausea not resolved in 15 minutes, go to Step 2 prochlorperazine (COMPAZINE). With dry hands, peel back foil backing and gently remove tablet. Do not push oral disintegrating tablet through foil backing. Administer immediately on tongue and oral disintegrating tablet dissolves in seconds, then swallow with saliva. Liquid not required. ondansetron (ZOFRAN) injection 4 mg 4 mg, Intravenous, EVERY 6 HOURS PRN, nausea/vomiting - 1st line, Administer over 2-5 Minutes, Starting on Tue12/24/24 at 0511, Give IF patient unable to tolerate oral medication. This is Step 1 of nausea and vomiting management. If nausea not resolved in 15 minutes, go to Step 2 prochlorperazine (COMPAZINE). OXcarbazepine (TRILEPTAL) tablet 300 mg 300 mg, Oral, EVERY EVENING, First dose on Tue12/25/24 at 2000, Indications: Epilepsy with partial complex seizuresIndications:Epilepsy with partial complex seizures $Given 12/25/2024 8:43 PM CDT 300 mg senna-docusate (SENOKOT-S/PERICOLACE) 8.6-50 MG per tablet 1 tablet 1 tablet, Oral, 2 TIMES DAILY PRN, constipation, Starting on Tue12/24/24 at 0509, If no bowel movement in 24 hours, increase to 2 tablets by mouth. IF more than 1 constipation PRN medication is ordered, administer step-berry as indicated, moving to the next step ONLY if prior step ineffective. Step 1: senna-docusate (SENOKOT-S; PERICOLACE) OR bisacodyl (DULCOLAX) EC tablet Step 2: polyethylene glycol (MIRALAX/GLYCOLAX) Step 3: bisacodyl (DULCOLAX) suppository Step 4: enema Hold for loose stools. senna-docusate (SENOKOT-S/PERICOLACE) 8.6-50 MG per tablet 2 tablet 2 tablet, Oral, 2 TIMES DAILY PRN, constipation, Starting on Tue12/24/24 at 0509, IF more than 1 constipation PRN medication is ordered, administer step-berry as indicated, moving to the next step ONLY if prior step ineffective. Step 1: senna-docusate (SENOKOT-S; PERICOLACE) OR bisacodyl (DULCOLAX) EC tablet Step 2: polyethylene glycol (MIRALAX/GLYCOLAX) Step 3: bisacodyl (DULCOLAX) suppository Step 4: enema Hold for loose stools. sodium chloride (PF) 0.9% PF flush 3 mL 3 mL, Intracatheter, EVERY 8 HOURS, First dose on Tue12/24/24 at 0530, to lock peripheral IV dormant line $Given 12/24/2024 6:17 AM CDT 3 mLs Inactive Administered Medications - up to 3 most recent administrations Medication Order MAR Action Action Date Dose Rate Site levETIRAcetam (KEPPRA) tablet 1,000 mg 1,000 mg, Oral, 2 TIMES DAILY, First dose on Tue12/24/24 at 0630 $Given 12/25/2024 8:03 AM CDT 1,000 mg $Given 12/24/2024 5:59 PM CDT 1,000 mg $Given 12/24/2024 6:17 AM CDT 1,000 mg sodium chloride 0.9 % infusion at 75 mL/hr, Intravenous, CONTINUOUS, Starting on Tue12/24/24 at 0800, Until Tue12/25/24 at 1802 $New Bag 12/25/2024 12:34 PM CDT 75 mL/hr Restarted 12/25/2024 6:16 AM CDT 75 mL/hr $New Bag 12/24/2024 10:15 PM CDT 75 mL/hr documented in this encounter Active and Recently Administered Medications Times are shown in CDT. Scheduled Medication Order 12/24/2024 12/25/2024 12/26/2024 levETIRAcetam (KEPPRA) tablet 1,000 mg (CANCELED) 1,000 mg, Oral, 2 TIMES DAILY, First dose on Tue12/24/24 at 0630 0617 ($Given - Provider: Anabella Church RN)1759 ($Given - Provider: Sierra Saunders RN - Comment: Pt and daughter wanted med to be taken with dinner)1999 (Not Given - Provider: Sierra Saunders RN - Reason: Other - Comment: Administered early per pt and pts daughters preference) 08 ($Given - Provider: Alice Calero RN) levETIRAcetam (KEPPRA) tablet 500 mg 500 mg, Oral, 2 TIMES DAILY, First dose on Tue12/25/24 at 1999, Take with 750 mg tab BID 2042 ($Given - Provider: Tricia Merchant RN) 08 (Due)1999 (Due) levETIRAcetam (KEPPRA) tablet 750 mg 750 mg, Oral, 2 TIMES DAILY, First dose (after last modification) on Tue12/25/24 at 1999, Take with 500 mg tab BID 2042 ($Given - Provider: Tricia Merchant RN) 08 (Due)1999 (Due) OXcarbazepine (TRILEPTAL) tablet 300 mg 300 mg, Oral, EVERY EVENING, First dose on Tue12/25/24 at 1999, Indications: Epilepsy with partial complex seizures 2042 ($Given - Provider: Tricia Merchant RN) 1999 (Due) OXcarbazepine (TRILEPTAL) tablet 450 mg 450 mg, Oral, EVERY MORNING, First dose on Tue12/26/24 at 0800, Indications: Epilepsy with partial complex seizures 0800 (Due) sodium chloride (PF) 0.9% PF flush 3 mL 3 mL, Intracatheter, EVERY 8 HOURS, First dose on Tue12/24/24 at 0530, to lock peripheral IV dormant line 0617 ($Given - Provider: Anabella Church RN)1330 (Not Given - Provider: Sabine Srinivasan RN - Reason: IV Infusing)203 (Not Given - Provider: Maura Drake RN - Reason: IV Infusing) 0530 (Not Given - Provider: Tricia Merchant RN - Reason: IV Infusing)1235 (Not Given - Provider: Alice Calero RN - Reason: IV Infusing)2110 (Not Given - Provider: Tricia Merchant RN - Reason: Other) 0530 (Due)1330 (Due)2130 (Due) Continuous Medication Order 12/24/2024 12/25/2024 12/26/2024 dextrose 5% infusion at 100 mL/hr, Intravenous, CONTINUOUS, Starting on Tue12/25/24 at 2300, Until Discontinued 2307 ($New Bag - Provider: Tricia Merchant RN) sodium chloride 0.9 % infusion (CANCELED) at 75 mL/hr, Intravenous, CONTINUOUS, Starting on Tue12/24/24 at 0800, Until Tue12/25/24 at 1802 0902 ($New Bag - Provider: Sabine Srinivasan RN)1706 ($New Bag - Provider: Maura Drake RN)2215 ($New Bag - Provider: Maura Drake RN) 0518 (Stopped - Provider: Tricia Merchant RN - Comment: IV infiltrated)0616 (Restarted - Provider: Tricia Merchant RN)1234 ($New Bag - Provider: Alice Calero RN)1900 (Stopped - Provider: Alice Calero RN) PRN Medication Order 12/24/2024 12/25/2024 12/26/2024 acetaminophen (TYLENOL) Suppository 650 mg(Linked Group 1) 650 mg, Rectal, EVERY 4 HOURS PRN, mild pain, other, and adjunct with moderate or severe pain or per patient request, Starting on Tue12/24/24 at 0510, Alternate with ibuprofen if ordered. Maximum acetaminophen dose from all sources= 75 mg/kg/day or 4 g/day. acetaminophen (TYLENOL) tablet 650 mg(Linked Group 1) 650 mg, Oral, EVERY 4 HOURS PRN, mild pain, other, and adjunct with moderate or severe pain or per patient request, Starting on Tue12/24/24 at 0510, Alternate with ibuprofen if ordered. Maximum acetaminophen dose from all sources = 75 mg/kg/day not to exceed 4 grams/day. diazepam (VALIUM) injection 5-10 mg 5-10 mg, Intravenous, EVERY 3 MIN PRN, seizures, To use for active seizures only, Starting on Tue12/25/24 at 0618, For 3 doses, 5 to 10 mg as a single dose given at a maximum infusion rate of 5 mg/minute; may repeat at 3- to 5-minute intervals if seizures continue up to a total dose of 30 mg. For active seizures only. This drug may cause significant respiratory depression. Monitor respiratory status and vital signs carefully for 1 hour after each dose. lidocaine (LMX4) kit Topical, EVERY 1 HOUR PRN, pain, with VAD insertion, Starting on Tue12/24/24 at 0509, Apply at least 30 minutes prior to VAD insertion in divided doses as needed for size of site for insertion. MAX Dose: 2.5 g ( of 5 g tube) Do NOT give if patient has a history of allergy to any local anesthetic or any lisandro product. Do NOT use both lidocaine intradermal/subcutaneous injection and the lidocaine cream on the same site. lidocaine 1 % 0.1-1 mL 0.1-1 mL, Other, EVERY 1 HOUR PRN, mild pain with VAD insertion, Starting on Tue12/24/24 at 0509, MAX dose 1 mL subcutaneous OR intradermal along the side of the vein in divided doses as needed for VAD insertion. Do NOT give if patient has a history of allergy to any local anesthetic or any lisandro product. Do NOT use both lidocaine intradermal/subcutaneous injection and the lidocaine cream on the same site. melatonin tablet 1 mg 1 mg, Oral, AT BEDTIME PRN, sleep, Starting on Tue12/24/24 at 0509, Do not give unless at least 6 hours of uninterrupted sleep is expected. If patient has multiple medications ordered PRN sleep/insomnia, offer melatonin first. 2211 ($Given - Provider: Maura Drake RN) ondansetron (ZOFRAN ODT) ODT tab 4 mg(Linked Group 2) 4 mg, Oral, EVERY 6 HOURS PRN, nausea/vomiting - 1st line, Starting on Tue12/24/24 at 0511, This is Step 1 of nausea and vomiting management. If nausea not resolved in 15 minutes, go to Step 2 prochlorperazine (COMPAZINE). With dry hands, peel back foil backing and gently remove tablet. Do not push oral disintegrating tablet through foil backing. Administer immediately on tongue and oral disintegrating tablet dissolves in seconds, then swallow with saliva. Liquid not required. ondansetron (ZOFRAN) injection 4 mg(Linked Group 2) 4 mg, Intravenous, EVERY 6 HOURS PRN, nausea/vomiting - 1st line, Administer over 2-5 Minutes, Starting on Tue12/24/24 at 0511, Give IF patient unable to tolerate oral medication. This is Step 1 of nausea and vomiting management. If nausea not resolved in 15 minutes, go to Step 2 prochlorperazine (COMPAZINE). senna-docusate (SENOKOT-S/PERICOLACE) 8.6-50 MG per tablet 1 tablet(Linked Group 3) 1 tablet, Oral, 2 TIMES DAILY PRN, constipation, Starting on Tue12/24/24 at 0509, If no bowel movement in 24 hours, increase to 2 tablets by mouth. IF more than 1 constipation PRN medication is ordered, administer step-berry as indicated, moving to the next step ONLY if prior step ineffective. Step 1: senna-docusate (SENOKOT-S; PERICOLACE) OR bisacodyl (DULCOLAX) EC tablet Step 2: polyethylene glycol (MIRALAX/GLYCOLAX) Step 3: bisacodyl (DULCOLAX) suppository Step 4: enema Hold for loose stools. senna-docusate (SENOKOT-S/PERICOLACE) 8.6-50 MG per tablet 2 tablet(Linked Group 3) 2 tablet, Oral, 2 TIMES DAILY PRN, constipation, Starting on Tue12/24/24 at 0509, IF more than 1 constipation PRN medication is ordered, administer step-berry as indicated, moving to the next step ONLY if prior step ineffective. Step 1: senna-docusate (SENOKOT-S; PERICOLACE) OR bisacodyl (DULCOLAX) EC tablet Step 2: polyethylene glycol (MIRALAX/GLYCOLAX) Step 3: bisacodyl (DULCOLAX) suppository Step 4: enema Hold for loose stools. sodium chloride (PF) 0.9% PF flush 3 mL 3 mL, Intracatheter, EVERY 1 MIN PRN, line flush, other, to ensure patency or to lock dormant line, Starting on Tue12/24/24 at 0509 Linked Groups Order Group 1: acetaminophen (TYLENOL) tablet 650 mgJump to med 650 mg, Oral, EVERY 4 HOURS PRN, mild pain, other, and adjunct with moderate or severe pain or per patient request, Starting on Tue12/24/24 at 0510, Alternate with ibuprofen if ordered. Maximum acetaminophen dose from all sources = 75 mg/kg/day not to exceed 4 grams/day. Or acetaminophen (TYLENOL) Suppository 650 mgJump to med 650 mg, Rectal, EVERY 4 HOURS PRN, mild pain, other, and adjunct with moderate or severe pain or per patient request, Starting on Tue12/24/24 at 0510, Alternate with ibuprofen if ordered. Maximum acetaminophen dose from all sources= 75 mg/kg/day or 4 g/day. Group 2: ondansetron (ZOFRAN ODT) ODT tab 4 mgJump to med 4 mg, Oral, EVERY 6 HOURS PRN, nausea/vomiting - 1st line, Starting on Tue12/24/24 at 0511, This is Step 1 of nausea and vomiting management. If nausea not resolved in 15 minutes, go to Step 2 prochlorperazine (COMPAZINE). With dry hands, peel back foil backing and gently remove tablet. Do not push oral disintegrating tablet through foil backing. Administer immediately on tongue and oral disintegrating tablet dissolves in seconds, then swallow with saliva. Liquid not required. Or ondansetron (ZOFRAN) injection 4 mgJump to med 4 mg, Intravenous, EVERY 6 HOURS PRN, nausea/vomiting - 1st line, Administer over 2-5 Minutes, Starting on Tue12/24/24 at 0511, Give IF patient unable to tolerate oral medication. This is Step 1 of nausea and vomiting management. If nausea not resolved in 15 minutes, go to Step 2 prochlorperazine (COMPAZINE). Group 3: senna-docusate (SENOKOT-S/PERICOLACE) 8.6-50 MG per tablet 1 tabletJump to med 1 tablet, Oral, 2 TIMES DAILY PRN, constipation, Starting on Tue12/24/24 at 0509, If no bowel movement in 24 hours, increase to 2 tablets by mouth. IF more than 1 constipation PRN medication is ordered, administer step-berry as indicated, moving to the next step ONLY if prior step ineffective. Step 1: senna-docusate (SENOKOT-S; PERICOLACE) OR bisacodyl (DULCOLAX) EC tablet Step 2: polyethylene glycol (MIRALAX/GLYCOLAX) Step 3: bisacodyl (DULCOLAX) suppository Step 4: enema Hold for loose stools. Or senna-docusate (SENOKOT-S/PERICOLACE) 8.6-50 MG per tablet 2 tabletJump to med 2 tablet, Oral, 2 TIMES DAILY PRN, constipation, Starting on Tue12/24/24 at 0509, IF more than 1 constipation PRN medication is ordered, administer step-berry as indicated, moving to the next step ONLY if prior step ineffective. Step 1: senna-docusate (SENOKOT-S; PERICOLACE) OR bisacodyl (DULCOLAX) EC tablet Step 2: polyethylene glycol (MIRALAX/GLYCOLAX) Step 3: bisacodyl (DULCOLAX) suppository Step 4: enema Hold for loose stools. documented in this encounter Care Teams Buggy Man Relationship Specialty Start Date End Date [facility], [place] [id number] PCP - General 12/24/24 documented as of this encounter
--- OUTSIDE RECORDS SUMMARY | 2024-12-24 03:27 | XMS_ITS | Encounter Summary ---
Author Organization [facility] Address [address] [place] [address] Care Team Providers Care Radio Assembler Name Role Phone Clinic, [facility] Primary Care Provider Reason for Visit * Auth/Cert (Routine) Specialty Diagnoses / Procedures Referred By Dale t Referred To Contact Med Surg Diagnoses Hyponatremia Hyponatremia Ida Carreon MD [address] [place] [address] Phone: tel: fax: [facility] [address] [place] [address] Phone: tel: fax: Referral ID Status Reason Start Date Expiration Date Visits Re quested Visits Authorized [id number] 1 1 Encounter Details Date Type Department Care Team (Late st Contact Info) Description 12/24/2024 3:27 AM CDT - Present Hospital Encounter [facility] [address] [place] [phone] Ida Carreon MD [address] [place] [address] Jt Ge MD [address] [place], [place] [id number] Stefano Saez MD [address] [place], [place] [phone] Social History Tobacco Use Types Packs/Day Years [...] in an abandoned building, in an overnight retirement, or couch-surfing.) Yes 12/24/2024 Are you worried [...] on file Legal Sex Male 4:14 AM [facility] Gender Identity Not on file Sexual Orientation Not on file documented as of this encounter Last Filed Vital Signs Vital Sign Reading Time Taken Comments Blood Pressure 135/67 12/25/2024 3:38 PM CDT Pulse 64 12/25/2024 3:38 PM CDT Temperature 36.8 C (98.2 F) 12/24/2024 8:16 PM CDT Respiratory Rate 16 12/25/2024 3:38 PM CDT Oxygen Saturation 96% 12/25/2024 3:38 PM CDT Inhaled Oxygen Concentration - - Weight 76.7 kg (169 lb 1.5 oz) 12/25/2024 7:52 A M CDT Height 185.4 cm (6' 1) 12/24/2024 3:45 AM CDT Body Mass Index 22.31 12/24/2024 3:45 AM CDT documented in this encounter Progress Notes * Sabine Srinivasan RN - 12/24/2024 4:24 [...] Intact LDAs: PIV RFA Report given to Med Shawna RN for transfer of care. * Sabine Srinivasan RN - 12/24/2024 4:17 PM CDT Radio Station Engineer was able to fax release of information statement to [facility] [phone] to obtain medical records. [facility] phone number [phone]. Daughter is at bedside with patient giving consent to release information. * Sabine Srinivasan RN - 12/24/2024 8:17 AM CDT Radio Station Engineer noted bed alarm sounding, patient was ambulating around room, had taken his PIV out, blood was trailed from bed to sink to bathroom. Patient was unaware what happened, kept looking at his arm wondering how he started bleeding. Radio Station Engineer was able to clean up LUE FA and noted 18G PIV sitting on his bedside table. Patient states, what's that. Was unaware it came from his arm. Radio Station Engineer had to repeat several times on how he became to [facility] from [facility]. Unaware he has seizures. Patient had his cell phone in his hand stating he did not know how to call his daughter, then once aligner typewriter assisted patient was able to call Gabriella [...] diet for health reasons recently. Update to dissolver operator/ MD Ge. * Renae Peters PA-C - 12/24/2024 7:33 AM CDT [facility] Medicine Progress Note - Hospitalist Service [...] to exceed 126 by 7 am on 24 - Urine osmolality and serum osmolality pending [...] prescribed by neurologist Dr. Angelica Johnson at [facility], will attempt to obtain records. [...] Nurse, andPatient. Renae Peters PA-C Hospitalist Service [facility] Securely message with [employer] (more info) Text page via [facility] Paging/Directory Interval History Patient remains confused, [...] yearis 2004 or 2005. 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 Cranial nerves are grossly intact. Cage Loader is symmetric. Gross strength and sensation are [...] Javier Scott as part of a shared PERSONAL CARER/PA visit. I personally reviewed the vital signs, [...] Church RN - 12/24/2024 3:50 AM CDT [facility] ADMISSION NOTE Patient admitted to room 1008 [...] band applied: YES. Skin Initial Assessment This aligner typewriter admitted this patient and completed a full skin assessment and Evan score in the Adult PCS flowsheet. Photo documentation of skin problem and/or wound competed via [employer] application (located under [employer]spireSubmit): N/A Appropriate interventions initiated as needed. Secondary skin check completed by Nick ELKINS. Education Patient has a [place] to Observation order: Yes Observation education completed and documented: Yes Anabella Church RN documented in this encounter H&P Notes * Ida Carreon MD - 12/24/2024 4:35 AM CDT HOSPITALIST TELEMED ADMISSION H&P Service Date : 12/24/2024 Dr. Lauri Moser am located in [place]. Javier Scott is located in [place] at [facility]. The RN or tech on duty [...] guess. Per my d/w ER MD at [facility], family brought him into the ER due [...] Miscellaneous Notes * Plan of Care - Tricia Merchant RN - 12/25/2024 4:53 AM CDT Goal Outcome Evaluation: Plan of Care Reviewed With: patient Overall Patient Progress: improvingOverall Patient Progress: improving Patient is alert to self and place (knew he was in the hospital but thought he was in [place]). Denying pain. IV infusing with Na checks every 6 hours, last Na was 127 at 0430am. Patient has been cooperative but very forgetful. Patient frequently asking what is this helping to do how did I get here and why am I here. Denying pain. Up with stand by assist to ambulate to the bathroom. Seizure precautions and 1:[address], no seizure activity noted on this shift. Time cared for patient 2330 to 0730. * Plan of Care - Maura Drake RN - 12/24/2024 8:40 PM CDT Problem: Risk for Delirium Goal: Optimal Coping Outcome: Progressing Goal: Improved Behavioral Control Outcome: Progressing Intervention: Minimize Safety Risk Recent Flowsheet Documentation Taken 12/24/2024 1714 by Maura Drake RN Enhanced Safety Measures: review medications for [...] Medication Scribe - Admission Medication History - Dewayne Chikis - 12/24/2024 10:44 AM CDT Medication Scribe Admission Medication History Admission medication history is complete. The information provided in this note is only as accurateas the sources available at the time of the update. Information Source(s): Family member, Patient's pharmacy, and [facility] via phone Pertinent Information: Spoke with his daughter Zuleyka by cell phone [phone]. Also, with [facility] [place] by phone. Per [facility], [place], he has not filled the Lamotrigine since 2021. Daughter saw no bottlesof that at patient's home. She did find Oxcarbazepine 300 mg with fill date of 12/16/24, (which [facility] verified). Levetiracetam 750 mg bid last filled 12/17/24. (which [facility] verified). [facility] also stated that patient had an order [...] had medicines in them. 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 Deleted: None Changed: None Allergies reviewed with patient and updates made in EHR: no, patient is confused at this time. Medication History Completed By: Chikis Buchanan 12/24/2024 10:44 AM FLATBED TRUCK DRIVER Med List Medication Sig Last Dose/Taking levETIRAcetam [...] for 1 Occurrences starting 12/24/2024 until 12/24/2024 Sodium Lab Timed Every 6hr unti l discontinued starting 12/24/2024, 3 completed documented as of this encounter Procedures * The patient is currently admitted. The information in this section might not be complete until the patient is discharged. Procedure Name Priority Date/Time Associated Diagnosis Comments SODIUM Timed 12/25/2024 2:28 PM CDT EXTRA [...] CDT documented in this encounter Results * (ABNORMAL) Sodium (12/25/2024 2:28 PM CDT) Sodium 133(L) 135 - 145 mmol/L 12/25/2024 3:48 PM CDT [facility] Blood BLOOD SPECIMEN / Unknown Venipuncture / Unknown 12/25/2024 2:28 PM CDT 12/25/2024 2:31 PM CDT us Jt Ge MD LAB - BLOOD ORDERABLES Final R esult [facility] Acute [facility] Lab [address] [facility]. Room [address] [place] [address] * Extra Purple Top Tube (12/25/2024 8:34 AM CDT) Hold Specimen JIC 12/25/2024 9:46 AM CDT [facility] Blood STRUCTURE OF RIGHT UPPER LIMB / Unknown Venipuncture / Unknown 12/25/2024 8:34 AM CDT 12/25/2024 8:38 AM CDT Stefano Saez MD LAB - BLOOD ORDERABLES Fi nal Result Performing Organization Address City/[facility]/ZIP Co de Phone Number [facility] Acute Care Lab [address] [place] [address]. Room # [address] [place] [address] * (ABNORMAL) Sodium (12/25/2024 8:34 AM CDT) Sodium 126(L) 135 - 145 mmol/L 12/25/2024 8:59 AM CDT [facility] Blood STRUCTURE OF RIGHT UPPER LIMB / Unknown Venipuncture / Unknown 12/25/2024 8:34 AM CDT 12/25/2024 8:37 AM CDT Jt Ge MD LAB - BLOOD ORDERABLES Final R esult Performing Organization Address [facility] Co de Phone Number [facility] Care [facility] [address] [place] [address]. Room # [facility] [place] [address] * (ABNORMAL) Basic metabolic panel (12/25/2024 3:05 AM CDT) Sodium 127(L) 135 - 145 mmol/L 12/25/2024 3:46 AM CDT [facility] Potassium 4.6 3.4 - 5.3 mmol/L 12/25/2024 3:46 AM CDT [facility] Chloride 96(L) 98 - 107 mmol/L 12/25/2024 3:46 AM CDT [facility] Carbon Dioxide (CO2) 20(L) 22 - 29 mmol/L 12/25/2024 3:46 AM CDT [facility] Anion Gap 11 7 - 15 mmol/L 12/25/2024 3:46 AM CDT [facility] Urea Nitrogen 16.7 8.0 - 23.0 mg/dL 12/25/2024 3:46 AM CDT [facility] Creatinine 0.87 0.67 - 1.17 mg/dL 12/25/2024 3:46 AM CDT [facility] GFR Estimate 88 >60 mL/min/1.7 3m2 12/25/2024 3:46 AM CDT [facility] Comment:eGFR calculated 2020 CKD-EPI equation. Calcium 8.5(L) 8.8 - 10.4 mg/dL 12/25/2024 3:46 AM CDT [facility] Glucose 133(H) 70 - 99 mg/dL 12/25/2024 3:46 AM [facility] Blood STRUCTURE OF RIGHT UPPER LIMB / Unknown Venipuncture / Unknown 12/25/2024 3:05 AM CDT 12/25/2024 3:27 AM CDT Jt Ge MD LAB - BLOOD ORDERABLES Final R esult [facility] Lab [address]. Room [address] [place] [address] * (ABNORMAL) CBC with platelets (12/25/2024 3:05 AM CDT) WBC Count 11.8(H) 4.0 - 11.0 10e3/uL 12/25/2024 3:30 AM [facility] RBC Count 4.13(L) 4.40 - 5.90 10e6/uL 12/25/2024 3:30 AM CDT [facility] Hemoglobin 13.0(L) 13.3 - 17.7 g/dL 12/25/2024 3:30 AM CDT [facility] Hematocrit 36.9(L) 40.0 - 53.0 % 12/25/2024 3:30 AM T [facility] MCV 89 78 - 100 fL 12/25/2024 3:30 AM T [facility] MCH 31.5 26.5 - 33.0 pg 12/25/2024 3:30 AM CDT [facility] MCHC 35.2 31.5 - 36.5 g/dL 12/25/2024 3:30 AM CDT [facility] RDW 12.0 10.0 - 15.0 % 12/25/2024 3:30 AM CDT [facility] Platelet Count 182 150 - 450 10e3/uL 12/25/2024 3:30 AM CDT [facility] Blood STRUCTURE OF RIGHT UPPER LIMB / Unknown Venipuncture / Unknown 12/25/2024 3:05 AM CDT 12/25/2024 3:27 AM CDT us Jt Ge MD LAB - BLOOD ORDERABLES Final R esult Performing Organization Address City/[facility] de Phone Number [facility] Acute Care Lab [address] [place] [address]. Room # [address] [place] [phone] * (ABNORMAL) Sodium (12/24/2024 8:30 PM CDT) Sodium 125(L) 135 - 145 mmol/L 12/24/2024 8:46 PM CDT [facility] Blood STRUCTURE OF LEFT UPPER LIMB / Unknown Venipuncture / Unknown 12/24/2024 8:30 PM CDT 12/24/2024 8:33 PM CDT Jt Ge MD LAB - BLOOD ORDERABLES Final R esult Performing Organization Address City/[facility] Co de Phone Number [facility] Lab [address] [place] [address]. Room # [address] [place] [phone] * (ABNORMAL) Sodium (12/24/2024 2:32 PM CDT) Sodium 123(L) 135 - 145 mmol/L 12/24/2024 2:59 PM CDT [facility] Blood STRUCTURE OF LEFT UPPER LIMB / Unknown Venipuncture / Unknown 12/24/2024 2:32 PM CDT 12/24/2024 2:42 PM CDT Jt Ge MD LAB - BLOOD ORDERABLES Final R esult [facility] Lab [address] [facility]. Room [address] [place] [address] * Treponema Abs w Reflex to RPR and Titer (12/24/2024 10:43 AM CDT) Treponema Antibody Total Nonreactive Nonreactive 12/24/2024 4:27 PM CDT [facility] Blood STRUCTURE OF LEFT UPPER LIMB / Unknown Venipuncture / Unknown 12/24/2024 10:43 AM CDT 12/24/2024 10:47 AM CDT Renae Peters PA-C LAB - BLOOD ORDERABLES Final Result SPECIALTY CORE/PROT/ENDO [facility]/Prot/Endo [address] [facility][1], Room [address] [facility] Specialty Lab [address] [facility][1], [address] [address], [place] * (ABNORMAL) Lamotrigine Level (12/24/2024 10:43 AM CDT) Lamotrigine <0.9(L) 3.0 - 15.0 ug/mL 12/25/2024 3:16 PM CDT [facility] Comment: INTERPRETIVE INFORMATION: Lamotrigine Therapeutic Range: 3.0-15.0 ug/mL Toxic: Greater than or equal to 20 ug/mL Pharmacokinetics varies widely, particularly with co-medications and/or compromised renal function. Adverse effects may include dizziness, somnolence, nausea and vomiting. Performed By: [employer] [address] [place] [address] Language Specialist: Tacos Velasquez MD, PhD CLIA Number: [id number] Blood STRUCTURE OF LEFT UPPER LIMB / Unknown Venipuncture / Unknown 12/24/2024 10:43 AM CDT 12/24/2024 10:47 AM CDT us Renae Peters PA-C LAB - BLOOD ORDERABLES Final Result [facility] [address] [place] [address], [facility] [phone] * Keppra (Levetiracetam) Level (12/24/2024 10:43 AM CDT) [facility] Keppra (Levetiracetam) Level 36.1 10.0 - 40.0 g/mL 12/24/2024 2:16 PM CDT [facility] Blood STRUCTURE OF LEFT UPPER LIMB / Unknown Venipuncture / Unknown 12/24/2024 10:43 AM CDT 12/24/2024 10:47 AM CDT us Renae Peters PA-C LAB - BLOOD ORDERABLES Final Result LABORATORY [facility] [address] [facility], [address] * Folate (12/24/2024 10:43 AM CDT) [facility] Folic Acid 18.4 4.6 - 34.8 ng/mL 12/24/2024 9:02 PM CDT [facility] Blood STRUCTURE OF LEFT UPPER LIMB / Unknown Venipuncture / Unknown 12/24/2024 10:43 AM CDT 12/24/2024 10:47 AM CDT Renae Peters PA-C LAB - BLOOD ORDERABLES Final Result [facility] [address] [facility], [address] * Vitamin B12 (12/24/2024 10:43 AM CDT) Vitamin B12 637 232 - 1,245 pg/mL 12/24/2024 2:31 PM CDT LABORATORY Blood STRUCTURE OF LEFT UPPER LIMB / Unknown Venipuncture / Unknown 12/24/2024 10:43 AM CDT 12/24/2024 10:47 AM CDT us Renae Peters PA-C LAB - BLOOD ORDERABLES Final Result [facility] [address] [facility], [address] [place] [address] * (ABNORMAL) Ammonia (12/24/2024 10:43 AM CDT) Ammonia 15(L) 16 - 60 umol/L 12/24/2024 11:04 AM CDT [facility] Blood STRUCTURE OF LEFT UPPER LIMB / Unknown Venipuncture / Unknown 12/24/2024 10:43 AM CDT 12/24/2024 10:46 AM CDT Renae Peters PA-C LAB - BLOOD ORDERABLES Final Result Performing Organization Address City/[facility] de Phone Number [facility] Acute Care Lab [address] [place] [address]. Room # [address] [place] [address], [facility] * (ABNORMAL) Sodium (12/24/2024 10:43 AM CDT) Sodium 123(L) 135 - 145 mmol/L 12/24/2024 11:04 AM CDT [facility] Blood STRUCTURE OF LEFT UPPER LIMB / Unknown Venipuncture / Unknown 12/24/2024 10:43 AM CDT 12/24/2024 10:47 AM CDT Jt Ge MD LAB - BLOOD ORDERABLES Final R esult [facility] Acute [facility] Lab [address] [place] [address]. [address] [place] [address] * (ABNORMAL) Glucose by meter (12/24/2024 7:58 AM CDT) GLUCOSE BY METER POCT 121(H) 70 - 99 mg/dL 12/24/2024 8:06 AM CDT [facility] Comment:Dr/RN Notified Blood, Capillary BLOOD SPECIMEN / Unknown 12/24/2024 7:58 AM CDT 12/24/2024 8:06 AM CDT Jt Ge MD LAB - BEAKER POCT Final Result [facility] Acute Care Lab [address] [facility] [address]. Room [address] [place] [address] * (ABNORMAL) Osmolality (12/24/2024 6:54 AM CDT) Pathologist [facility] Osmolality Blood 255(L) 280 - 301 mmol/kg 12/24/2024 1:52 PM CDT LABORATORY Blood STRUCTURE OF RIGHT UPPER LIMB / Unknown Venipuncture / Unknown 12/24/2024 6:54 AM CDT 12/24/2024 7:11 AM CDT Narrative LABORATORY - 12/24/2024 1:52 PM CDT Greater than 385 mmol/kg relates to stupor in hyperglycemia Greater than 400 mmol/kg can relate to seizures Greater than 420 mmol/kg can be lethal Serum Osmalar Gap: Normal <10 Larger suggest unmeasured substances present in serum (ethanol, methanol, isopropanol, mannitol, ethylene glycol). Jt Ge MD LAB - BLOOD ORDERABLES Final R esult [facility] [address] [facility], [address] [place] [address], [facility] * (ABNORMAL) CBC with platelets and differential (12/24/2024 6:54 AM CDT) WBC Count 10.7 4.0 - 11.0 10e3/uL 12/24/2024 7:50 AM CDT [facility] RBC Count 3.94(L) 4.40 - 5.90 10e6/uL 12/24/2024 7:50 AM CDT [facility] Hemoglobin 12.5(L) 13.3 - 17.7 g/dL 12/24/2024 7:50 AM CDT [facility] Hematocrit 35.4(L) 40.0 - 53.0 % 12/24/2024 7:50 AM CDT [facility] MCV 90 78 - 100 fL 12/24/2024 7:50 AM CDT [facility] MCH 31.7 26.5 - 33.0 pg 12/24/2024 7:50 AM CDT [facility] MCHC 35.3 31.5 - 36.5 g/dL 12/24/2024 7:50 AM CDT [facility] RDW 11.9 10.0 - 15.0 % 12/24/2024 7:50 AM CDT [facility] Platelet Count 173 150 - 450 10e3/uL 12/24/2024 7:50 AM CDT [facility] % Neutrophils 86 % 12/24/2024 7:50 AM CDT [facility] % Lymphocytes 7 % 12/24/2024 7:50 AM CDT [facility] % Monocytes 7 % 12/24/2024 7:50 AM CDT [facility] % Eosinophils 0 % 12/24/2024 7:50 AM CDT [facility] % Basophils 0 % 12/24/2024 7:50 AM CDT [facility] % Immature Granulocytes 1 % 12/24/2024 7:50 AM CDT [facility] NRBCs per 100 WBC 0 <1 /100 025 7:50 AM CDT [facility] Absolute Neutrophils 9.2(H) 1.6 - 8.3 10e3/uL 12/24/2024 7:50 AM CDT [facility] Absolute Lymphocytes 0.7(L) 0.8 - 5.3 10e3/uL 12/24/2024 7:50 AM CDT [facility] Absolute Monocytes 0.7 0.0 - 1.3 10e3/uL 12/24/2024 7:50 AM CDT [facility] Absolute Eosinophils 0.0 0.0 - 0.7 10e3/uL 12/24/2024 7:50 AM CDT [facility] Absolute Basophils 0.0 0.0 - 0.2 10e3/uL 12/24/2024 7:50 AM CDT [facility] Absolute Immature Granulocytes 0.1 <=0.4 10e3/uL 12/24/2024 7:50 AM CDT [facility] Absolute NRBCs 0.0 10e3/uL 12/24/2024 7:50 AM CDT [facility] Blood STRUCTURE OF RIGHT UPPER LIMB / Unknown Venipuncture / Unknown 12/24/2024 6:54 AM CDT 12/24/2024 7:11 AM CDT us Ida Carreon MD LAB - BLOOD ORDERABLES Final Result Performing Organization Address City/[facility] de Phone Number [facility] Acute Care Lab [address] [place] [address]. Room # [address] [place] [phone] * TSH with free T4 reflex (12/24/2024 6:54 AM CDT) Pathologist [facility] TSH 3.31 0.30 - 4.20 uIU/mL 12/24/2024 7:55 AM CDT [facility] Blood STRUCTURE OF RIGHT UPPER LIMB / Unknown Venipuncture / Unknown 12/24/2024 6:54 AM CDT 12/24/2024 7:11 AM CDT us Ida Carreon MD LAB - BLOOD ORDERABLES Final Result Performing Organization Address City/[facility]/ZIP Co de Phone Number [facility] Acute Care Lab [address] [place] [address]. Room # [address] [place] [phone] * (ABNORMAL) Comprehensive metabolic panel (12/24/2024 6:54 AM CDT) Sodium 120(L) 135 - 145 mmol/L 12/24/2024 7:43 AM CDT [facility] Potassium 4.2 3.4 - 5.3 mmol/L 12/24/2024 7:43 AM CDT [facility] Carbon Dioxide (CO2) 21(L) 22 - 29 mmol/L 12/24/2024 7:43 AM [facility] Anion Gap 9 7 - 15 mmol/L 12/24/2024 7:43 AM [facility] Urea Nitrogen 12.8 8.0 - 23.0 mg/dL 12/24/2024 7:43 AM [facility] Creatinine 0.84 0.67 - 1.17 mg/dL 12/24/2024 7:43 AM [facility] GFR Estimate 89 >60 mL/min/1.7 3m2 12/24/2024 7:43 AM [facility] Comment:eGFR calculated 2020 CKD-EPI equation. Calcium 8.3(L) 8.8 - 10.4 mg/dL 12/24/2024 7:43 AM [facility] Chloride 90(L) 98 - 107 mmol/L 12/24/2024 7:43 AM [facility] Glucose 117(H) 70 - 99 mg/dL 12/24/2024 7:43 AM [facility] Alkaline Phosphatase 63 40 - 150 U/L 12/24/2024 7:43 AM [facility] AST 25 0 - 45 U/L 12/24/2024 7:43 AM [facility] ALT 14 0 - 70 U/L 12/24/2024 7:43 AM [facility] Protein Total 5.5(L) 6.4 - 8.3 g/dL 12/24/2024 7:43 AM [facility] Albumin 3.6 3.5 - 5.2 g/dL 12/24/2024 7:43 AM [facility] Bilirubin Total 0.7 <=1.2 mg/dL 12/24/2024 7:43 AM [facility] Blood STRUCTURE OF RIGHT UPPER LIMB / Unknown Venipuncture / Unknown 12/24/2024 6:54 AM CDT 12/24/2024 7:11 AM T Ida Carreon MD LAB - BLOOD ORDERABLES Final Result [facility] Acute [facility] Lab [address]. [address] [place] [address] * (ABNORMAL) Sodium (12/24/2024 6:54 AM CDT) Sodium 120(L) 135 - 145 mmol/L 12/24/2024 7:43 AM CDT [facility] Blood STRUCTURE OF RIGHT UPPER LIMB / Unknown Venipuncture / Unknown 12/24/2024 6:54 AM CDT 12/24/2024 7:11 AM CDT Ida Carreon MD LAB - BLOOD ORDERABLES Final Result [facility] Lab [address] [place] [address] * Osmolality urine (12/24/2024 6:17 AM CDT) Osmolality Urine 705 100 - 1,200 mmol/kg 12/24/2024 1:52 PM CDT [facility] Urine URINE SPECIMEN OBTAINED BY CLEAN CATCH PROCEDURE / Unknown Non-blood Collection / Unknown 12/24/2024 6:17 AM CDT 12/24/2024 6:24 AM CDT Narrative LABORATORY - 12/24/2024 1:52 PM CDT Reference Ranges depend on patient's hydration status and renal function. Neonates: 75-300 mmol/kg 2 years and older, random specimens: 100-1200 mmol/kg; Greater than 850 mmol/kg after 12 hour fluid restriction Urine/serum osmolality ratio: 2 years and older: 1.0-3.0; 3.0-4.7 after 12 hour fluid restriction Ida Carreon MD LAB - URINE ORDERABLES Final Result [facility] [address] [facility], [address] [place] [address] * Sodium random urine (12/24/2024 6:17 AM CDT) Sodium Urine mmol/L 22 mmol/L 12/24/2024 6:38 AM CDT [facility] Comment:The reference ranges have not been established in urine sodium. The results should be integrated into the clinical context for interpretation. Urine URINE SPECIMEN OBTAINED BY CLEAN CATCH PROCEDURE / Unknown Non-blood Collection / Unknown 12/24/2024 6:17 AM CDT 12/24/2024 6:24 AM CDT Ida Carreon MD LAB - URINE ORDERABLES Final Result Performing Organization Address City/[facility] de Phone Number [facility] Acute [facility] Lab [address] [place] [address]. Room # [address] [place] [phone] * (ABNORMAL) Glucose by meter (12/24/2024 3:54 AM CDT) [facility] Signature GLUCOSE BY METER POCT 130(H) 70 - 99 mg/dL 12/24/2024 4:01 AM CDT [facility] POC Blood, Capillary BLOOD SPECIMEN / Unknown 12/24/2024 3:54 AM CDT 12/24/2024 4:01 AM CDT Ida Carreon MD LAB - BEAKER POCT Final Resul t Performing Organization Address [facility] de Phone Number [facility] Acute Care Lab [address] [place] [address]. Room # [address] [place] [phone] documented in this encounter Visit Diagnoses Diagnosis [...] pain or per patient request, Starting on 12/24/24 at 0510, Alternate with ibuprofen if ordered. [...] hour after each dose. levETIRAcetam (KEPPRA) tablet 1,000 mg 1,000 mg, Oral, 2 TIMES DAILY, First dose on Tue12/24/24 at 0630 $Given 12/25/2024 8:03 AM CDT 1,000 mg $Given 12/24/2024 5:59 PM CDT 1,000 mg $Given 12/24/2024 6:17 AM CDT 1,000 mg melatonin tablet 1 mg 1 mg, [...] $Given 12/24/2024 6:17 AM CDT 3 mLs sodium chloride 0.9 % infusion at 75 mL/hr, Intravenous, CONTINUOUS, Starting on Tue12/24/24 at 0800, Until Discontinued $New Bag 12/25/2024 12:34 PM CDT 75 mL/hr Restarted 12/25/2024 6:16 AM CDT 75 mL/hr $New Bag 12/24/2024 10:15 PM CDT 75 mL/hr documented in this encounter Active and Recently Administered Medications Times are shown in CDT. Scheduled Medication Order 12/23/2024 12/24/2024 12/25/2024 levETIRAcetam (KEPPRA) tablet 1,000 mg 1,000 mg, Oral, 2 TIMES DAILY, First dose on Tue12/24/24 at 0630 0617 ($Given - Provider: Anabella Church RN)1759 ($Given - Provider: Sierra Saunders RN - Comment: Pt and daughter wanted med to be taken with dinner)1999 (Not Given - Provider: Sierra Saunders RN - Reason: Other - Comment: Administered early per pt and pts daughters preference) 0803 ($Given - Provider: Alice Calero, SEVERO)1999 (Due) sodium chloride (PF) 0.9% PF flush 3 mL 3 mL, Intracatheter, EVERY 8 HOURS, First dose on Tue12/24/24 at 0530, to lock peripheral IV dormant line 0617 ($Given - Provider: Anabella Church RN)1330 (Not Given - Provider: Sabine Srinivasan RN - Reason: IV Infusing)2039 (Not Given - Provider: Maura Drake RN - Reason: IV Infusing) 0530 (Not Given - Provider: Tricia Merchant RN - Reason: IV Infusing)1235 (Not Given - Provider: Alice Calero, SEVERO - Reason: IV Infusing)213 (Due) Continuous Medication Order 12/23/2024 12/24/2024 12/25/2024 sodium chloride 0.9 % infusion at 75 mL/hr, Intravenous, CONTINUOUS, Starting on Tue12/24/24 at 0800, Until Discontinued 0902 ($New Bag - Provider: Sabine Srinivasan RN)1706 ($New Bag - Provider: Maura Drake, SEVERO)2215 ($New Bag - Provider: Maura Drake, SEVERO) 0518 (Stopped - Provider: Tricia Merchant RN - Comment: IV infiltrated)0616 (Restarted - Provider: Tricia Merchant, RN)3804 ($New Bag - Provider: Alice Calero RN) PRN Medication Order 12/23/2024 12/24/2024 12/25/2024 acetaminophen (TYLENOL) Suppository 650 mg(Linked Group 1) [...] stools. documented in this encounter Care Teams Radio Assembler Relationship Specialty Start Date End Date [facility], [address] [address] PCP - General 12/24/24 documented as of this encounter
--- OUTSIDE RECORDS SUMMARY | 2024-12-25 16:19 | XMS_ITS | Clinical Summary ---
Author Organization [employer] [facility] Address [address] [place] [address] Care Team Providers Care Parts Salvager Name Role Phone VotelMax MD Primary Care [...] Encounters Date Type Department Care Team Description 12/23/2024 Orders Only [facility] Scanner 1 scan: (1-Ord) [facility], CT HEAD/BRAIN WO CON, 12/23/2024 12/23/2024 Orders Only [facility] Scanner 1 scan: (1-Ord) [facility], CHEST 2VIEWS, 12/23/2024 11/14/2024 10:25 AM CDT Office Visit [facility] [address] [place] [address] Votel, Max Ortega MD Medicare ANNUAL (subsequent) Visit (79 year old male) 11/13/2024 Travel from Last 3 Months Immunizations Immunization Administration Dates Next Due COVID-19 vaccine (Moderna 10 0mcg/0.5mL) MAGDALENA KNOTT 05/06/2021,09/19/2020,08/22/2020 COVID-19 vaccine (Pfizer-Bio NTech 30mcg/0.3mL) 12YO+ LAQUITA-SUCROSE MAGDALENA KNOTT 11/02/2021 [...] on file 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 Gender Identity Not on file Sexual Orientation [...] Additional history exists Tetanus booster 09/04/2027 09/03/2017, 11/2005, 04/07/2006, Additional history exists Tdap Completed 09/03/2017, 0 11/2005, 12/19/1995 Zoster (shingles) series for age 50+ Completed 06/29/2021, 04/28/2021 Hepatitis C screening for age 18-79 Completed 11/02/2021 Pneumococcal series for age 50+ Completed 11/04/2022 Hepatitis B series for 19+ Aged Out N o longer eligible based on patient's age to complete this topic Procedures Procedure Name Priority Date/Time Associated Diagnosis Comments SCAN-CT INTERPRETATION 12:00 AM CDT SCAN-RADIOLOGY REPORT 12/23/2024 12:00 AM CDT CBC WITH AUTO DIFFERENTIAL Routine 11/14/2024 11:04 AM CDT Medicare annual wellness visit, subsequent ALT (SGPT) Routine 11/14/2024 11:04 AM CDT Lipid screening BASIC METABOLIC PANEL Routine 11/14/2024 11:04 AM CDT Epilepsy with partial complex seizures (HC) ANTI HCV Routine 11/02/2021 10:22 AM CDT Need for hepatitis C screening test from Last 3 Months or Most Recently Relevant to Health Maintenance Results * SCAN-RADIOLOGY REPORT (12/23/2024 12:00 AM CDT) Anatomical Region Laterality Modality Other us Scanner OTHER Final Result * SCAN-CT INTERPRETATION (12/23/2024 12:00 AM CDT) Anatomical Region Laterality Modality Other us Scanner OTHER Final Result * (ABNORMAL) CBC AND DIFFERENTIAL (11/14/2024 11:04 AM CDT) WHITE BLOOD CELL COUNT 5.8 3.8 - [...] 11/14/2024 11:05 AM CDT Max Burns MD HEMATOLOGY Final Re sult [facility] [address] [facility] [place] [address], [place] [phone] [facility] [address] [facility] [place] [address] * ALT (SGPT) (11/14/2024 11:04 AM CDT) Pathologist [facility] ALT 12 9 - 46 U/L [facility] Blood BLOOD SPECIMEN / Unknown 11/14/2024 11:04 AM CDT 11/14/2024 11:05 AM CDT Max Burns MD CHEMISTRY Final Re sult [employer] [facility] [address] [facility] [place] [address], [place] [phone] [facility] [address] [place] [address] * BASIC METABOLIC PANEL (11/14/2024 11:04 AM CDT) Pathologist [facility] GLUCOSE 94 65 - 99 mg/dL [facility] Comment: Fasting reference interval UREA NITROGEN (BUN) 13 7 - 25 mg/dL [facility] CREATININE 1.12 0.70 - 1.28 mg/dL [facility] EGFR 67 > OR = 60 mL/min/1. 73m2 [facility] BUN/CREATININE RATIO SEE NOTE: 6 - 22 (calc) [facility] Comment: Not Reported: BUN and Creatinine are within reference range. SODIUM 139 135 - 146 mmol/L [facility] POTASSIUM 4.4 3.5 - 5.3 mmol/L [facility] CHLORIDE 100 98 - 110 mmol/L [facility] CARBON DIOXIDE 30 20 - 32 mmol/L [facility] ELECTROLYTE BALANCE 9 7 - 17 mmol/L (calc) [facility] CALCIUM 9.8 8.6 - 10.3 mg/dL [facility] Arboledae Blood BLOOD SPECIMEN / Unknown 11/14/2024 11:04 AM CDT 11/14/2024 11:05 AM CDT Max Burns MD CHEMISTRY Final Re sult [employer] [facility] [address] [place] [address], [facility] [address] * ANTI HCV (11/02/2021 10:22 AM CDT) Pathologist [facility] HEPATITIS C ANTIBODY Non-React casi Non-React casi 11/02/2021 6:53 PM CDT [facility] Comment:Antibodies to HCV no t detected; does not exclude the possibility of exposure to HCV. Blood BLOOD SPECIMEN / Unknown Venipuncture / Unknown 11/02/2021 10:22 AM CDT 11/02/2021 10:23 AM CDT us Brittany Perez DO SEND OUTS Final Result [facility] [address] [place] [address], [place] from Last 3 Months or Most Recently Relevant to Health Maintenance Insurance [place] BLUE MR PB ONLY MEDICARE PART B HB ONLY [employer] [place] [place] BLUE HB ONLY MEDICARE PART A HB ONLY [facility] Advance Directives * Full Code (Latest Code Status on File) Date Activated Date Inactivated Comments 11/22/2020 8:54 PM 11/23/2020 1:35 PM Question Answer Comments Code Status Discussion: Not Discussed * Full Code Date Activated Date Inactivated Comments 12/18/2019 10:46 AM 12/18/2019 7:15 PM Care Teams Parts Salvager Relationship Specialty Start Date End Date Votel, Max Ortega MD [address] [facility] [address] PCP - General Family Practice 09/28/23
--- OUTSIDE RECORDS SUMMARY | 2024-12-25 16:19 | XMS_ITS | Clinical Summary ---
Author Organization [facility] Address [address] [facility] , [address] [place] [address] Phone Care Team Providers Care Mixing Engineer Name Role Phone Kathleen Kumar DO Conditions or Problems Problem Name Problem Code Onset Date Status Entry Date Provider Comment Standard Description Annotate Seizure disorder 486725774 (SNOMED CT) Active Linda Brennan MD Seizure disorder Medications Medication Instructions Start Date Stop Date Generic Name [facility] Provider VIMPAT 50 MG TABS 1 po bid for 1 wk then 2 po bid lacosamide [id number] Kathleen León Stacy DO LAMOTRIGINE 25 MG TABS 1 po qhs for 2 wks, then 1 bid for 2 wks, then 2 bid for 1 wk, then 3 bid for 1 wk, then 4 bid lamotrigine 71103313764 Kathleen León Stacy DO LAMOTRIGINE 25 MG TABS lamotrigine 82332272296 Kathleen León Stacy DO VIMPAT 50 MG TABS 1 po bid for 1 wk then 2 po bid lacosamide [id number] Kathleen Mau Stacy DO LEVETIRACETAM 750 MG TABS 2 tabs po in AM, 3 tabs pM levetiracetam 30498127733 Param Kennedy PA-C LEVETIRACETAM 750 MG TABS 3 po bid levetiracetam 11477489715 Chel Pop RN KEPPRA 1000 MG TABS 1 tablet twice a day levetiracetam 24066735708 Linda Brennan MD LEVETIRACETAM 750 MG TABS 2 po bid levetiracetam 57711842843 Kathleen León Stacy DO LEVETIRACETAM 750 MG TABS levetiracetam 22415162613 Kathleen León Stacy DO KEPPRA 500 MG TABS 2 tabs twice a day levetiracetam 17733717870 Linda Brennan MD KEPPRA 1000 MG TABS 1 tablet twice a day levetiracetam 00300800717 Linda Brennan MD KEPPRA 500 MG TABS 2 tabs twice a day LEVETIRACETAM 43310519636 Linda Brennan MD TERBINAFINE HCL TABS TERBINAFINE HCL TABS 03987482253 Linda Brennan MD KEPPRA 500 MG TABS 1 tab twice a day LEVETIRACETAM 20091587044 Linda Brennan MD Medications Administered No information [...] up after testing 2019 ORDERS EEG Routine [id number] EEG EXTENDED 41-60mins (END) Vital Signs Date [...]
--- OUTSIDE RECORDS SUMMARY | 2024-12-25 16:20 | XMS_ITS | Continuity of Care Document ---
Author Organization [facility] Address [address] [place] [address] Care Team Providers Care Order Tracer Name Role Phone TEETEE VASQUES Primary Care Provider Assessment Encounter Date Assessment [...] Not available APC EST 2024 10:30A M [place] SRINIVASANP-BC Not available Not available Not available Lab PSA, serum or plasma 2024 0604 025 ssamb [facility], [address], [place], [address], 12/05/2024 14:30:28 Referral None recorded . Procedures [...] Not Available [facility] [address], [place], [address], 12/05/2024 14:30:07 Result Notes None recorded. Problems Name Problem SNOMED Code Status Onset Date Resolution Date Notes Provider Name and Address Organization Details Recorded Time Malignant neoplasm of prostate 763333053 Active 020 Tay [employer] 0 10:56:50 Problem Notes None recorded. Procedures Surgical History Date Name Laterality Status Provider Name and Address Organization Details Recorded Time 5 COMPLEX VISIT completed Valentin Jimenez MD [address] [place] [address],[address], [address], [facility] 12/10/2024 13:17:47 4 COMPLEX VISIT completed Valentin Jimenez MD [address] [place] [address], [address], [facility] 04/11/2024 12:21:48 4 CONSERVATION TECHNICIAN/blood draw completed Valentin Jimenez MD [address] [place] [address],[address], [address], [facility] 04/11/2024 11:54:00 4 CONSERVATION TECHNICIAN/blood draw completed Valentin Jimenez MD [address] [place] [address], [address], [facility] 10/04/2023 11:11:06 3 Blood Draw/CONSERVATION TECHNICIAN/PSA RESULTS completed Valentin Jimenez MD [address] [place] [address], [address], [facility] 03/29/2023 11:53:42 3 CONSERVATION TECHNICIAN/blood draw completed Valentin Jimenez MD [address] [place] [address], [address], [facility] 09/07/2022 11:19:39 09/07/202 2 Blood Draw/CONSERVATION TECHNICIAN/PSA RESULTS completed Valentin Jimenez MD [address] [place] [address],[address], [place], [address], [facility] 03/10/2022 14:46:12 1 Blood Draw/CONSERVATION TECHNICIAN/PSA RESULTS completed Valentin Jimenez MD [address] [place] [address],[facility] [address], [address], [facility] 03/27/2021 11:12:53 1 Blood Draw/CONSERVATION TECHNICIAN/PSA RESULTS completed Valentin Jimenez MD [address] [place] [address],[address], [place], [address], [facility] 09/24/2020 11:02:16 0 Colonoscopy completed Ida Stanley [facility] 03/28/2021 11:55:18 0 Blood Draw/CONSERVATION TECHNICIAN/PSA RESULTS completed Lizzeth Reina [facility] 03/26/2020 12:00:39 0 cryosurgery completed Tay Munoz [facility] 01/22/2020 10:57:26 Imaging Results None [...] Updated DateTime 12/05/2024 182.88 cm 21.7 kg/m2 60410.78 g Tay Munoz [facility] 12/05/2024 14:12:34 Social History Question Answer Notes LastModified by Organizat ion Details LastModified Time Tobacco Smoking Status [facility]oker [facility] 01/22/2020 10:57:02 What Is Your Level [...] available 10/03 11:14:24 Medical History Condition Response Diabetes N Sexually Transmitted Infection N Other N Bleeding Disorder N High Blood Pressure N Kidney Stones N Cancer Y Lung Disease N Depression N High Cholesterol N GERD/Acid Reflux N Heart Disease N Immunizations Vaccine Type Date Status Note Provider Nam e and Address Organization Details Recorded Time zoster recombinant 1 completed Valentin Jimenez MD [address] [place] [address],[address], [address], [facility] 10/04/2023 11:10:09 zoster recombinant 1 completed Valentin Jimenez MD [address] [place] [address],[address], [address], [facility] 10/04/2023 11:10:09 Influenza, adjuvanted, quadrivalent, PF 0 completed Valentin Jimenez MD [address] [place] [address],[address], [address], [facility] 10/04/2023 11:10:09 Influenza, adjuvanted, quadrivalent, PF 1 completed Valentin Jimenez MD [address] [place] [address],[address], [address], [facility] 10/04/2023 11:10:09 COVID-19, mRNA, LNP-S, PF, 100 mcg/0.5mL dose or 50 mcg/0.25mL dose 1 completed Valentin Jimenez MD [address] [place] [address],[address], [address], [facility] 10/04/2023 11:10:09 COVID-19, mRNA, LNP-S, PF, 100 mcg/0.5mL dose or 50 mcg/0.25mL dose 1 completed Valentin Jimenez MD [address] [place] [address],[address], [place], [address], [facility] 10/04/2023 11:10:09 COVID-19, mRNA, LNP-S, PF, 100 mcg/0.5mL dose or 50 mcg/0.25mL dose 1 completed Valentin Jimenez MD [address] [place] [address],[address], [place], [address], [facility] 10/04/2023 11:10:09 Tdap 8 completed Valentin Jimenez MD [address] [place] [address],[address], [place], [address], [facility] 10/04/2023 11:10:09 Td (adult), 5 Lf tetanus toxoid, preservative free, adsorbed 6 completed Valentin Jimenez MD [address] [place] [address],[address], [place], [address], [facility] 10/04/2023 11:10:09 Td (adult), 2 Lf tetanus toxoid, preservative free, adsorbed 6 completed Valentin Jimenez MD [address] [place] [address],[address], [place], [address], [facility] 10/04/2023 11:10:09 COVID-19, mRNA, LNP-S, PF, 30 mcg/0.3 mL dose, karan-sucrose 2 completed Valentin Jimenez MD [address] [place] [address],[address], [place], [address], [facility] 04/11/2024 11:52:31 Influenza, high-dose, quadrivalent, PF 2 completed Not Available [facility] 12/05/2024 14:01:12 COVID-19, mRNA, LNP-S, bivalent, PF, 50 mcg/0.5 mL or 25mcg/0.25 mL dose 2 completed Not Available [facility] 12/05/2024 14:01:12 Pneumococcal conjugate PCV20, polysaccharide [id number] conjugate, adjuvant, PF 3 completed Not Available [facility] 12/05/2024 14:01:12 Influenza, high-dose, quadrivalent, PF 3 completed Not Available [facility] 12/05/2024 14:01:12 Past Encounters Encounter ID Performer Location Encounter Start Date Encounter Closed Date Diagnosis/Indication Diagnosis SNOMED-CT Code Diagnosis ICD10 Code Diagnosis Note [id number] Valentin Jimenez MD [facility] [address] [place] [address] 12/05/2024 13:58:26 12/11/2024 16:53:52 Malignant neoplasm of prostate 304629469 C61 Health Concerns Section Related Observation LastModified by Organization Detai ls LastModified Time None Recorded Concern Status LastModified by Organization Details LastModified Time None Recorded Payers Encounter Date Sequence Insurance Name Policy Number Policy Stokes Covered Member ID Stokes Member ID Guarantor Name 12/05/2024 1 [place] [employer] [place] - MEDICARE COST [id number] Javier Scott [id number] Javier Scott Notes Date Note Type Note [...] PSA TODAY 12/05/2024: 1.5 Valentin Jimenez MD [address], [place], [address], [facility] 12/10/2024 13:21:59
--- OUTSIDE RECORDS SUMMARY | 2024-12-25 16:20 | XMS_ITS | Data Portability ---
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 [employer]RA [facility] Address [address] [place] [address] Assessment Encounter Date Assessment Date Assessment LastModified [...] Address Organization Details Recorded Time Neck pain 16341421 Active 2024 Jordon Lewis DC [address], [place], [address], [place] [facility] 18:54:19 Cervical segmental dysfunction 315357352 Active 2024 Jordon Lewis DC [address], [place], [address], [place] [facility] 18:54:19 Lumbar segmental dysfunction 338624305 Active 2024 Jordon Lewis DC [address], [place], [address], [facility] 18:54:19 Thoracic segmental dysfunction 217084302 Active 2024 Jordon Lewis DC [address], [place], [address], [facility] 18:54:19 Low back pain 979869668 Active 2024 Jordon Lewis DC [address], [place], [address], [place] [facility] 18:54:23 Somatic dysfunction of sacral spine 650032661 Active 2024 Jordon Lewis DC [address], [place], [address], [facility] 18:54:23 Problem Notes None recorded. Procedures Surgical History Date Name Laterality Status Provider Name and Address Organization Details Recorded Time 5 [address]842: Spinal manipulation , 3 to 4 regions completed Jordon Lewis DC [address], [place], [address], [facility] 10/12/2024 14:16:50 5 [address]: Spinal manipulation , 3 to 4 regions completed Jordon Lewis DC [address], [place], [address], [facility] 09/03/2024 19:11:23 Imaging Results None recorded. Procedure [...] SNOMED-CT Code Diagnosis ICD10 Code Diagnosis Note [id number] Jordon Lewis DC [facility] [address] [place] [address] 09/03/2024 15:17:17 09/04/2024 09:46:34 Cervical segmental dysfunction 727585077 M99.01 Neck pain 84504456 M54.2 Thoracic s egmental dysfunction 471862391 M99.02 Lumbar seg mental dysfunction 287805850 M99.03 Low back pain 809421787 M54.50 Somatic dy sfunction of sacral spine 663641455 M99.04 [id number] BERTHA Cavazos [facility] [address] [place] [address] [facility] [place] [address] 10/12/2024 11:10:55 10/12/2024 15:37:09 Cervical segmental dysfunction 845099154 M99.01 Neck pain 88086126 M54.2 Thoracic s egmental dysfunction 791043327 M99.02 Lumbar seg mental dysfunction 610120342 M99.03 Low back pain 734728694 M54.50 Somatic dy sfunction of sacral spine 176762698 M99.04 Health Concerns Section Related Observation LastModified by Organization Detai ls LastModified Time None Recorded Concern Status LastModified by Organization Details LastModified Time None Recorded Advance Directives Directive None Recorded Payers Insurance Date Sequence Insurance Name Policy Number Policy Stokes Covered Member ID Stokes Member ID Guarantor Name 10/11/2024 1 [place] [employer] Javier Scott [id number] Javier Scott 10/11/2024 2 [place] [id number] Javier Scott [id number] Javier Scott Notes Date Note Type Note [...] Alleviating Factors:nothing helps Jordon Lewis DC [address], [place], [address], [facility] 09/03/2024 19:11:37 10/12/2024 text/html HPI - Cervical SpineReported bypatient.Location: right Quality:aching Severity:moderate Timing:gradual Context:atraumatic Alleviating Factors:chiropracti c care; rest Aggravating Factors:bending; twisting/turning Associated Symptoms:no numbness/tinglingHP I - Lumbar SpineReported bypatient.Location: right; With radiation to knee Quality:aching Severity:mild Context:bending; lifting; twisting Aggravating Factors:lifting; twisting; bending/squatting Alleviating Factors:nothing helps Jordon Lewis DC [address], [place], [address], [facility] 10/12/2024 14:17:49
--- OUTSIDE RECORDS SUMMARY | 2024-12-25 16:20 | XMS_ITS | Clinical Summary ---
Author Organization [place] Address [address] [place] [address]. 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 11/14/2024 Suspended OXcarbazepine (TRILEPTAL) 300 MG tabletIndicatio ns:Epilepsy with partial complex seizures Take 450 mg by mouth every morning. 12/16/2024 Suspended lamoTRIgine (LAMICTAL) 100 MG tablet Take 150 mg by mouth every morning. 11/14/2024 Suspended lamoTRIgine (LAMICTAL) 100 MG tablet Take 100 mg by mouth every evening. Suspended OXcarbazepine (TRILEPTAL) 300 MG tabletIndicatio ns:Epilepsy with partial complex seizures Take 300 mg by mouth every evening. Suspended levETIRAcetam (KEPPRA) 500 MG tablet Take 500 mg by mouth 2 times daily. Suspended Active Problems Problem Noted Date Diagnosed Date Hyponatremia 12/24/2024 Seizure disorder 12/24/2024 Encephalopathy 12/24/2024 Encounters Date Type Department Care Team Description 12/24/2024 3:27 AM CDT - Present Hospital Encounter [facility] [address] [place] [phone] Ida Carreon MD Kampfe, MD Se Crespo, Stefano Mckeon MD 12/24/2024 Results Follow-Up [facility] Services - General Medicine & Pediatrics [address] [place] [phone] Malik Cowan PA-C from Last 3 Months Social History Tobacco Use Types Packs/Day Years [...] in an abandoned building, in an overnight fdc, or couch-surfing.) Yes 12/24/2024 Are you worried [...] on file Legal Sex Male 4:[address] [employer] Gender Identity Not on file Sexual Orientation Not on file Last Filed Vital Signs Vital Sign Reading [...] Mass Index 22.31 12/24/2024 3:45 AM CDT Plan of Treatment Health Maintenance Due Date Last Done Comments ADVANCE CARE PLANNING 1945 ANNUAL REVIEW OF HM ORDERS 1945 LIPID 1986 FALL RISK ASSESSMENT 2011 RSV VACCINE (1 - 1-dose 75+ series) 2021 COVID-19 VACCINE ( season) 2024 04/19/2022, 11/02/2021, 05/06/2021, Additional history exists PHQ-2 (once per calendar year) 2024 INFLUENZA VACCINE (Season Ended) 2025 04/18/2023, 04/19/2022, 04/23/2021, Additional history exists MEDICARE ANNUAL WELLNESS VISIT 11/14/2025 11/14/2024, 11/10/2023, 11/04/2022, Additional history exists DTAP/TDAP/TD VACCINE (5 - Td or Tdap) 09/04/2027 09/03/2017, 04/07/2006, 04/07/2006, Additional history exists DIABETES SCREENING 12/26/2027 12/25/2024, 0 12/24/2024, 12/24/2024, Additional history exists ZOSTER VACCINE Completed 06/29/2021, 04/28/2021 HEPATITIS C SCREENING Completed 11/02/2021 PNEUMOCOCCAL VACCINE 50+ YEARS Completed 11/04/2022 HPV VACCINE Aged Out No longer eligi ble based on patient's age to complete this topic MENINGITIS VACCINE Aged Out No longer eligible based on patient's age to complete this topic Procedures * The patient is currently admitted. The information in this section might not be complete until the patient is discharged. Procedure Name Priority Date/Time Associated Diagnosis Comments SODIUM Timed 12/25/2024 2:28 PM CDT EXTRA PURPLE TOP TUBE Routine 12/25/2024 8:34 AM CDT EXTRA TUBE Routine 12/25/2024 8:34 AM CDT SODIUM [...] CDT FOLATE Routine 12/24/2024 10:43 AM CDT VITAMIN B12 Routine 12/24/2024 10:43 AM CDT AMMONIA Routine 12/24/2024 10:43 AM CDT SODIUM Timed 12/24/2024 10:43 AM CDT GLUCOSE BY METER Routine 12/24/2024 7:58 AM CDT CBC WITH PLATELETS & DIFFERENTIAL Routine 12/24/2024 6:54 AM CDT OSMOLALITY STAT Add-on 12/24/2024 6:54 AM CDT CBC WITH PLATELETS AND DIFFERENTIAL Routine 12/24/2024 6:54 AM CDT TSH WITH FREE T4 REFLEX Routine 12/24/2024 6:54 AM CDT COMPREHENSIVE METABOLIC PANEL Routine 12/24/2024 6:54 AM CDT SODIUM Timed 12/24/2024 6:54 AM CDT OSMOLALITY, RANDOM URINE Routine 12/24/2024 6:17 AM CDT SODIUM RANDOM URINE Routine 12/24/2024 6 :17 AM CDT GLUCOSE BY METER Routine 12/24/2024 3:54 AM CDT from Last 3 Months Results * (ABNORMAL) Sodium (12/25/2024 2:28 PM CDT) Only the most recent of6 resultswithin the time period is included. Sodium 133(L) 135 - 145 mmol/L 12/25/2024 3:48 PM CDT [facility] Blood BLOOD SPECIMEN / Unknown Venipuncture / Unknown 12/25/2024 2:28 PM CDT 12/25/2024 2:31 PM CDT Jt eG MD LAB - BLOOD ORDERABLES Final R esult Performing Organization Address City/[facility]/ZIP Co de Phone Number [facility] [address] [place] [address] Room [address] [place] [phone] * Extra Purple Top Tube (12/25/2024 8:34 AM CDT) Hold Specimen JIC 12/25/2024 9:46 AM CDT [facility] Blood STRUCTURE OF RIGHT UPPER LIMB / Unknown Venipuncture / Unknown 12/25/2024 8:34 AM CDT 12/25/2024 8:38 AM CDT Stefano Saez MD LAB - BLOOD ORDERABLES Fi nal Result [facility] [address] [facility]. [address] [place] [phone], [facility] * (ABNORMAL) Basic metabolic panel (12/25/2024 3:05 AM CDT) Sodium 127(L) 135 - 145 mmol/L 12/25/2024 3:46 AM CDT [facility] Potassium 4.6 3.4 - 5.3 mmol/L 12/25/2024 3:46 AM CDT [facility] Chloride 96(L) 98 - 107 mmol/L 12/25/2024 3:46 AM CDT [facility] Carbon Dioxide (CO2) 20(L) 22 - 29 mmol/L 12/25/2024 3:46 AM CDT [facility] Anion Gap 11 7 - 15 mmol/L 12/25/2024 3:46 AM T [facility] Urea Nitrogen 16.7 8.0 - 23.0 mg/dL 12/25/2024 3:46 AM CDT [facility] Creatinine 0.87 0.67 - 1.17 mg/dL 12/25/2024 3:46 AM CDT [facility] GFR Estimate 88 >60 mL/min/1.7 3m2 12/25/2024 3:46 AM T [facility] Comment:eGFR calculated 2020 CKD-EPI equation. Calcium 8.5(L) 8.8 - 10.4 mg/dL 12/25/2024 3:46 AM T [facility] Glucose 133(H) 70 - 99 mg/dL 12/25/2024 3:46 AM T [facility] Blood STRUCTURE OF RIGHT UPPER LIMB / Unknown Venipuncture / Unknown 12/25/2024 3:05 AM CDT 12/25/2024 3:27 AM CDT Jt Ge MD LAB - BLOOD ORDERABLES Final R esult [facility] [address] [facility]. Room [address] [place] [address], [facility] * (ABNORMAL) CBC with platelets (12/25/2024 3:05 AM CDT) WBC Count 11.8(H) 4.0 - 11.0 10e3/uL 12/25/2024 3:30 AM CDT [facility] RBC Count 4.13(L) 4.40 - 5.90 10e6/uL 12/25/2024 3:30 AM CDT [facility] Hemoglobin 13.0(L) 13.3 - 17.7 g/dL 12/25/2024 3:30 AM CDT [facility] Hematocrit 36.9(L) 40.0 - 53.0 % 12/25/2024 3:30 AM CDT [facility] MCV 89 78 - 100 fL 12/25/2024 3:30 AM CDT [facility] MCH 31.5 26.5 - 33.0 pg 12/25/2024 3:30 AM CDT [facility] MCHC 35.2 31.5 - 36.5 g/dL 12/25/2024 3:30 AM CDT [facility] RDW 12.0 10.0 - 15.0 % 12/25/2024 3:30 AM CDT [facility] Platelet Count 182 150 - 450 10e3/uL 12/25/2024 3:30 AM CDT [facility] Blood STRUCTURE OF RIGHT UPPER LIMB / Unknown Venipuncture / Unknown 12/25/2024 3:05 AM CDT 12/25/2024 3:27 AM CDT us Jt Ge MD LAB - BLOOD ORDERABLES Final R esult [facility] [address] [facility]. Room [address] [place] [address] * Treponema Abs w Reflex to RPR and Titer (12/24/2024 10:43 AM CDT) Pathologist [facility] Treponema Antibody Total Nonreactive Nonreactive 12/24/2024 4:27 PM CDT [facility] Blood STRUCTURE OF LEFT UPPER LIMB / Unknown Venipuncture / Unknown 12/24/2024 10:43 AM CDT 12/24/2024 10:47 AM CDT Renae Peters PA-C LAB - BLOOD ORDERABLES Final Result [facility]/PROT/ENDO [facility]/Prot/Endo [address] [facility] [address], Room [address] [address] [address] [facility] [address] [facility], Room [address] [phone] * (ABNORMAL) Lamotrigine Level (12/24/2024 10:43 AM CDT) Lamotrigine <0.9(L) 3.0 - 15.0 ug/mL 12/25/2024 3:16 PM CDT [facility] Comment: INTERPRETIVE INFORMATION: Lamotrigine Therapeutic Range: 3.0-15.0 ug/mL Toxic: Greater than or equal to 20 ug/mL Pharmacokinetics varies widely, particularly with co-medications and/or compromised renal function. Adverse effects may include dizziness, somnolence, nausea and vomiting. Performed By: [facility] [address] [place] [address] Sheeter Helper: Tacos Velasquez MD, PhD CLIA Number: [id number] Blood STRUCTURE OF LEFT UPPER LIMB / Unknown Venipuncture / Unknown 12/24/2024 10:43 AM CDT 12/24/2024 10:47 AM CDT Renae Peters PA-C LAB - BLOOD ORDERABLES Final Result [facility] [address] [place] [address], [facility] [phone] * Keppra (Levetiracetam) Level (12/24/2024 10:43 AM CDT) Keppra (Levetiracetam) Level 36.1 10.0 - 40.0 g/mL 12/24/2024 2:16 PM CDT [facility] Blood STRUCTURE OF LEFT UPPER LIMB / Unknown Venipuncture / Unknown 12/24/2024 10:43 AM CDT 12/24/2024 10:47 AM CDT us Renae Peters PA-C LAB - BLOOD ORDERABLES Final Result [facility]AT[facility] [place] [facility] [address] [facility] [place] [phone] * Folate (12/24/2024 10:43 AM CDT) Folic Acid 18.4 4.6 - 34.8 ng/mL 12/24/2024 9:02 PM CDT LABORATORY Blood STRUCTURE OF LEFT UPPER LIMB / Unknown Venipuncture / Unknown 12/24/2024 10:43 AM CDT 12/24/2024 10:47 AM CDT us Renae Peters PA-C LAB - BLOOD ORDERABLES Final Result LABORATORY [facility] [place] [facility] [address] [facility], [address] [phone] * (ABNORMAL) Ammonia (12/24/2024 10:43 AM CDT) Pathologist [facility] Ammonia 15(L) 16 - 60 umol/L 12/24/2024 11:04 AM CDT [facility] Blood STRUCTURE OF LEFT UPPER LIMB / Unknown Venipuncture / Unknown 12/24/2024 10:43 AM CDT 12/24/2024 10:46 AM CDT us Renae Peters PA-C LAB - BLOOD ORDERABLES Final Result [facility] [address] [facility]. [address] [place] [address] * Vitamin B12 (12/24/2024 10:43 AM CDT) Vitamin B12 637 232 - 1,245 pg/mL 12/24/2024 2:31 PM CDT [facility] Blood STRUCTURE OF LEFT UPPER LIMB / Unknown Venipuncture / Unknown 12/24/2024 10:43 AM CDT 12/24/2024 10:47 AM CDT Renae Peters PA-C LAB - BLOOD ORDERABLES Final Result [facility] [place] [facility] [address] [facility] [place] [address] * (ABNORMAL) Glucose by meter (12/24/2024 7:58 AM CDT) Only the most recent of2 resultswithin the time period is included. GLUCOSE BY METER POCT 121(H) 70 - 99 mg/dL 12/24/2024 8:06 AM CDT [facility] POC Comment:Dr/RN Notified Blood, Capillary BLOOD SPECIMEN / Unknown 12/24/2024 7:58 AM CDT 12/24/2024 8:06 AM CDT Jt Ge MD LAB - BEAKER POCT Final Result ID LABORATORY POC [facility] Acute [facility] Lab [address] [facility]. Room [address] [place] [address] * (ABNORMAL) CBC with platelets and differential (12/24/2024 6:54 AM CDT) WBC Count 10.7 4.0 - 11.0 10e3/uL 12/24/2024 7:50 AM CDT [facility] RBC Count 3.94(L) 4.40 - 5.90 10e6/uL 12/24/2024 7:50 AM CDT [facility] Hemoglobin 12.5(L) 13.3 - 17.7 g/dL 12/24/2024 7:50 AM CDT [facility] Hematocrit 35.4(L) 40.0 - 53.0 % 12/24/2024 7:50 AM CDT [facility] MCV 90 78 - 100 fL 12/24/2024 7:50 AM CDT [facility] MCH 31.7 26.5 - 33.0 pg 12/24/2024 7:50 AM CDT [facility] MCHC 35.3 31.5 - 36.5 g/dL 12/24/2024 7:50 AM CDT [facility] RDW 11.9 10.0 - 15.0 % 12/24/2024 7:50 AM CDT [facility] Platelet Count 173 150 - 450 10e3/uL 12/24/2024 7:50 AM CDT [facility] % Neutrophils 86 % 12/24/2024 7:50 AM CDT [facility] % Lymphocytes 7 % 12/24/2024 7:50 AM CDT [facility] % Monocytes 7 % 12/24/2024 7:50 AM CDT [facility] % Eosinophils 0 % 12/24/2024 7:50 AM CDT [facility] % Basophils 0 % 12/24/2024 7:50 AM CDT [facility] % Immature Granulocytes 1 % 12/24/2024 7:50 AM CDT [facility] NRBCs per 100 WBC 0 <1 /100 025 7:50 AM CDT [facility] Absolute Neutrophils 9.2(H) 1.6 - 8.3 10e3/uL 12/24/2024 7:50 AM CDT [facility] Absolute Lymphocytes 0.7(L) 0.8 - 5.3 10e3/uL 12/24/2024 7:50 AM CDT [facility] Absolute Monocytes 0.7 0.0 - 1.3 10e3/uL 12/24/2024 7:50 AM CDT [facility] Absolute Eosinophils 0.0 0.0 - 0.7 10e3/uL 12/24/2024 7:50 AM CDT [facility] Absolute Basophils 0.0 0.0 - 0.2 10e3/uL 12/24/2024 7:50 AM CDT [facility] Absolute Immature Granulocytes 0.1 <=0.4 10e3/uL 12/24/2024 7:50 AM CDT [facility] Absolute NRBCs 0.0 10e3/uL 12/24/2024 7:50 AM CDT [facility] Blood STRUCTURE OF RIGHT UPPER LIMB / Unknown Venipuncture / Unknown 12/24/2024 6:54 AM CDT 12/24/2024 7:11 AM CDT Result [facility] Ida Carreon MD LAB - BLOOD ORDERABLES Final Result Performing Organization Address [facility]/ZIP Co de Phone Number [facility] [address] [place] [address]. Room [address] [place] [phone] * TSH with free T4 reflex (12/24/2024 6:54 AM CDT) TSH 3.31 0.30 - 4.20 uIU/mL 12/24/2024 7:55 AM CDT [facility] Blood STRUCTURE OF RIGHT UPPER LIMB / Unknown Venipuncture / Unknown 12/24/2024 6:54 AM CDT 12/24/2024 7:11 AM CDT Result [facility] Ida Carreon MD LAB - BLOOD ORDERABLES Final Result Performing Organization Address [facility] de Phone Number [facility] [address] [place] [address]. Room [address] [place] [phone] * (ABNORMAL) Osmolality (12/24/2024 6:54 AM [...] BLOOD ORDERABLES Final R esult [facility] [place] [facility] [address] [facility] [place] [address] * (ABNORMAL) Comprehensive metabolic panel (12/24/2024 6:54 AM [facility]) Sodium 120(L) 135 - 145 mmol/L 12/24/2024 7:43 AM [facility] Potassium 4.2 3.4 - 5.3 mmol/L 12/24/2024 7:43 AM [facility] Carbon Dioxide (CO2) 21(L) 22 - 29 mmol/L 12/24/2024 7:43 AM [facility] Anion Gap 9 7 - 15 mmol/L 12/24/2024 7:43 AM [facility] Urea Nitrogen 12.8 8.0 - 23.0 mg/dL 12/24/2024 7:43 AM [facility] Creatinine 0.84 0.67 - 1.17 mg/dL 12/24/2024 7:43 AM [facility] GFR Estimate 89 >60 mL/min/1.7 3m2 12/24/2024 7:43 AM [facility] Comment:eGFR calculated us2020 CKD-EPI equation. Calcium 8.3(L) 8.8 - 10.4 mg/dL 12/24/2024 7:43 AM [facility] Chloride 90(L) 98 - 107 mmol/L 12/24/2024 7:43 AM [facility] Glucose 117(H) 70 - 99 mg/dL 12/24/2024 7:43 AM [facility] Alkaline Phosphatase 63 40 - 150 U/L 12/24/2024 7:43 AM [facility] AST 25 0 - 45 U/L 12/24/2024 7:43 AM [facility] ALT 14 0 - 70 U/L 12/24/2024 7:43 AM [facility] Protein Total 5.5(L) 6.4 - 8.3 g/dL 12/24/2024 7:43 AM [facility] Albumin 3.6 3.5 - 5.2 g/dL 12/24/2024 7:43 AM CDT [facility] Bilirubin Total 0.7 <=1.2 mg/dL 12/24/2024 7:43 AM CDT [facility] Blood STRUCTURE OF RIGHT UPPER LIMB / Unknown Venipuncture / Unknown 12/24/2024 6:54 AM CDT 12/24/2024 7:11 AM CDT Ida Carreon MD LAB - BLOOD ORDERABLES Final Result Performing Organization Address [facility] de Phone Number [facility] [address] [place] [address]. Room [address] [place] [phone] * Sodium random urine (12/24/2024 6:17 AM CDT) Sodium Urine mmol/L 22 mmol/L 12/24/2024 6:38 AM CDT [facility] Comment:The reference ranges have not been established in urine sodium. The results should be integrated into the clinical context for interpretation. Urine URINE SPECIMEN OBTAINED BY CLEAN CATCH PROCEDURE / Unknown Non-blood Collection / Unknown 12/24/2024 6:17 AM CDT 12/24/2024 6:24 AM CDT Ida Carreon MD LAB - URINE ORDERABLES Final Result Performing Organization Address [facility] de Phone Number [facility] [address] [place] [address]. Room [address] [place] [phone], [facility] * Osmolality urine (12/24/2024 6:17 AM CDT) [...] 1.0-3.0; 3.0-4.7 after 12 hour fluid restriction us Ida Carreon MD LAB - URINE ORDERABLES Final Result [facility] [address] [facility] [place] [address], [facility] from Last 3 Months Insurance [facility] MEDICARE BCBS [employer] BLUE MEDICARE Advance Directives For more information, please contact: [phone] * Full Code (Latest Code Status on File) Date Activated Date Inactivated Comments 12/24/2024 5:11 AM All basic and advanced life-sustaining interventions are performed as appropriate Question Answer Comments Code status determined by: Discussion with zuri nt/ legal decision maker Care Teams G[employer] Broker And Market Operator Relationship Specialty Start Date End Date [address] [address] PCP - General 12/24/24
--- OUTSIDE RECORDS SUMMARY | 2024-12-25 16:20 | XMS_ITS | Data Portability ---
Author Organization [facility], [facility] Address [address] [place] [address] Care Team Providers Care Box Folding Machine Operator Name Role Phone TEETEE TYREL Primary Care Provider Assessment Encounter Date Assessment [...] PLAN RTC 6 MO.WILL GET PSA IN [place]. Not available 10/04/2023 11:38:53 04/11/2024 04/11/2024 78 y/o male, hx cap, g6, g8(4,4), S/P CRYOTHERAPY 2021. DOING WELL. GOOD FLOW, DRY. PSA STABLE 0.15 , NO COMPLAINTS. ORDERED, REVIEWED PSA PLAN HE WILL GET PSA IN 6 MO IN [place]. Not available 04/11/2024 12:21:21 12/05/2024 12/05/2024 79 Y/O MALE, HX CAP, G6, G8(4,4).S/P CRYOTHERAPY 2021. DOING WELL. GOOD FLOW, DRY. PSA 1.5. DISCUSSED NEED FOR FURTHER EVALUATION IF PSA RISES ABOVE 2.5-3.0. WOULD DO MRI SCAN AND RE BX. IF NEEDED, ORDERED REVIEWED PSA PLAN RTC 6 MO. WILL FOLLOWUP WITH DR BAKER OR ANJELIAC.PSA. IF RISES DO MRI SCAN. RE BX, POSSIBLE RADIATION. Not available 12/10/2024 13:20:46 Plan of Treatment Reminders Order Date Submit Date Provider Last Modified By Organization Details Last Modified Time Details Appointments PSA 10 2024 10:20A M [facility] Not available Not available Not available APC EST 2024 10:30A M HANS SRINIVASAN-BC Not available Not available Not available Lab PSA, serum or plasma 2024 025 ssamb [facility], [address], [place], [address], 12/05/2024 14:30:28 PSA, serum or plasma 2023 024 [facility], [address], [place], [address], 04/11/2024 12:22:15 PSA, serum or plasma 2023 024 ssamb [facility], [address], [place], [address], 10/04/2023 11:25:53 PSA, serum or plasma 2022 023 [facility], [address], [place], [address], 03/29/2023 11:54:06 Referral None recorded . Procedures [...] Not Available [facility] [address], [place], [address], 03/29/2023 11:53:46 10/04/19 24 10/04/2023 PSA, serum or plasm a PSA 0.35 ng/mL 0-4.0 Not Available [facility] [address], [place], [address], 10/04/2023 11:11:10 04/11/20 24 04/11/2024 PSA, serum or plasm a PSA 0.15 ng/mL 0-4.0 NG/mL Not Available [facility] [address], [place], [address], 04/11/2024 11:54:15 12/06/19 25 12/05/2024 PSA, serum or plasm a PSA 1.5 ng/ml 0-4.0 NG/mL Not Available [facility] [address], [place], [address], 12/05/2024 14:30:07 Result Notes None recorded. Problems Name Problem SNOMED Code Status Onset Date Resolution Date Notes Provider Name and Address Organization Details Recorded Time Malignant neoplasm of prostate 635446090 Active 020 BEE Carmen [facility] 0 10:56:50 Problem Notes None recorded. Procedures Surgical History Date Name Laterality Status Provider Name and Address Organization Details Recorded Time 5 COMPLEX VISIT completed Valentin Jimenez MD [address] [place] [address],[address], [place], [address], [facility] 12/10/2024 13:17:47 4 COMPLEX VISIT completed Valentin Jimenez MD [address], [place], [address], [facility] 04/11/2024 12:21:48 4 LINER ROLL CHANGER/blood draw completed Valentin Jimenez MD [address] [place] [address],[address], [place], [address], [facility] 04/11/2024 11:54:00 4 LINER ROLL CHANGER/blood draw completed Valentin Jimenez MD [address] [place] [address],[address], [place], [address], [facility] 10/04/2023 11:11:06 3 Blood Draw/LINER ROLL CHANGER/PSA RESULTS completed Valentin Jimenez MD [address] [place] [address],[address], [place], [address], [facility] 03/29/2023 11:53:42 3 LINER ROLL CHANGER/blood draw completed Valentin Jimenez MD [address] [place] [address],[address], [place], [address], [facility] 09/07/2022 11:19:39 2 Blood Draw/LINER ROLL CHANGER/PSA RESULTS completed Valentin Jimenez MD [address] [place] [address],[address], [place], [address], [facility] 03/10/2022 14:46:12 1 Blood Draw/LINER ROLL CHANGER/PSA RESULTS completed Valentin Jimenez MD [address] [place] [address],[address], [place], [address], [facility] 03/27/2021 11:12:53 1 Blood Draw/LINER ROLL CHANGER/PSA RESULTS completed Valentin Jimenez MD [address] [place] [address],[address], [place], [address], [facility] 09/24/2020 11:02:16 0 Colonoscopy completed Ida Stanley [facility] 03/28/2021 11:55:18 0 Blood Draw/LINER ROLL CHANGER/PSA RESULTS completed Lizzeth Reina [facility] 03/26/2020 12:00:39 0 cryosurgery completed Tay Tammy [facility] 01/22/2020 10:57:26 Imaging Results [...] Updated DateTime 10/04/2023 182.88 cm 21.4 kg/m2 60762.59 dany Jimenez MD [address] [place] [address],[address] 10/04/2023 11:10:02 Date Recorded Body height Body mass index (BMI) Body weight Provider Name and Address Organization Details Last Updated DateTime 12/05/2024 182.88 cm 21.7 kg/m2 39902.78 dany Munoz [facility] 12/05/2024 14:12:34 Date Recorded Body height Body mass index (BMI) Body weight Provider Name and Address Organization Details Last Updated DateTime 03/29/2023 182.88 cm 21.4 kg/m2 64239.59 dany Jimenez MD [address] [place] [address],[address] 03/29/2023 11:51:27 Date Recorded Body height Body mass index (BMI) Body weight Provider Name and Address Organization Details Last Updated DateTime 04/11/2024 182.88 cm 21.7 kg/m2 98957.78 dany Jimenez MD [address] [place] [address],[address] 04/11/2024 11:52:42 Social History Question Answer Notes LastModified by [employer] Details LastModified Time Tobacco Smoking Status Never Smoker Tay cervantes [facility] 01/22/2020 10:57:02 What Is Your Level Of Caffeine Consumption? None Information not available 10/04/2023 What Was The Date Of Your Most Recent Tobacco Screening? 12/05/2024 ssamb Information not available 12/05/2024 Has Tobacco Cessation Counseling Been Provided? No Information not available 10/04/2023 Sex: Unknown Functional Status Question Answer Note LastModified by [employer] Details LastModified Time Do you use any [...] zoster recombinant 1 completed Valentin Jimenez MD [address] [place] [address],[address], [address], [facility] 10/04/2023 11:10:09 zoster recombinant 1 completed Valentin Jimenez MD [address] [place] [address],[address], [address], [facility] 10/04/2023 11:10:09 Influenza, adjuvanted, quadrivalent, PF 0 completed Valentin Jimenez MD [address] [place] [address],[address], [address], [facility] 10/04/2023 11:10:09 Influenza, adjuvanted, quadrivalent, PF 1 completed Valentin Jimenez MD [address] [place] [address],[address], [address], [facility] 10/04/2023 11:10:09 COVID-19, mRNA, LNP-S, PF, 100 mcg/0.5mL dose or 50 mcg/0.25mL dose 1 completed Valentin Jimenez MD [address] [place] [address],[address], [address], [facility] 10/04/2023 11:10:09 COVID-19, mRNA, LNP-S, PF, 100 mcg/0.5mL dose or 50 mcg/0.25mL dose 1 completed Valentin Jimenez MD [address] [place] [address],[address], [place], [address], [facility] 10/04/2023 11:10:09 COVID-19, mRNA, LNP-S, PF, 100 mcg/0.5mL dose or 50 mcg/0.25mL dose 1 completed Valentin Jimenez MD [address] [place] [address],[address], [place], [address], [facility] 10/04/2023 11:10:09 Tdap 8 completed Valentin Jimenez MD [address] [place] [address],[address], [address], [facility] 10/04/2023 11:10:09 Td (adult), 5 Lf tetanus toxoid, preservative free, adsorbed 6 completed Valentin Jimenez MD [address] [place] [address],[address], [place], [address], [facility] 10/04/2023 11:10:09 Td (adult), 2 Lf tetanus toxoid, preservative free, adsorbed 6 completed Valentin Jimenez MD [address] [place] [address],[address], [address], [facility] 10/04/2023 11:10:09 COVID-19, mRNA, LNP-S, PF, 30 mcg/0.3 mL dose, karan-sucrose 2 completed Valentin Jimenez MD [address] [place] [address],[address], [place], [address], [facility] 04/11/2024 11:52:31 Influenza, high-dose, quadrivalent, PF 2 completed Not Available [facility] 12/05/2024 14:01:12 COVID-19, mRNA, LNP-S, bivalent, PF, 50 mcg/0.5 mL or 25mcg/0.25 mL dose 2 completed Not Available [facility] 12/05/2024 14:01:12 Pneumococcal conjugate PCV20, polysaccharide PRO339 conjugate, adjuvant, PF 3 completed Not Available [facility] 12/05/2024 14:01:12 Influenza, high-dose, quadrivalent, PF 3 completed Not Available [facility] 12/05/2024 14:01:12 Past Encounters Encounter ID Performer Location Encounter Start Date Encounter Closed Date Diagnosis/Indication Diagnosis SNOMED-CT Code Diagnosis ICD10 Code Diagnosis Note [id number] [place] [id number] 01/22/2020 10:49:30 01/23/2020 09:36:11 Benign prostatic hyperplasia with outflow obstruction 522459333 N40.1 Malignant neoplasm of prostate 206714623 C61 [id number] MD Fernanda [address] [place] [id number] 0 03/26/2020 11:34:52 03/26/2020 14:30:13 Malignant neoplasm of prostate 374870003 C61 [id number] MD Fernanda [address] [place] [id number] 09/24/2020 10:49:31 09/25/2020 16:19:16 Malignant neoplasm of prostate 856513862 C61 [id number] MD Fernanda Fonseca. [place] [id number] 0 03/27/2021 10:50:55 03/30/2021 09:23:15 Malignant neoplasm of prostate 528606061 C61 [id number] MD Fernanda [address] [place] [id number] 0 09/25/2021 10:33:09 09/28/2021 09:00:53 Malignant neoplasm of prostate 283750852 C61 [id number] MD Fernanda [address] [place] [id number] 03/10/2022 14:37:11 03/12/2022 13:10:21 Malignant neoplasm of prostate 524296890 C61 Prostate s pecific antigen above reference range 044658420 R97.20 [id number] MD Fernanda Fonseca. [place] [id number] 0 09/07/2022 11:10:34 09/09/2022 10:47:12 Malignant neoplasm of prostate 111804273 C61 [id number] Valentin Jimenez MD [facility] [address] [place] [id number] 03/29/2023 11:17:56 04/06/2023 11:27:05 Malignant neoplasm of prostate 571945189 C61 [id number] Valentin Jimenez MD [facility] [address] [place] [id number] 03/29/2023 11:17:56 04/08/2023 04:02:29 [id number] MD MICHAELA FonsecaTomas [address] [place] [id number] 10/04/2023 11:01:14 10/05/2023 12:16:36 Malignant neoplasm of prostate 853268381 C61 [id number] Valentin Jimenez MD [facility] [address] [place] [id number] 04/11/2024 11:42:43 04/12/2024 14:19:01 Malignant neoplasm of prostate 208000763 C61 [id number] Valentin Jimenez MD [facility] [address] [place] [id number] 12/05/2024 13:58:26 12/11/2024 16:53:52 Malignant neoplasm of prostate 686672874 C61 Health Concerns Section Related Observation LastModified by Organization Detai ls LastModified Time None Recorded Concern Status LastModified by Organization Details LastModified Time None Recorded Advance Directives Directive None Recorded Payers Insurance Date Sequence Insurance Name Policy Number Policy Stokes Covered Member ID Stokes Member ID Guarantor Name 12/11/2024 1 [place] COST [id number] Javier Scott [id number] Javier Scott 12/05/2024 1 [place] [id number] Javier Scott [id number] Javier Scott 12/05/2024 1 [place] - FQ Javier Scott [id number] Javier Scott Notes Date Note Type Note [...] DISCUSSED OPTIONS FOR E.D. Valentin Jimenez MD [address] [place] [address],[address], [address], [facility] 03/29/2023 13:12:08 10/04/2023 text/html 77 Y/O MALE, HX OF AN ELEVATED PSA . SMALL PROSTATE, NEG PROSTATE EXAM. PSA 11. PROSTATE 15 G. G6, G8(4,4) . NEG C.T. NEG BONE SCAN . HAD CRYO ON 12/23.doing well. good flow, mild freq. MOST RECENT PSA 0.11 ON 09/07/22 PSA TODAY 0.39. DISCUSSED OPTIONS FOR E.D. PSA TODAY 10/04/23: 0.35 Valentin Jimenez MD [address] [place] [address],[address], [place], [address], [facility] 10/04/2023 11:39:29 04/11/2024 text/html 77 [...] 0.15doing well no complaints. Valentin Jimenez MD [address] [place] [address],[address], [place], [address], [facility] 04/11/2024 12:22:18 12/05/2024 text/html 77 [...] PSA TODAY 12/05/2024: 1.5 Valentin Jimenez MD [address] [place] [address],[address], [place], [address], [facility] 12/10/2024 13:21:59
--- OUTSIDE RECORDS SUMMARY | 2024-12-25 16:20 | XMS_ITS | Encounter Summary ---
Author Organization [facility] Address [address] [place] [address]. [place] [address] Care Team Providers Care Airplane Engineer Name Role Phone Clinic, [facility] Primary Care Provider Encounter Details Date Type Department Care Team (Late st Contact Info) Description 12/24/2024 Results Follow-Up [facility] Services - General Medicine & Pediatrics [address] [place] [address] Malik Cowan PA-C [address] [place] [address] Social History Tobacco Use Types Packs/Day Years [...] Answer Date Recorded Do you have housing? 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
--- OUTSIDE RECORDS SUMMARY | 2024-12-26 00:34 | XMS_ITS | Clinical Summary ---
Author Organization [facility] Address [address] , [address] [place] [address] Phone Care Team Providers Care Fur Liner Name Role Phone Kathleen Kumar DO [phone] Conditions or Problems Problem Name Problem Code Onset Date Status Entry Date Provider Comment Standard Description Annotate Seizure disorder [id number] (SNOMED CT) Active Linda Brennan MD Seizure disorder Medications Medication Instructions Start Date Stop Date Generic Name [facility] Provider VIMPAT 50 MG TABS 1 po bid for 1 wk then 2 po bid lacosamide 58963523612 Kathleen León Stacy DO LAMOTRIGINE 25 MG TABS 1 po qhs for 2 wks, then 1 bid for 2 wks, then 2 bid for 1 wk, then 3 bid for 1 wk, then 4 bid lamotrigine 47770314382 Kathleen León Stacy DO LAMOTRIGINE 25 MG TABS lamotrigine 04893279886 Kathleen León Stacy DO VIMPAT 50 MG TABS 1 po bid for 1 wk then 2 po bid lacosamide 32582048591 Kathleen Mau Stacy DO LEVETIRACETAM 750 MG TABS 2 tabs po in AM, 3 tabs pM levetiracetam 13480045888 Param Kennedy PA-C LEVETIRACETAM 750 MG TABS 3 po bid levetiracetam 57150777335 Chel Pop RN KEPPRA 1000 MG TABS 1 tablet twice a day levetiracetam 18698156715 Linda Brennan MD LEVETIRACETAM 750 MG TABS 2 po bid levetiracetam 54433428271 Kathleen León Stacy DO LEVETIRACETAM 750 MG TABS levetiracetam 01088386766 Kathleen León Stacy DO KEPPRA 500 MG TABS 2 tabs twice a day levetiracetam 82290622741 Linda Brennan MD KEPPRA 1000 MG TABS 1 tablet twice a day levetiracetam 70357187080 Linda Brennan MD KEPPRA 500 MG TABS 2 tabs twice a day LEVETIRACETAM 53453052393 Linda Brennan MD TERBINAFINE HCL TABS TERBINAFINE HCL TABS 15213980265 Linda Brennan MD KEPPRA 500 MG TABS 1 tab twice a day LEVETIRACETAM 08124356114 Linda Brennan MD Medications Administered No information [...] Telemedicine Follow up 08/26 ORDERS Follow up KAWBENA ORDERS Levetiracetam (Keppra) 07/17 ORDERS Patient Instructions ORDERS Instructions for Staff 05/19 ORDERS Follow up ORDERS Levetiracetam (Keppra) 12/25 ORDERS Creatinine Serum ORDERS We will contact you with test results 07/09/23 ORDERS Follow up ORDERS Follow up after testing 2019 ORDERS EEG Routine CPT-[id number] EEG EXTENDED 41-60mins (END) Vital Signs Date [...]
--- OUTSIDE RECORDS SUMMARY | 2024-12-26 00:35 | XMS_ITS | Encounter Summary ---
Author Organization [facility] Address [address] [place] [address]. 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
--- OUTSIDE RECORDS SUMMARY | 2024-12-26 00:35 | XMS_ITS | Clinical Summary ---
Author Organization [facility] Address [address] [place] [address] Care Team Providers Care Inflatable Buildings Laminator Name Role Phone VotelMax MD Primary Care [...] Department Care Team Description 12/23/2024 Orders Only [facility] Scanner 1 scan: (1-Ord) [facility], CT HEAD/BRAIN WO CON, 12/23/2024 12/23/2024 Orders Only [facility] Scanner 1 scan: (1-Ord) [facility], CHEST 2VIEWS, 12/23/2024 11/14/2024 10:25 AM CDT Office Visit [facility] [address] [place] [address] Votel, Max Ortega MD Medicare ANNUAL (subsequent) [...] on file 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 Gender Identity Not on file Sexual Orientation [...] Burns MD HEMATOLOGY Final Re sult [facility] [employer] [facility] [address] [facility] [place] [address], [place] [phone] [facility] [address] [facility] [place] [address] * ALT (SGPT) (11/14/2024 11:04 AM CDT) Pathologist [facility] ALT 12 9 - 46 U/L [facility] Blood BLOOD SPECIMEN / Unknown 11/14/2024 11:04 AM CDT 11/14/2024 11:05 AM CDT Max Burns MD CHEMISTRY Final Re sult [facility] [address] [facility] [place] [address], [place] [phone] [facility] [address] [facility] [place] [address] * BASIC METABOLIC PANEL (11/14/2024 11:04 AM CDT) Pathologist [facility] GLUCOSE 94 65 - 99 mg/dL [employer] [employer] Rodriguez Comment: Fasting reference interval UREA NITROGEN (BUN) 13 7 - 25 mg/dL [facility] CREATININE 1.12 0.70 - 1.28 mg/dL [facility] EGFR 67 > OR = 60 mL/min/1. 73m2 [facility] BUN/CREATININE RATIO SEE NOTE: 6 - 22 (calc) [facility] Comment: Not Reported: BUN and Creatinine are within reference range. SODIUM 139 135 - 146 mmol/L [facility] POTASSIUM 4.4 3.5 - 5.3 mmol/L [facility] CHLORIDE 100 98 - 110 mmol/L [facility] CARBON DIOXIDE 30 20 - 32 mmol/L [facility] ELECTROLYTE BALANCE 9 7 - 17 mmol/L (calc) [facility] CALCIUM 9.8 8.6 - 10.3 mg/dL [facility] Arboledae Blood BLOOD SPECIMEN / Unknown 11/14/2024 11:04 AM CDT 11/14/2024 11:05 AM CDT Max Burns MD CHEMISTRY Final Re sult [facility] [address] [place] [address], [employer] [address] * ANTI HCV (11/02/2021 10:22 AM CDT) Pathologist [facility] HEPATITIS C ANTIBODY Non-React casi Non-React casi 11/02/2021 6:53 PM CDT [facility] Comment:Antibodies to HCV no t detected; does not exclude the possibility of exposure to HCV. Blood BLOOD SPECIMEN / Unknown Venipuncture / Unknown 11/02/2021 10:22 AM CDT 11/02/2021 10:23 AM CDT us Brittany Perez DO SEND OUTS Final Result [facility] [address] [place] [address], [place] from Last 3 Months or Most Recently Relevant to Health Maintenance Insurance [place] BL[place] MR PB ONLY MEDICARE PART B HB ONLY [place] HB ONLY MEDICARE PART A HB ONLY [facility] Advance Directives * Full Code (Latest Code Status on File) Date Activated Date Inactivated Comments 11/22/2020 8:54 PM 11/23/2020 1:35 PM Question Answer Comments Code Status Discussion: Not Discussed * Full Code Date Activated Date Inactivated Comments 12/18/2019 10:46 AM 12/18/2019 7:15 PM Care Teams Inflatable Buildings Laminator Relationship Specialty Start Date End Date Votel, Max Ortega MD [address] [facility] [address] PCP - General Family Practice 09/28/23
--- OUTSIDE RECORDS SUMMARY | 2024-12-26 00:35 | XMS_ITS | Clinical Summary ---
Author Organization [place] Address [facility] [facility] [place] [address] Care Team Providers Care Shoe Shanker Name Role Phone Clinic, [facility] Primary Care Provider Allergies No known active allergies Medications levETIRAcetam (KEPPRA) 750 MG tablet Take 750 mg by mouth 2 times daily. 5 Suspended OXcarbazepine (TRILEPTAL) 300 MG tabletIndicatio ns:Epilepsy with partial complex seizures Take 450 mg by mouth every morning. 5 Suspended lamoTRIgine (LAMICTAL) 100 MG tablet Take 150 mg by mouth every morning. 5 12/26/19 25 Discontinued( Med Rec(No AVS / No eCancel)) lamoTRIgine (LAMICTAL) 100 MG tablet Take 100 mg by mouth every evening. 12/26/19 25 Discontinued( Med Rec(No AVS / No eCancel)) OXcarbazepine (TRILEPTAL) 300 MG tabletIndicatio ns:Epilepsy with partial complex seizures Take 300 mg by mouth every evening. Suspended levETIRAcetam (KEPPRA) 500 MG tablet Take 500 mg by mouth 2 times daily. Suspended Active Problems Problem Noted Date Diagnosed Date Hyponatremia 12/24/2024 Seizure disorder 12/24/2024 Encephalopathy 12/24/2024 Encounters Date Type Department Care Team Description 12/24/2024 3:27 AM CDT - Present Hospital Encounter [facility] Medical Surgical [address] [place] [address] Ida Carreon MD Kampfe, Jt L, MD HemStefano simental MD 12/24/2024 Results Follow-Up [facility] - General Medicine & Pediatrics [facility] [place] [address] Malik Cowan PA-C from Last 3 [...] Date Recorded Do you have housing? (Taylor g is defined as stable permanent housing and does not include staying outside in a car, in a tent, in an abandoned building, in an overnight long-term, or couch-surfing.) Yes 12/24/2024 Are you worried [...] on file Legal Sex Male 4:14 AM [employer] Gender Identity Not on file Sexual Orientation [...] CDT from Last 3 Months Results * Sodium (12/25/2024 8:24 PM CDT) Only the most recent of7 resultswithin the time period is included. Sodium 139 135 - 145 mmol/L 12/25/2024 8:50 PM CDT [facility] Blood STRUCTURE OF RIGHT UPPER LIMB / Unknown Venipuncture / Unknown 12/25/2024 8:24 PM CDT 12/25/2024 8:28 PM CDT us Jt Ge MD LAB - BLOOD ORDERABLES Final R esult [facility] Acute Care Lab [facility] Room [address] [place] [address] * Extra Purple Top Tube (12/25/2024 8:34 AM CDT) Hold Specimen JIC 12/25/2024 9:46 AM CDT [facility] Blood STRUCTURE OF RIGHT UPPER LIMB / Unknown Venipuncture / Unknown 12/25/2024 8:34 AM CDT 12/25/2024 8:38 AM CDT Stefano Saez MD LAB - BLOOD ORDERABLES Fi nal Result Performing Organization Address City/[facility]/ZIP Co de Phone Number [facility] Acute Care Lab [address] [facility]. [address] [place] [address] * (ABNORMAL) Basic metabolic panel (12/25/2024 3:05 AM CDT) Sodium 127(L) 135 - 145 mmol/L 12/25/2024 3:46 AM CDT [facility] Potassium 4.6 3.4 - 5.3 mmol/L 12/25/2024 3:46 AM CDT [facility] Chloride 96(L) 98 - 107 mmol/L 12/25/2024 3:46 AM T [facility] Carbon Dioxide (CO2) 20(L) 22 - 29 mmol/L 12/25/2024 3:46 AM CDT [facility] Anion Gap 11 7 - 15 mmol/L 12/25/2024 3:46 AM CDT [facility] Urea Nitrogen 16.7 8.0 - 23.0 mg/dL 12/25/2024 3:46 AM CDT [facility] Creatinine 0.87 0.67 - 1.17 mg/dL 12/25/2024 3:46 AM CDT [facility] GFR Estimate 88 >60 mL/min/1.7 3m2 12/25/2024 3:46 AM T [facility] Comment:eGFR calculated us g 2020 CKD-EPI equation. Calcium 8.5(L) 8.8 - 10.4 mg/dL 12/25/2024 3:46 AM CDT [facility] Glucose 133(H) 70 - 99 mg/dL 12/25/2024 3:46 AM [facility] Blood STRUCTURE OF RIGHT UPPER LIMB / Unknown Venipuncture / Unknown 12/25/2024 3:05 AM CDT 12/25/2024 3:27 AM CDT Jt Ge MD LAB - BLOOD ORDERABLES Final R esult Performing Organization Address City/[facility]/ZIP Co de Phone Number [facility] Lab [address] [facility]. Room [address] [place] [address] * (ABNORMAL) CBC with platelets (12/25/2024 3:05 AM CDT) [facility] WBC Count 11.8(H) 4.0 - 11.0 10e3/uL 12/25/2024 3:30 AM CDT [facility] RBC Count 4.13(L) 4.40 - 5.90 10e6/uL 12/25/2024 3:30 AM CDT [facility] Hemoglobin 13.0(L) 13.3 - 17.7 g/dL 12/25/2024 3:30 AM CDT [facility] Hematocrit 36.9(L) 40.0 - 53.0 % 12/25/2024 3:30 AM CDT [facility] MCV 89 78 - 100 fL 12/25/2024 3:30 AM CDT [facility] MCH 31.5 26.5 - 33.0 pg 12/25/2024 3:30 AM CDT [facility] MCHC 35.2 31.5 - 36.5 g/dL 12/25/2024 3:30 AM CDT [facility] RDW 12.0 10.0 - 15.0 % 12/25/2024 3:30 AM CDT [facility] Platelet Count 182 150 - 450 10e3/uL 12/25/2024 3:30 AM CDT [facility] Blood STRUCTURE OF RIGHT UPPER LIMB / Unknown Venipuncture / Unknown 12/25/2024 3:05 AM CDT 12/25/2024 3:27 AM CDT us Jt Ge MD LAB - BLOOD ORDERABLES Final R esult [facility] Acute Care Lab [address] [facility]. Room [address] [place] [address], [facility] * Treponema Abs w Reflex to RPR and Titer (12/24/2024 10:43 AM CDT) Treponema Antibody Total Nonreactive Nonreactive 12/24/2024 4:27 PM CDT [facility] Blood STRUCTURE OF LEFT UPPER LIMB / Unknown Venipuncture / Unknown 12/24/2024 10:43 AM CDT 12/24/2024 10:47 AM CDT Renae Peters PA-C LAB - BLOOD ORDERABLES Final Result [facility]/PROT/ENDO [facility]/Prot/Endo [address] [facility] [address], [address] [facility] Specialty Lab [address] [facility] [address] [facility], [address] [id number] [place] [address] * (ABNORMAL) Lamotrigine Level (12/24/2024 10:43 AM CDT) Lamotrigine <0.9(L) 3.0 - 15.0 ug/mL 12/25/2024 3:16 PM CDT [facility] Comment: INTERPRETIVE INFORMATION: Lamotrigine Therapeutic Range: 3.0-15.0 ug/mL Toxic: Greater than or equal to 20 ug/mL Pharmacokinetics varies widely, particularly with co-medications and/or compromised renal function. Adverse effects may include dizziness, somnolence, nausea and vomiting. Performed By: [facility] [address] [place] [address] Dental Secretary: Tacos Velasquez MD, PhD CLIA Number: [id number] Blood STRUCTURE OF LEFT UPPER LIMB / Unknown Venipuncture / Unknown 12/24/2024 10:43 AM CDT 12/24/2024 10:47 AM CDT Renae Peters PA-C LAB - BLOOD ORDERABLES Final Result Performing Organization Address City/[facility]/ZIP Co de Phone Number Collect [address] [place] [phone], [facility] [phone] * Keppra (Levetiracetam) Level (12/24/2024 10:43 AM CDT) Keppra (Levetiracetam) Level 36.1 10.0 - 40.0 g/mL 12/24/2024 2:16 PM CDT LABORATORY Blood STRUCTURE OF LEFT UPPER LIMB / Unknown Venipuncture / Unknown 12/24/2024 10:43 AM CDT 12/24/2024 10:47 AM CDT us Renae Peters PA-C LAB - BLOOD ORDERABLES Final Result LABORATORY [facility] Core Lab [address] [facility], [address] * Folate (12/24/2024 10:43 AM CDT) Folic Acid 18.4 4.6 - 34.8 ng/mL 12/24/2024 9:02 PM CDT LABORATORY Blood STRUCTURE OF LEFT UPPER LIMB / Unknown Venipuncture / Unknown 12/24/2024 10:43 AM CDT 12/24/2024 10:47 AM CDT us Renae Peters PA-C LAB - BLOOD ORDERABLES Final Result LABORATORY [facility] Core Lab [address] [place] [address], [address] * (ABNORMAL) Ammonia (12/24/2024 10:43 AM CDT) Pathologist [facility] Ammonia 15(L) 16 - 60 umol/L 12/24/2024 11:04 AM CDT [facility] Blood STRUCTURE OF LEFT UPPER LIMB / Unknown Venipuncture / Unknown 12/24/2024 10:43 AM CDT 12/24/2024 10:46 AM CDT us Renae Peters PA-C LAB - BLOOD ORDERABLES Final Result [facility] Acute Care Lab [address] [facility]. [address] [place] [address], [facility] * Vitamin B12 (12/24/2024 10:43 AM CDT) Vitamin B12 637 232 - 1,245 pg/mL 12/24/2024 2:31 PM CDT LABORATORY Blood STRUCTURE OF LEFT UPPER LIMB / Unknown Venipuncture / Unknown 12/24/2024 10:43 AM CDT 12/24/2024 10:47 AM CDT Renae Peters PA-C LAB - BLOOD ORDERABLES Final Result LABORATORY [facility] [place] Core Lab [address] [facility], [address] [place] [address] * (ABNORMAL) Glucose by meter (12/24/2024 7:58 AM CDT) Only the most recent of2 resultswithin the time period is included. GLUCOSE BY METER POCT 121(H) 70 - 99 mg/dL 12/24/2024 8:06 AM CDT [facility] Comment:Dr/RN Notified Blood, Capillary BLOOD SPECIMEN / Unknown 12/24/2024 7:58 AM CDT 12/24/2024 8:06 AM CDT Jt Ge MD LAB - BEAKER POCT Final Result [facility] Acute Care Lab [address] [facility]. Room [address] [place] [address], [facility] * (ABNORMAL) CBC with platelets and differential (12/24/2024 6:54 AM CDT) WBC Count 10.7 4.0 - 11.0 10e3/uL 12/24/2024 7:50 AM CDT [facility] RBC Count 3.94(L) 4.40 - 5.90 10e6/uL 12/24/2024 7:50 AM CDT [facility] Hemoglobin 12.5(L) 13.3 - 17.7 g/dL 12/24/2024 7:50 AM CDT [facility] Hematocrit 35.4(L) 40.0 - 53.0 % 12/24/2024 7:50 AM CDT [facility] MCV 90 78 - 100 fL 12/24/2024 7:50 AM CDT [facility] MCH 31.7 26.5 - 33.0 pg 12/24/2024 7:50 AM CDT [facility] MCHC 35.3 31.5 - 36.5 g/dL 12/24/2024 7:50 AM CDT [facility] RDW 11.9 10.0 - 15.0 % 12/24/2024 7:50 AM CDT [facility] Platelet Count 173 150 - 450 10e3/uL 12/24/2024 7:50 AM CDT [facility] % Neutrophils 86 % 12/24/2024 7:50 AM CDT [facility] % Lymphocytes 7 % 12/24/2024 7:50 AM CDT [facility] % Monocytes 7 % 12/24/2024 7:50 AM CDT [facility] % Eosinophils 0 % 12/24/2024 7:50 AM CDT [facility] % Basophils 0 % 12/24/2024 7:50 AM CDT [facility] % Immature Granulocytes 1 % 12/24/2024 7:50 AM CDT [facility] NRBCs per 100 WBC 0 <1 /100 025 7:50 AM CDT [facility] Absolute Neutrophils 9.2(H) 1.6 - 8.3 10e3/uL 12/24/2024 7:50 AM CDT [facility] Absolute Lymphocytes 0.7(L) 0.8 - 5.3 10e3/uL 12/24/2024 7:50 AM CDT [facility] Absolute Monocytes 0.7 0.0 - 1.3 10e3/uL 12/24/2024 7:50 AM CDT [facility] Absolute Eosinophils 0.0 0.0 - 0.7 10e3/uL 12/24/2024 7:50 AM CDT [facility] Absolute Basophils 0.0 0.0 - 0.2 10e3/uL 12/24/2024 7:50 AM CDT [facility] Absolute Immature Granulocytes 0.1 <=0.4 10e3/uL 12/24/2024 7:50 AM CDT [facility] Absolute NRBCs 0.0 10e3/uL 12/24/2024 7:50 AM CDT [facility] Blood STRUCTURE OF RIGHT UPPER LIMB / Unknown Venipuncture / Unknown 12/24/2024 6:54 AM CDT 12/24/2024 7:11 AM CDT Ida Carreon MD LAB - BLOOD ORDERABLES Final Result Performing Organization Address City/[facility] de Phone Number [facility] Acute Care Lab [address] [place] [address]. Room [address] [place] [phone] * TSH with free T4 reflex (12/24/2024 6:54 AM CDT) TSH 3.31 0.30 - 4.20 uIU/mL 12/24/2024 7:55 AM CDT [facility] Blood STRUCTURE OF RIGHT UPPER LIMB / Unknown Venipuncture / Unknown 12/24/2024 6:54 AM CDT 12/24/2024 7:11 AM CDT Ida Carreon MD LAB - BLOOD ORDERABLES Final Result Performing Organization Address City/[facility] de Phone Number [facility] Lab [address] [place] [address]. Room [address] [place] [phone] * (ABNORMAL) Osmolality (12/24/2024 6:54 AM CDT) [...] BLOOD ORDERABLES Final R esult [facility] [place] Core Lab [address] [facility], [address] [place] [phone] * (ABNORMAL) Comprehensive metabolic panel (12/24/2024 6:54 AM [facility]) Sodium 120(L) 135 - 145 mmol/L 12/24/2024 7:43 AM [facility] Potassium 4.2 3.4 - 5.3 mmol/L 12/24/2024 7:43 AM [facility] Carbon Dioxide (CO2) 21(L) 22 - 29 mmol/L 12/24/2024 7:43 AM [facility] Anion Gap 9 7 - 15 mmol/L 12/24/2024 7:43 AM [facility] Urea Nitrogen 12.8 8.0 - 23.0 mg/dL 12/24/2024 7:43 AM [facility] Creatinine 0.84 0.67 - 1.17 mg/dL 12/24/2024 7:43 AM [facility] GFR Estimate 89 >60 mL/min/1.7 3m2 12/24/2024 7:43 AM [facility] Comment:eGFR calculated us2020 CKD-EPI equation. Calcium 8.3(L) 8.8 - 10.4 mg/dL 12/24/2024 7:43 AM [facility] Chloride 90(L) 98 - 107 mmol/L 12/24/2024 7:43 AM [facility] Glucose 117(H) 70 - 99 mg/dL 12/24/2024 7:43 AM [facility] Alkaline Phosphatase 63 40 - 150 U/L 12/24/2024 7:43 AM [facility] AST 25 0 - 45 U/L 12/24/2024 7:43 AM [facility] ALT 14 0 - 70 U/L 12/24/2024 7:43 AM CDT [facility] Protein Total 5.5(L) 6.4 - 8.3 g/dL 12/24/2024 7:43 AM CDT [facility] Albumin 3.6 3.5 - 5.2 g/dL 12/24/2024 7:43 AM CDT [facility] Bilirubin Total 0.7 <=1.2 mg/dL 12/24/2024 7:43 AM CDT [facility] Blood STRUCTURE OF RIGHT UPPER LIMB / Unknown Venipuncture / Unknown 12/24/2024 6:54 AM CDT 12/24/2024 7:11 AM CDT us Ida Carreon MD LAB - BLOOD ORDERABLES Final Result Performing Organization Address [facility] de Phone Number [facility] Acute [facility] Lab [address] [place] [address]. Room [address] [place] [phone] * Sodium random urine (12/24/2024 6:17 AM CDT) Sodium Urine mmol/L 22 mmol/L 12/24/2024 6:38 AM CDT [facility] Comment:The reference ranges have not been established in urine sodium. The results should be integrated into the clinical context for interpretation. Urine URINE SPECIMEN OBTAINED BY CLEAN CATCH PROCEDURE / Unknown Non-blood Collection / Unknown 12/24/2024 6:17 AM CDT 12/24/2024 6:24 AM CDT us Ida Carreon MD LAB - URINE ORDERABLES Final Result Performing Organization Address City/[facility] Co de Phone Number [facility] Lab [address] [place] [address]. Room [address] [place] [phone] * Osmolality urine (12/24/2024 6:17 AM CDT) [...] - URINE ORDERABLES Final Result [facility] Core Lab [address] [facility], [address] [place] [address], [facility] from Last 3 Months Insurance [facility] Address: [address] [address] [place] [address] MEDICARE [facility] Address: [address] [address] [place] [address] MEDICARE Advance Directives For more information, please contact: [phone] * Full Code (Latest Code Status on File) Date Activated Date Inactivated Comments 12/24/2024 5:11 AM All basic and advanced life-sustaining interventions are performed as appropriate Question Answer Comments Code status determined by: Discussion with zuri nt/ legal decision maker Care Teams Shoe Shanker Relationship Specialty Start Date End Date [facility], [address] [address] PCP - General 12/24/24
== END 2024-12-24 01:52 | disposition home or self-care (01) ==
PROVIDERS: PCP Student in an Organized Health Care Education/Training Program; Visit Provider Family Medicine
DX: E87.1 Hypo-osmolality and hyponatremia (principal); R56.9 Unspecified convulsions
CPT/HCPCS: A0425; A0427